=== PATIENT | male | born 1940 | race Caucasian/White ===

== ENCOUNTER 2025-10-01 15:59 | Emergency (ER) | payer MEDICARE, OTHER, SELFPAY ==
--- OUTSIDE RECORDS SUMMARY | 2025-08-31 09:20 | XMS_ITS ---
Author Organization [facility] in [place] Address [address] [place] [address] Care Team Providers Care Tunnel Kiln Firer Name Role Phone Betzy NELSON, Suyapa Primary Care Provider Valerio Ace [phone] Encounters Encounter Location Date Provider Diagnosis [facility] [address] [place] [address] 08/31/2025 Valerio Jauregui Plan Of Treatment Next Appt Details Provider Name:Valerio Jauregui, 11/02/2025 02:40:00 PM, [address], [place], [address], Progress Notes * Cordell VILLARREAL PDOB: (85 yo M)Acc No.[id number]:08/31/2025 UNLOCKED PROGRESS NOTE Progress Note Patient: Andrea WARREN Cordell Pillai :?Valerio Jauregui MDDOB:1940???Age:85 Y ???Sex:MaleDate:08/31/2025Phone:[phone]:[address], [id number]:Suyapa Bo MD Subjective: * Chief Complaints: * * Medical History: Objective: * Vitals: Assessment: Plan: * Treatment: * * Electronic signature of Valerio Jauregui MD, [id number] on 10/01/2025 at 03:48 PM EST Sign off status: PendingVisit Status:?R/S (Rescheduled) * Provider: Patrizia Jauregui MD Date: 10/31/2024 Generated for Printing/Faxing/eTransmitting on:?10/01/2025 03:48 PM EST
--- OUTSIDE RECORDS SUMMARY | 2025-09-26 08:46 | XMS_ITS | Continuity of Care Document ---
Author Organization [facility] Address [address] [place] [address] Phone Care Team Providers Care Test Design Engineer Name Role Phone Suyapa Bo MD Primary Care Provider Prince Black MD Attending Provider Igor Kennedy PA-C Emergency Provider Courtney Cleaning MD Admit Provider Courtney Cleaning MD Other Provider Dieudonne Maldonado MD Other Provider Christa Wooten RN Other Provider Unavailable Radha Toure DO Other Provider Claudio Gar MD Other Provider Hermann Luna MD Other Provider Anastasiya Panda APRN Other Provider Vanessa Hackett MD Other Provider Ghazala Li [facility] Other Provider Tara Boston Other Provider Richard Montemayor MD Attending Provider Prince Black MD Other Provider [phone] Jenny Barboza MD Other Provider Hoang Paredes MD Other Provider Maria Antonia Valencia APRN Other Provider [phone] Terrence Duke MD Other Provider Griffin Stephens DO Other Provider Marva Niru M PLANT FACILITIES TECHNICIAN Other Provider Hoang Llanos DO Other Provider Em Pulido DO Other Provider Hoang Llanos DO Other Provider [phone] Tyson Low DO Other Provider Riccardo Sandoval MD Attending Provider Riccardo Sandoval MD Other Provider Norris Cartagena DO Other Provider Griffin Stephens DO Attending Provider [phone] Tara Boston Attending Provider Brian Johnston DO Other Provider Hoang Paredes MD Admit Provider Yakelin Tenorio RN Other Provider Unavailable Korin Bazan RN Other Provider Unavailable Beryl Wright RN Other Provider Unavailable Aure Rehman RN Other Provider Unavailable Latanya Puentes RN Other Provider Unavailable Angélica Paredes RN Other Provider Unavailable Rosie Storm MD Other Provider Serge Rutherford DO Other Provider [phone] Arnulfo Stone MD Other Provider [phone] Albert Ortiz MD Other Provider [phone] Riccardo Rodrigez DO Other Provider Unavailab Omar Land MD Other Provider Unavailable Dilcia Zarco APRN Other Provider Blayne Hinkle MD Other Provider Vivian Gill MD Other Provider Unavailable Tapan Decker MD Other Provider [phone] Riccardo Rosales DO Other Provider Rajinder Clark MD Other Provider Lg Grace MD Other Provider Milana Marcus OUTSIDE OPERATOR-C Other Provider Lukasz Velez PLANT FACILITIES TECHNICIAN Other Provider Unavailable Shawn Dao MD Other Provider Dane Bray MD Other Provider Austin Angeles MD Other Provider Unavailable Angel Luis Carrion DO Other Provider Jaqueline Britton PLANT FACILITIES TECHNICIAN Other Provider [phone] Madeline Burgess MD Other Provider Leslie Panda PLANT FACILITIES TECHNICIAN Other Provider Anita Cox PLANT FACILITIES TECHNICIAN Other Provider Rickey Aj MD Other Provider Unavailable Shivam Gonzalez MD Other Provider DenysTammiealyssa DO Other Provider [phone] Rod Rosas MD Other Provider Addison Tucker MD Other Provider Yanelis Gonzalez PLANT FACILITIES TECHNICIAN Other Provider Unavailable Niki Mays MD Other Provider Hoang Colon MD Other Provider Omar Tapia MD Other Provider Bashir Ace MD Other Provider Sofiya Fang PLANT FACILITIES TECHNICIAN Other Provider Faraz Delgaod PLANT FACILITIES TECHNICIAN Other Provider Lou Moore MD Other Provider Jenna Monroy RN Other Provider Unavailable LigiaVanic DO Other Provider [phone] Uziel Gee DO Other Provider Paul Dang MD Other Provider Linnea Blair OUTSIDE OPERATOR-C Other Provider Unavailable Jacinto Bah MD Other Provider Maria Antonia Valencia APRN Attending Provider Jacinto Bah MD Attending Provider Care Teams Patient Care Team Team Status: Active Member Role/Relationship Status Dates Suyapa Bo MD Primary Care Provider Active Visit Care Team Team Status: Inactive Member Role/Relationship Status Dates Suyapa Bo MD Primary Care Provider Active Sta rt: June 30, 2025 End: June 30neena Black MDAttending ProviderActive Start: June 30, 2025 End: June 30, 2025 Visit Care Team Team Status: Active Member Role/Relationship Status Dates Suyapa Bo MD Primary Care Provider Active Sta rt: August 18, 2025 VAHE Alberts-Chris ProviderActiveStart: August 18, 2025 Courtney Cleaning MDAdmit ProviderActiveStart: August 18, 2025 Courtney Cleaning MDOther ProviderActiveStart: August 18, 2025 Dieudonne Maldonado MDOther ProviderActiveStart: August 18, 2025 Christa Wooten RNOther ProviderActiveStart: August 18, 2025 Christa Wooten RNOther ProviderActiveStart: August 18, 2025 Radha Toure DOOther ProviderActiveStart: August 18, 2025 Claudio Gar MDOther ProviderActiveStart: August 18, 2025 Hermann Luna MDOther ProviderActiveStart: August 18, 2025 Anastasiya Panda APRNOther ProviderActiveStart: August 18, 2025 Vanessa Hackett MDOther ProviderActiveStart: August 18, 2025 RADHA DolanP-BCOther ProviderActiveStart: August 18, 2025 Pantera [place] MDOther ProviderActiveStart: August 18, 2025 Richard Montemayor , MDAttending ProviderActiveStart: August 18, 2025 Riccardo Sandoval MDOther ProviderActiveStart: August 18, 2025 End: September 09, 2025Brian Johnston , DOAttending ProviderActiveStart: August 18, 2025 End: September 09, 2025 Visit Care Team Team Status: Active Member Role/Relationship Status Dates Suyapa Bo MD Primary Care Provider Active Sta rt: August 25, 2025 Igor Kennedy PA-CEmergency ProviderActiveStart: August 25, 2025 Courtney Cleaning MDAdmit ProviderActiveStart: August 25, 2025 Dieudonne Maldonado MDOther ProviderActiveStart: August 25, 2025 Pantera [place] MDOther ProviderActiveStart: August 25, 2025 Prince Black MDOther ProviderActiveStart: August 25, 2025 Jenny Barboza MDOther ProviderActiveStart: August 25, 2025 Honag Paredes MDOther ProviderActiveStart: August 25, 2025 Maria Antonia Valencia , APRNOther ProviderActiveStart: August 25, 2025 Terrence Duke MDOther ProviderActiveStart: August 25, 2025 Griffin Stephens DOOther ProviderActiveStart: August 25, 2025 Niru Durham , APRNOther ProviderActiveStart: August 25, 2025 Hoang Llanos DOOther ProviderActiveStart: August 25, 2025 Em Pulido , DOOther ProviderActiveStart: August 25, 2025 Hoang Llanos , DO FELLOWOther ProviderActiveStart: August 25, 2025 Tyson Low , DO FELLOWOther ProviderActiveStart: August 25, 2025 Jessica Winn ProviderActiveStart: August 25, 2025 Riccardo Sandoval MDOther ProviderActiveStart: August 25, 2025 Norris Cartagena DOOther ProviderActiveStart: August 25, 2025 Griffin Stephens DOAttending ProviderActiveStart: August 25, 2025 Griffin Stephens DOOther ProviderActiveStart: August 25, 2025 Niru Durham , APRNOther ProviderActiveStart: August 25, 2025 Hoang Llanos , DOOther ProviderActiveStart: August 25, 2025 Em Pulido , DOOther ProviderActiveStart: August 25, 2025 Hoang Santosu , DO FELLOWOther ProviderActiveStart: August 25, 2025 Tyson Low , DO FELLOWOther ProviderActiveStart: August 25, 2025 Visit Care Team Team Status: Active Member Role/Relationship Status Dates Suyapa Bo MD Primary Care Provider Active Sta rt: September 01, 2025 Desire Alberts ProviderActiveStart: September 01, 2025 Courtney Cleaning MDAdmit ProviderActiveStart: September 01, 2025 Dieudonne Maldonado MDOther ProviderActiveStart: September 01, 2025 Pantera [place] MDOther ProviderActiveStart: September 01, 2025 Prince Black MDOther ProviderActiveStart: September 01, 2025 Jenny Barboza MDOther ProviderActiveStart: September 01, 2025 Hoang Paredes MDOther ProviderActiveStart: September 01, 2025 Maria Antonia Valencia , APRNOther ProviderActiveStart: September 01, 2025 Terrence Duke MDOther ProviderActiveStart: September 01, 2025 Griffin Stephens , DOAttending ProviderActiveStart: September 01, 2025 Griffin Stephens , DOOther ProviderActiveStart: September 01, 2025 Niru Durham , APRNOther ProviderActiveStart: September 01, 2025 Hoang Llanos , DOOther ProviderActiveStart: September 01, 2025 Em Pulido , DOOther ProviderActiveStart: September 01, 2025 Hoang Llanos , DO FELLOWOther ProviderActiveStart: September 01, 2025 Tyson Low , FELLOWOther ProviderActiveStart: September 01, 2025 Riccardo Sandoval MDOther ProviderActiveStart: September 01, 2025 Norris Cartagena , DOOther ProviderActiveStart: September 01, 2025 Visit Care Team Team Status: Active Member Role/Relationship Status Dates Suyapa Bo MD Primary Care Provider Active Sta rt: September 08, 2025 Mychal Albertsy ProviderActiveStart: September 08, 2025 Courtney Cleaning MDAdmit ProviderActiveStart: September 08, 2025 Dieudonne Maldonado MDOther ProviderActiveStart: September 08, 2025 Pantera Boston MDAttending ProviderActiveStart: September 08, 2025 Pantera [place] MDOther ProviderActiveStart: September 08, 2025 Jenny Barboza MDOther ProviderActiveStart: September 08, 2025 Hoang Paredes MDOther ProviderActiveStart: September 08, 2025 Maria Antonia Valencia , APRNOther ProviderActiveStart: September 08, 2025 Terrence Duke MDOther ProviderActiveStart: September 08, 2025 Griffin Stephens , DOOther ProviderActiveStart: September 08, 2025 Niru Durham , APRNOther ProviderActiveStart: September 08, 2025 Hoang Llanos , Other ProviderActiveStart: September 08, 2025 Em Pulido , DOOther ProviderActiveStart: September 08, 2025 Hoang Llanos , FELLOWOther ProviderActiveStart: September 08, 2025 Tyson Low , DO FELLOWOther ProviderActiveStart: September 08, 2025 Riccardo Sandoval MDOther ProviderActiveStart: September 08, 2025 Brian Johnston , DOOther ProviderActiveStart: September 08, 2025 Visit Care Team Team Status: Active Member Role/Relationship Status Dates Suyapa Bo MD Primary Care Provider Active Sta rt: September 09, 2025 Nahomy Arrieta ProviderActiveStart: September 09, 2025 Hoang Paredes MDOther ProviderActiveStart: September 09, 2025 Yakelin Tenorio , SANCHEZOther ProviderActiveStart: September 09, 2025 Korin Bazan , SANCHEZOther ProviderActiveStart: September 09, 2025 Beryl Wright , SANCHEZOther ProviderActiveStart: September 09, 2025 Aure Rehman RNOther ProviderActiveStart: September 09, 2025 Latanya Puentes RNOther ProviderActiveStart: September 09, 2025 Angélica Paredes RNOther ProviderActiveStart: September 09, 2025 Rosie Storm MDOther ProviderActiveStart: September 09, 2025 Serge Rutherford , DOOther ProviderActiveStart: September 09, 2025 Arnulfo Stone MDOther ProviderActiveStart: September 09, 2025 Norris Cartagena , DOOther ProviderActiveStart: September 09, 2025 Albert Ortiz MDOther ProviderActiveStart: September 09, 2025 Courtney Cleaning MDOther ProviderActiveStart: September 09, 2025 Riccardo Rodrigez , DOOther ProviderActiveStart: September 09, 2025 Omar Rain MDOther ProviderActiveStart: September 09, 2025 Dilcia Zarco , APRNOther ProviderActiveStart: September 09, 2025 Blayne Hinkle MDOther ProviderActiveStart: September 09, 2025 Vivian Gill MDOther ProviderActiveStart: September 09, 2025 Tapan Decker MDOther ProviderActiveStart: September 09, 2025 Riccardo Rosales , DOOther ProviderActiveStart: September 09, 2025 Rajinder Clark MDOther ProviderActiveStart: September 09, 2025 Lg Grace MDOther ProviderActiveStart: September 09, 2025 Milana Marcus , OUTSIDE OPERATOR-COther ProviderActiveStart: September 09, 2025 Lukasz Velez , APRNOther ProviderActiveStart: September 09, 2025 Shawn Dao MDOther ProviderActiveStart: September 09, 2025 Dane Bray MDOther ProviderActiveStart: September 09, 2025 Austin Angeles MDOther ProviderActiveStart: September 09, 2025 Angel Luis Carrion , DOOther ProviderActiveStart: September 09, 2025 Jaqueline Britton , APRNOther ProviderActiveStart: September 09, 2025 Brian Johnston , DOOther ProviderActiveStart: September 09, 2025 Madeline Burgess MDOther ProviderActiveStart: September 09, 2025 Leslie Panda , APRNOther ProviderActiveStart: September 09, 2025 Anita Cox , APRNOther ProviderActiveStart: September 09, 2025 Rickey Aj MDOther ProviderActiveStart: September 09, 2025 Shivam Gonzalez MDOther ProviderActiveStart: September 09, 2025 Elli Mcfarlane , DOOther ProviderActiveStart: September 09, 2025 Rod Rosas MDOther ProviderActiveStart: September 09, 2025 Addison Tucker MDOther ProviderActiveStart: September 09, 2025 Yanelis Gonzalez , APRNOther ProviderActiveStart: September 09, 2025 Niki Mays MDOther ProviderActiveStart: September 09, 2025 Hoang Colon MDOther ProviderActiveStart: September 09, 2025 Omar Tapia MDOther ProviderActiveStart: September 09, 2025 Bashir Ace MDOther ProviderActiveStart: September 09, 2025 Sofiya Fang , APRNOther ProviderActiveStart: September 09, 2025 Faraz Delgado , APRNOther ProviderActiveStart: September 09, 2025 Lou Moore MDOther ProviderActiveStart: September 09, 2025 Jenna Monroy RNOther ProviderActiveStart: September 09, 2025 Jagdish Strong , DOOther ProviderActiveStart: September 09, 2025 Dieudonne Maldonado MDOther ProviderActiveStart: September 09, 2025 Uziel Gee , DOOther ProviderActiveStart: September 09, 2025 Griffin Stephens DOAttending ProviderActiveStart: September 09, 2025 Griffin Stephens DOOther ProviderActiveStart: September 09, 2025 Niru Durham , APRNOther ProviderActiveStart: September 09, 2025 Hoang Llanos DOOther ProviderActiveStart: September 09, 2025 Em Pulido DOOther ProviderActiveStart: September 09, 2025 Hoang Llanos DO FELLOWOther ProviderActiveStart: September 09, 2025 Tyson Low DO FELLOWOther ProviderActiveStart: September 09, 2025 Paul Dang MDOther ProviderActiveStart: September 09, 2025 Linnea Blair NP-COther ProviderActiveStart: September 09, 2025 Pantera [place] MDOther ProviderActiveStart: September 09, 2025 Jacinto Bah MDOther ProviderActiveStart: September 09, 2025 Visit Care Team Team Status: Active Member Role/Relationship Status Dates Suyapa Bo MD Primary Care Provider Active Sta rt: September 16, 2025 Nahomy Arrieta ProviderActiveStart: September 16, 2025 Hoang Paredes MDOther ProviderActiveStart: September 16, 2025 Yakelin Tenorio , SANCHEZOther ProviderActiveStart: September 16, 2025 Korin Bazan , SANCHEZOther ProviderActiveStart: September 16, 2025 Beryl Wright , SANCHEZOther ProviderActiveStart: September 16, 2025 Aure Rehman , SANCHEZOther ProviderActiveStart: September 16, 2025 Latanya Puentes , SANCHEZOther ProviderActiveStart: September 16, 2025 Angélica Paredes , SANCHEZOther ProviderActiveStart: September 16, 2025 Rosie Storm MDOther ProviderActiveStart: September 16, 2025 Serge Rutherford , DOOther ProviderActiveStart: September 16, 2025 Arnulfo Stone MDOther ProviderActiveStart: September 16, 2025 Norris Cartagena , DOOther ProviderActiveStart: September 16, 2025 Albert Ortiz MDOther ProviderActiveStart: September 16, 2025 Courtney Cleaning MDOther ProviderActiveStart: September 16, 2025 Riccardo Rodrigez DOOther ProviderActiveStart: September 16, 2025 Omar Rain MDOther ProviderActiveStart: September 16, 2025 Dilcia Zarco , APRNOther ProviderActiveStart: September 16, 2025 Blayne Hinkle MDOther ProviderActiveStart: September 16, 2025 Vivian Gill MDOther ProviderActiveStart: September 16, 2025 Tapan Decker MDOther ProviderActiveStart: September 16, 2025 Riccardo Rosales DOOther ProviderActiveStart: September 16, 2025 Rajinder Clark MDOther ProviderActiveStart: September 16, 2025 Lg Grace MDOther ProviderActiveStart: September 16, 2025 Milana Marcus , OUTSIDE OPERATOR-COther ProviderActiveStart: September 16, 2025 Lukasz Velez , APRNOther ProviderActiveStart: September 16, 2025 Shawn Dao MDOther ProviderActiveStart: September 16, 2025 Dane Bray MDOther ProviderActiveStart: September 16, 2025 Austin Angeles MDOther ProviderActiveStart: September 16, 2025 Angel Luis Carrion , DOOther ProviderActiveStart: September 16, 2025 Jaqueline Britton , APRNOther ProviderActiveStart: September 16, 2025 Brian Johnston , DOOther ProviderActiveStart: September 16, 2025 Madeline Burgess MDOther ProviderActiveStart: September 16, 2025 Leslie Panda , APRNOther ProviderActiveStart: September 16, 2025 Anita Cox , APRNOther ProviderActiveStart: September 16, 2025 Rickey Aj MDOther ProviderActiveStart: September 16, 2025 Shivam Gonzalez MDOther ProviderActiveStart: September 16, 2025 Elli Mcfarlane , DOOther ProviderActiveStart: September 16, 2025 Rod Rosas MDOther ProviderActiveStart: September 16, 2025 Addison Tucker MDOther ProviderActiveStart: September 16, 2025 Yanelis Gonzalez APRNOther ProviderActiveStart: September 16, 2025 Niki Mays MDOther ProviderActiveStart: September 16, 2025 Hoang Colon MDOther ProviderActiveStart: September 16, 2025 Omar Tapia MDOther ProviderActiveStart: September 16, 2025 Bashir Ace MDOther ProviderActiveStart: September 16, 2025 Sofiya Fang APRNOther ProviderActiveStart: September 16, 2025 Faraz Delgado , APRNOther ProviderActiveStart: September 16, 2025 Lou Moore MDOther ProviderActiveStart: September 16, 2025 Jenna Monroy , RNOther ProviderActiveStart: September 16, 2025 Jagdish Strong , DOOther ProviderActiveStart: September 16, 2025 Dieudonne Maldonado MDOther ProviderActiveStart: September 16, 2025 Uziel Gee , DOOther ProviderActiveStart: September 16, 2025 Griffin Stephens , DOOther ProviderActiveStart: September 16, 2025 Niru Durham , APRNOther ProviderActiveStart: September 16, 2025 Hoang Llanos , DOOther ProviderActiveStart: September 16, 2025 Em Pulido , DOOther ProviderActiveStart: September 16, 2025 Hoang Llanos , DO FELLOWOther ProviderActiveStart: September 16, 2025 Tyson Low , DO FELLOWOther ProviderActiveStart: September 16, 2025 Paul Dang MDOther ProviderActiveStart: September 16, 2025 Linnea Blair , TEZ-COther ProviderActiveStart: September 16, 2025 Pantera [place] MDOther ProviderActiveStart: September 16, 2025 Jacinto Bah MDOther ProviderActiveStart: September 16, 2025 Maria Antonia Valencia , APRNAttending ProviderActiveStart: September 16, 2025 Visit Care Team Team Status: Active Member Role/Relationship Status Dates Suyapa Bo MD Primary Care Provider Active Sta rt: September 23, 2025 Hoang Paredes MDAdmit ProviderActiveStart: September 23, 2025 Hoang Paredes MDOther ProviderActiveStart: September 23, 2025 Yakelin Tenorio , SANCHEZOther ProviderActiveStart: September 23, 2025 Korin Bazan , SANCHEZOther ProviderActiveStart: September 23, 2025 Beryl Wright , SANCHEZOther ProviderActiveStart: September 23, 2025 Aure Rehman , SANCHEZOther ProviderActiveStart: September 23, 2025 Latanya Puentes , SANCHEZOther ProviderActiveStart: September 23, 2025 Angélica Paredes , SANCHEZOther ProviderActiveStart: September 23, 2025 Rosie Storm MDOther ProviderActiveStart: September 23, 2025 Serge Rutherford DOOther ProviderActiveStart: September 23, 2025 Arnulfo Stone MDOther ProviderActiveStart: September 23, 2025 Norris Cartagena , DOOther ProviderActiveStart: September 23, 2025 Albert Ortiz MDOther ProviderActiveStart: September 23, 2025 Courtney Cleaning MDOther ProviderActiveStart: September 23, 2025 Riccardo Rodrigez , DOOther ProviderActiveStart: September 23, 2025 Omar Rain MDOther ProviderActiveStart: September 23, 2025 Dilcia Zarco , APRNOther ProviderActiveStart: September 23, 2025 Blayne Hinkle MDOther ProviderActiveStart: September 23, 2025 Vivian Gill MDOther ProviderActiveStart: September 23, 2025 Tapan Decker MDOther ProviderActiveStart: September 23, 2025 Riccardo Rosales , Other ProviderActiveStart: September 23, 2025 Rajinder Clark MDOther ProviderActiveStart: September 23, 2025 Lg Grace MDOther ProviderActiveStart: September 23, 2025 Milana Marcus , OUTSIDE OPERATOR-COther ProviderActiveStart: September 23, 2025 Lukasz Velez , APRNOther ProviderActiveStart: September 23, 2025 Shawn Dao MDOther ProviderActiveStart: September 23, 2025 Dane Bray MDOther ProviderActiveStart: September 23, 2025 Austin Angeles MDOther ProviderActiveStart: September 23, 2025 Angel Luis Carrion , DOOther ProviderActiveStart: September 23, 2025 Jaqueline Britton , APRNOther ProviderActiveStart: September 23, 2025 Brian Johnston , DOOther ProviderActiveStart: September 23, 2025 Madeline Burgess MDOther ProviderActiveStart: September 23, 2025 Leslie Panda , APRNOther ProviderActiveStart: September 23, 2025 Anita Cox , APRNOther ProviderActiveStart: September 23, 2025 Rickey Aj MDOther ProviderActiveStart: September 23, 2025 Shivam Gonzalez MDOther ProviderActiveStart: September 23, 2025 Elli Mcfarlane , DOOther ProviderActiveStart: September 23, 2025 Rod Rosas MDOther ProviderActiveStart: September 23, 2025 Addison Tucker MDOther ProviderActiveStart: September 23, 2025 Yanelis Gonzalez , APRNOther ProviderActiveStart: September 23, 2025 Niki Mays MDOther ProviderActiveStart: September 23, 2025 Hoang Colon MDOther ProviderActiveStart: September 23, 2025 Omar Tapia MDOther ProviderActiveStart: September 23, 2025 Bashir Ace MDOther ProviderActiveStart: September 23, 2025 Sofiya Fang , APRNOther ProviderActiveStart: September 23, 2025 Faraz Delgado , APRNOther ProviderActiveStart: September 23, 2025 Lou Moore MDOther ProviderActiveStart: September 23, 2025 Jenna Monroy RNOther ProviderActiveStart: September 23, 2025 Jagdish Strong , DOOther ProviderActiveStart: September 23, 2025 Dieudonne Maldonado MDOther ProviderActiveStart: September 23, 2025 Uziel Gee , DOOther ProviderActiveStart: September 23, 2025 Griffin Stephens , DOOther ProviderActiveStart: September 23, 2025 Niru Durham , APRNOther ProviderActiveStart: September 23, 2025 Hoang Llanos , DOOther ProviderActiveStart: September 23, 2025 Em Pulido , DOOther ProviderActiveStart: September 23, 2025 Hoang Llanos , DO FELLOWOther ProviderActiveStart: September 23, 2025 Tyson Low , FELLOWOther ProviderActiveStart: September 23, 2025 Paul Dang MDOther ProviderActiveStart: September 23, 2025 Linnea Blair NP-COther ProviderActiveStart: September 23, 2025 Pantera Boston MDOther ProviderActiveStart: September 23, 2025 Jona Paytonending ProviderActiveStart: September 23, 2025 Jacinto Bah MDOther ProviderActiveStart: September 23, 2025 Chief Complaint and Reason for Visit Chief Complaint Admit Date CEA: 4 mo f/u COPD, Pulm Nodules Sept er 2024 2:16pm Vomiting, abd pain August 18, 2025 6 :31pm Vomiting, abd pain August 25, 2025 1 2:00am Vomiting, abd pain September 01, 2025 12:00am Vomiting, abd pain September 08, 2025 12:00am gangrenous cholecystits s/p cholecysecto my September 09, 2025 12:12pm gangrenous cholecystits s/p cholecysecto my September 16, 2025 12:00am gangrenous cholecystits s/p cholecysecto my September 23, 2025 12:00am Reason for Visit Admit Date Pneumonia June 30, 2025 2:16pm Pulmonary nodules June 30, 2025 2:16pm COPD (chronic obstructive pulmonary dise ase) June 30, 2025 2:16pm Pressure ulcer of left buttock, stage 3 August 18, 2025 6:31pm Abdominal pain August 18, 2025 6 :31pm Acute cholecystitis August 18, 2025 6 :31pm Acute gangrenous cholecystitis July 232024 6:31pm Acute kidney injury superimposed on CKD August 18, 2025 6:31pm Acute UTI August 18, 2025 6 :31pm Alzheimers disease August 18, 2025 6 :31pm Ambulatory dysfunction August 18 6:31pm Anemia August 18, 2025 6 :31pm Anemia of renal disease August 18 6:31pm Anticoagulant long-term use July 6:31pm Bile leak August 18, 2025 6 :31pm Bile leak, postoperative August 18, 2 025 6:31pm Candidemia August 18, 2025 6 :31pm Cholelithiasis August 18, 2025 6 :31pm CKD (chronic kidney disease), stage III August 18, 2025 6:31pm COPD (chronic obstructive pulmonary dise ase) August 18, 2025 6:31pm Counseling regarding advance directives and goals of care August 18, 2025 6:31pm History of heart artery stent August 182024 6:31pm History of non-ST elevation myocardial infarction (NSTEMI) August 18, 2025 6:31pm Hyperkalemia August 18, 2025 6 :31pm Hypertensive chronic kidney disease with stage 1 through stage 4 chronic ki August 18, 2025 6:31pm Hyponatremia August 18, 2025 6 :31pm Impaired mobility and activities of boy y living August 18, 2025 6:31pm 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 Octobe r 2024 6:31pm Leukocytosis August 18, 2025 6 :31pm Mechanical heart valve present July 232024 6:31pm Metabolic acidosis August 18, 2025 6 :31pm Severe protein-calorie malnutrition Octo claire 2024 6:31pm Arthritis September 09, 2025 12:12pm Debility September 09, 2025 12:12pm Ileostomy in place September 09, 2025 12:12pm Neurogenic bladder September 09, 2025 12:12pm Pressure injury of deep tissue of left h eel September 09, 2025 12:12pm Pressure ulcer of left buttock, stage 3 September 09, 2025 12:12pm Stage I pressure ulcer of right heel Navin embcasi 2024 12:12pm Acute gangrenous cholecystitis September 09, 2025 12:12pm Ambulatory dysfunction September 09 12:12pm Anemia September 09, 2025 12:12pm Bile leak September 09, 2025 12:12pm Candidemia September 09, 2025 12:12pm CKD (chronic kidney disease), stage III September 09, 2025 12:12pm COPD (chronic obstructive pulmonary dise ase) September 09, 2025 12:12pm Counseling regarding advance directives and goals of care September 09, 2025 12:12pm Hyperkalemia September 09, 2025 12:12pm Hypertensive chronic kidney disease with stage 1 through stage 4 chronic ki September 09, 2025 12:12pm Impaired mobility and activities of boy y living September 09, 2025 12:12pm 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 Novemb er 2024 12:12pm Metabolic acidosis September 09, 2025 12:12pm Severe protein-calorie malnutrition Hari mbcasi 2024 12:12pm Reason for Referral Type Reason(s) Provider Provider Contact Information Freya tavera Address Start Date Please schedule when discharged from Rehab.To follow at Rehab.Follow up after discharge from skilled facilityfor left buttock and left heel; call to schedule follow up appointmentFollow up with rehab physician as neededPlease schedule when discharged from Rehab.[facility] Coumadin ClinicWork Phone: [phone] [facility] [address] [place] [address]Af follow at Rehab.Dieudonne Tapia MDWork Phone: [phone] [facility] [address] [place] [address]Kclmohpuoqxjosh Black MDWork Phone: [phone] [facility] [address] [place] [address]DiayqAnastasiya Panda , APRNWork Phone: [phone] [facility] [place] [address]Cicpen up after discharge from skilled facilityK[facility] Coumadin ClinicWork Phone: [phone] [facility] [address] [place] [address]uce left buttock and left heel; call to schedule follow up appointmentNOR[facility]WEST [facility] Wound Care CenterWork Phone: [phone] [place] [address]UlixsoDieudonne Tapia MDWork Phone: [phone] [facility] [address] [place] [address]Vlutipmmmdther Terra Black MDWork Phone: [phone] [facility] [address] [place] [address]DxetyAnastasiya Panda , APRNWork Phone: [phone] [facility] [address] [place] [address]Tzxe to schedule follow up appointment with PCP after discharge from skilled facilitySuyapa Bo MDWork Phone: [phone] [facility] [place] [address]Mhcxce up with rehab physician as neededHoang Paredes MDWork Phone: [phone] [facility], [address] [place] [address] Allergies, Adverse Reactions, Alerts Allergen Type Severity Reaction Last Updated Verified Status Vhzkizs-MDM-VlS Reductase Inhibitor Allergy Unknown Joint Pain July 9:59am Yes Active Social History Smoking Status Status Start Date End Date Date of Observa tion Never smoked tobacco (finding) September 14, 2025 4:28pm Observation Status Observation Response Date of Response Legal Sex Male (finding) Sex Assigned At BirthMaleApril 1939 Social History Assessments Assessment Value Date Recorded SDOH Follow up September 09, 2025 12:16pmQuestionAnswerDate RecordedHas the SDOH screening changed since admission?[facility] 2024 12:16pm Assessment Value Date Recorded SDOH Follow up September 07, 2025 2:59pmQuestionAnswerDate RecordedHas the SDOH screening changed since admission?[facility] 2024 2:59pm Assessment Value Date Recorded SDOH Follow up August 21, 2025 3:55pmQuestionAnswerDate RecordedHas the SDOH screening changed since admission?NOctober 2024 3:55pm Family History Relationship Condition Age at Onset Recorded Date/T torri Not Specified Myocardial infarction Unknown Disorder of thyroidUnknownfatherHeart diseaseUnknownDeceasedUnknownmother DeceasedUnknownMalignant neoplasmUnknownsisterDeceasedUnknown Problems Active Problems Problem Diagnosis/Recorded Date Onset Date Status C alannah Stage I pressure ulcer of ri ght heel September 09, 2025 2:37pm Unknown Active Pressure ulcer of left buttock, stage 3Nov2024 3:01pmUnknownActive Pressure injury of deep tissue of left heelSeptember 09, 2025 2:37pmUnknown ActiveIleostomy in placeOctober 2018 4:08acNeiniefAjqveo4956Ghvl cancer August 06, 2019 11:11amUnknownActiveNeurogenic bladderAugember 2024 2:34pmUnknownActiveArthritisOctober 2018 11:10amUnknownActive HyperlipidemiaOctober 2018 11:08amUnknownActiveNasal polypsJune 2023 1:02pmUnknownActiveCramps of lower extremityJun2024 7:07amUnknownActive Pulmonary nodulesJune 2023 11:47amUnknownActiveDebilityNovember 2024 2:33pmUnknownActivePneumoniaOctober 2018 11:11amUnknownActiveAsthmaOctober 2018 11:07amUnknownActiveInactive/Resolved Problems Problem Diagnosis/Recorded Date Onset Date Status C omments ORLIN (acute kidney injury) August 06, 2019 8:43am Unknown Resolved Proble m List clean-up per request of Phys. EHR Cmte ORLIN (acute kidney injury) January 03, 2025 11:42am Unknown Resolved Bile leak, postoperativeNovember 2024 2:55pmUnknownResolvedCounseling regarding advance directives and goals of careNovember 2024 3:18pmUnknown ResolvedImpaired mobility and activities of daily livingNovst. mary's hospital 2024 2:55pmUnknownResolvedHistory of non-ST elevation myocardial infarction (NSTEMI) August 19, 2025 1:58pmUnknownResolvedHistory of mechanical aortic valve replacementMar 2024 2:32pmUnknownResolvedSevere protein-calorie malnutritionNovember 2024 11:21amUnknownResolvedAmbulatory dysfunction September 07, 2025 11:21amUnknownResolvedHistory of heart artery stentMar 2024 12:30pmUnknownResolvedCKD (chronic kidney disease), stage IIIMar 2024 4:27pmUnknownResolved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Nov2024 9:13amUnknownResolvedAlzheimers diseaseJune 2024 7:07amUnknown ResolvedAnemiaNov2024 11:21amUnknownResolvedAnticoagulant long-term useOctten broeck hospital 2018 7:25amUnknownResolvedProblem List clean-up per request of Phys. EHR CmteHypertensive chronic kidney disease with stage 1 through stage 4 chronic kidney disease, or unspecified chronic kidney diseaseNovember 2024 9:17amUnknownResolvedHyponatremiaNovember 2024 2:03pmUnknownResolved LeukocytosisNov2024 9:13amUnknownResolvedCandidemiaNovst. mary's hospital 2024 2:55pmUnknownResolvedHAP (hospital-acquired pneumonia)January 03, 2025 11:42amUnknownResolvedPleural effusionMarch 2024 1:03pmUnknownResolved Aspiration pneumoniaOctober 2018 7:24amUnknownResolvedProblem List clean- up per request of Phys. EHR CmteSteroid-induced hyperglycemiaMarch 2024 9:57amUnknownResolvedUrinary retentionMarch 2024 12:26pmUnknownResolved Mechanical heart valve presentOctober 2024 1:58pmUnknownResolvedAcute kidney injury superimposed on CKDOctober 2024 3:26pmUnknownResolvedIron deficiency anemiaMarch 2024 12:55pmUnknownResolvedAcute non-ST elevation myocardial infarction (NSTEMI)January 03, 2025 11:42amUnknownResolvedDVT prophylaxisOctober 2018 8:43amUnknownResolvedProblem List clean-up per request of Phys. EHR CmteSupratherapeutic INRMay 2019 5:37pmUnknown ResolvedProblem List clean-up per request of Phys. EHR CmteIleostomy status August 07, 2019 12:16amUnknownResolvedProblem List clean-up per request of Phys. EHR CmteAcute UTIMay 2019 5:37pmUnknownResolvedProblem List clean-up per request of Phys. EHR CmteAcute UTIOctober 2024 10:03pmUnknownResolved SBO (small bowel obstruction)August 06, 2019 8:42amUnknownResolvedProblem List clean-up per request of Phys. EHR CmteCOPD (chronic obstructive pulmonary disease)August 06, 2019 11:07amUnknownResolvedMetabolic acidosisOctober 2024 3:27pmUnknownResolvedH/O aortic valve replacementOctober 2018 8:43am UnknownResolvedProblem List clean-up per request of Phys. EHR CmteBile leak August 31, 2025 3:11pmUnknownResolvedAnemia of renal diseaseMarch 2024 4:33pmUnknownResolvedNausea & vomitingMay 2019 5:37pmUnknownResolved Problem List clean-up per request of Phys. EHR CmteAbdominal painOctober 2024 10:03pmUnknownResolvedHypertensionOctober 2018 11:08amUnknownResolved HypotensionMarch 2024 12:53pmUnknownResolvedPneumoniaOctober 2018 4:48pmUnknownResolvedProblem List clean-up per request of Phys. EHR Cmte PneumoniaOctober 2018 7:24amUnknownResolvedProblem List clean-up per request of Phys. EHR CmteStrokeOctober 2018 11:10amUnknownResolvedAcute cholecystitisOctober 2024 3:28pmUnknownResolvedAcute gangrenous cholecystitisNov2024 2:54pmUnknownResolvedCholelithiasisOctober 2024 10:03pmUnknownResolvedNSVT (nonsustained ventricular tachycardia) January 13, 2025 12:30pmUnknownResolvedHyperkalemiaMercy Health [facility]field Hospital 2024 4:26pm UnknownResolved Medications Medication Status Dose Units Route Directions Qty Days Refills S tart Date Stop Date End Date Reason(s) Instructions Adherence Donepezil 10 mg tablet Active 10 MG PO Every mor tammy March 02, 2020 11:00pmUnknownAlbuterol Sulfate (Ventolin Hfa) 90 mcg/actuation Hfa Aerosol LuadbrnQkkseuhqooge6AQFCVEPSAUPRERMVUQI 4-6 HOURS as needed for Shortness Of BreathMa2019 11:00pmM[facility] 20[facility] 2:22pm Txoknwmgsly-Uybgesfhx-Edleinfd (Trelegy Ellipta) 100-62.5-25 mcg blister with cfpkquVafdkwwirvqp0QSPXSCASOKSPQZIzvho morningMa2019 11:00pmJune 2023 6:47amCephalexin (Keflex) 500 mg sfmdnxtUycpuwborgef352IFBDOnssk bspmj6888 March 02, 2020 11:00pmJune 2023 11:50amOndansetron 4 mg tablet,ptttoolvtvmiztJldmyupcnvon8LWCCL2Z as needed for nausea and aprhgriw280 March 02, 2020 11:00pmJune 2023 8:18amcalcium carbonate-vitamin D3 Tmzenglbywet2MUCGYQvcshBodjr 2024 11:00pmNovst. mary's hospital 2024 12:42pm vxshuoatwgqSpgattxypysr25ULJKIrhta dailyMercy Health Fairfield Hospital 2024 11:00pmSeptember 2024 1:30pmHold if SBP <508hbacovmlscketkiunyuPxkpnbvfbxer36ZVYYZtkieZdikr 2024 11:00pmMercy Health Fairfield Hospital 2024 10:37amisosorbide utpuecvpawjHljhffkwyygk50FUYM .qdinnerMercy Health Fairfield Hospital 2024 11:00pmMercy Health Fairfield Hospital 2024 10:37foekjlrwffXbqlvdvkafee663 MGPODailyMercy Health Fairfield Hospital 2024 11:00pmMercy Health [facility] Hospital 2024 10:37amTamsulosin (Flomax) 0.4 mg capsuleDiscontinued0.4MGPODailyMercy Health Fairfield Hospital 2024 11:00pmDeceencompass health valley [facility] 2024 2:17pmWarfarin 6 mg WsquzjZxxxfuwexinj9RABK.COMPLEXMercy Health Fairfield Hospital 2024 11:00pmJune 2024 11:48am6 mg orally SUMOTUTHFR; 3 mg orally WESAClonidine Hcl 0.2 mg tabletDiscontinued0.2MGPOTwice dailyMercy Health Fairfield Hospital 2024 11:00pmMercy Health Fairfield Hospital 2024 10:36amClopidogrel 75 mg MevwzxFtczylqurcnb30FNMDQyouv164430Nzpwg 2024 11:00pmNovst. mary's hospital 2024 2:58pmAspirin 81 mg Tablet,Delayed Release (Dr/Ec) Oijbhf46VFOXRljbv25601Iuiyy 2024 11:00pmUnknownNitroglycerin 0.4 mg Tablet, SublingualActive0.1VQJYDWPOWKSLM2L as needed for Chest Jacj67608Dwpgm 2024 11:00pmUnknownMetoprolol Tartrate 25 mg WdlmzsSstdgemjhlpx29UMWYYmbjq sdchf594386Hjavv 2024 11:00pmJune 2024 11:47amAmiodarone 200 mg QimpgaMpdntjshtdza393FZSVYudmv64957Gxmow 2024 11:00pmApril 2024 1:48pmFurosemide 20 mg DzqsnfDfdxikxtslsb58TVHGQwist at 1488305013Zpaho 2024 11:00pmApril 2024 1:47pmIsosorbide Mononitrate 30 mg tablet extended release 24 jlLrejvnayrkxz79YQEVUijuu630353Ceovv 2024 11:00pm[facility] 2024 2:58pmAmiodarone 200 mg bfnwspNkvzifqulmsc725KLKSMwuqv219943Nmjnj 2024 11:00pmD[facility] 2024 2:17pmstart after 2 weeks of 400 mg daily Atorvastatin 20 mg JsbhzjFutyam33IHUJSrkao pqmfhyj10430Cvepp 2024 11:00pm UnknownAcetaminophen (Tylenol) 325 mg WtszloCgmyhy856KFBXU3K102656Frsuinnv 2024 12:00amUnknownSodium Bicarbonate 650 mg FeotmwHnwqcsqydlgd6709WWZN1t/Day with omyhe896168Tohrkyzl 2024 12:00am[facility] 20[facility] 2:17pmOxycodone 5 mg QorbnmMosjupeyqzqd6SXCDFpino 6 hours as needed for Iiof8718Dgvziehg 2024[facility] 2024 2:17pmAcute gangrenous cholecystitis Acute cholecystitisSodium Zirconium Cyclosilicate (Lokelma) 10 gram Powder In DelpctWgitxoguwqwz14GNVABtwji149Aluvfrie 2024 12:00am[facility] 2024 2:17pmMicafungin 100 mg recon lxkdKqrofsqilbqs271BIHULoiez9Ffkjkdgw 2024 12:00am[facility] 2024 2:17pmadminister over 60 minsTorsemide 20 mg Tablet Nmvnfd92XRTZXPWHW@653926Ksahaeqq 2024 12:00amUnknownOxycodone 5 mg Tablet Kdqnrf9MHNSWoryl 6 hours as needed for Ufdp2979Dlkdwqdt 5th, 2025Pressure injury of right heel, stage 1 Cramps of lower extremity Pressure ulcer of right heel, stage 1 Cramp and spasmUnknownHeparin, Porcine (Pf) (Heparin Lockflush(Porcine)(Pf)) 100 unit/mL RjtyhdrQrbipl990VCHBAT-HCVXSbmho at yzfqaps11Nwkfvmrf 5th, 2025 12:00am UnknownMelatonin 5 mg SyevxiSswaju6QFYLNumla at dthsjmi46Xnjzncnb 5th, 2025 12:73wsTknvjlcOneycumMftbgp8yrwdnjajldfbjsFnldx pnurqwy30Zprnrksx 5th, 2025 12:00amUnknownWarfarin 2 mg qzbnqeXswrya8JJJDIdpgm10400Wfyzztuu 6th, 2025 12:00amUnknownCholestyramine (With Sugar) 4 gram PowderDiscontinued0.ROUTE .COMPLEXOctten broeck hospital 2018 11:00pm[facility] 2023 6:48amOne scoop in juice or waterMontelukast (Singulair) 10 mg NhgixrHfqslnilirzy04MLHGOemszulGxlzvnq 2018 11:00pm[facility] 2024 2:17pmAlbuterol Sulfate (Ventolin Hfa) 90 mcg/actuation Hfa Aerosol GajqxbtVrkxgnshxgyl64GCUPPIFOUSFPTK0G as needed for Shortness Of BreathOctten broeck hospital 2018 11:00pmMay 2019 2:26pm Limevohvjjf-Dzjyrrvzd-Vayvfxxi (Trelegy Ellipta) 100-62.5-25 mcg Blister With RqpqfgJamsdrtaootc981QTUNARLSDHXLTVxskgStbhxfv 2018 11:00pmMay 2019 2:26pmMultivitamin (Daily Multi-Vitamin) ArtkfwJbegobakyqao8QFJFAFutjwXctokzr 2018 11:00pmMercy Health [facility] Hospital 2024 10:17wqFqgep-2i-Vnk-Epa-Fish Oil (Troup-3 Fish Oil) 300-1,000 mg JjbhylyGqaedpqydckp2678TGCFGVhxke dailyOctten broeck hospital 2018 11:00pmMercy Health [facility] Hospital 2024 10:38amVerapamil 180 mg Tablet Extended Release Rxlmraadylyz003VSCQZzkbnCaiddtm 15th, 2019 11:00pmMarch 2024 10:37am Yfcwiavtplmu-Rbyzpezt-Knjdky (Vision Plus Lutein) VtgjdrQcpvwmqjdfkh4ZLEUYZgtsa August 05, 2019 11:00pmJune 2023 8:19amWarfarin 6 mg TabletDiscontinued 6MGPODailyOct2018 11:00pmOct2018 6:52amAmoxicillin-Pot Clavulanate (Augmentin) 500-125 mg ykrbnaMrvmbbemouzx9DADLGFqduk olwuj588Sonpnun 19th, 2019 11:00pmMay 2019 2:26pmWarfarin 6 mg VyeqgzTgxojzungjwu8RFPN Rfqvq55HcdknniAugust 10, 2019 6:49amMarch 2024 10:39amContinue to titrate dose as he previously done prior to admission.Glipizide 5 mg ljamznZwwjewtpsndo1CHLF DailyJune 2023 11:00pmJun2023 8:18amFreeTextSi tablet 30 minutes before breakfast Orally Once a day; Note: Source Status: Taking; Pr ovider: Wayne Morrison ( )Enoxaparin 100 mg/mL syringe Xthfaxnvhxzs734XIRUDUOUVm DirectedJun2023 11:00pmJun2023 8:19am FreeTextSig: as directed Injection; Note: Source Status: Taking; Provider: Wayne Morrison ( )Cholestyramine (With Sugar) 4 gram powder Rneantebgzpf1WAYXHLGlamlZmms 2nd, 2024 11:00pmMercy Health [facility] Hospital 2024 11:34am FreeTextSi packet mixed with water or non-carbonated drink Orally Once a day; Note: Source Status: Taking; Provider: Wayne Morrison ( )Wfkdubwnbxh-Msicmyltk-Gyjbmpuk (Trelegy Ellipta) 100-62.5-25 mcg blister with rlqsktJxfspvcocstq2YCASCBWNXZCJSKqbfrYmvt 2023 11:00pmSeptember 09, 2025 12:43pmFreeTextSi puff Inhalation Once a day; Note: Source Status: Continue; Provider: Wayne BarakatVit E-Txxcoe-Unclgqrk capsuleDiscontinuedCAPPODailyJune 2023 11:00pmMarch 2024 10:38am Furosemide 20 mg meekxbQwbmcufejguf40WAGPKolqo dailyApr2024 1:45pmJune 2024 11:46amEmpagliflozin (Jardiance) 25 mg zwkhciBncjvbfclhif95IZUSUywal February 16, 2025 11:00pmNovember 2024 2:58pmAmiodarone 200 mg tablet Uypzdjdtsiqj099XCDNJohzcKbksb 2024 1:48pmApr2024 1:54pm Pantoprazole 40 mg tablet,delayed release (DR/EC)Xykrzx69WKVPHlxosDwkue 28th, 2025 11:00pmUnknownFerrous Sulfate 325 mg (65 mg iron) tablet,delayed release (DR/EC)Mzgckuigrqoa773JDQCUfqtNqqxi 2024 11:00pmSeptember 25, 2025 2:17pm On Hold: pending improvement with therapy and bowelsTerazosin 2 mg capsule Xblapzycunyp2WRABRsbnh at bedtimeApr2024 11:00pmDe2024 2:17pmOxygen unitDiscontinued0.RouteApril 2024 11:00pmApr2024 2:00pmAs directedOxygen unitDiscontinued0.RouteApril 2024 1:58pmDe2024 2:17pmAs directed 2-3 L/M [facility].Metoprolol Succinate 50 mg tablet extended release 24 jkEynyij60MIZJHxnefRsbn 2024 11:00pmUnknownWarfarin 2 mg uauuzwQetcrpntcaee3WMQTBhrnyLsec 2024 11:00pm September 25, 2025 2:17pmTorsemide 20 mg krsxagWnuyvlshoaeu40USIECmjphApbh 2024 11:00pmSeptember 25, 2025 2:17pmOn Hold: Until seen by nephrology or increased swelling Immunizations Immunization Event Date Not Given Reason Dose Number Front Maker Lot Number Reason(s) Given Vaccine Information Statement (VIS) Detail Administration Location COVID-19 mRNA-1273 (Moderna) November 24, 2020 COVID-19 mRNA-1273 (Moderna)December 22OVID-19 mRNA-1273 (Moderna)September 26, 2021Fluzone QIV High-Dose 65YR+July 01, [id number] Medical Equipment Device Date Implanted Device Details CL STENT DANICA FRONTIER 3.0 X 12 January 06, 2025 CL STENT DANICA FRONTIER 3.0 X 30March L STENT DANICA FRONTIER 3.5 X 18 January 06, 2025Femoral artery closure plug/patch, synthetic polymerMarch 2024UDI: [id number] Issuing Agency: [facility] Device Id: [id number] Lot Number: [id number] Vital Signs Vital Reading Result Reference Range Collection Date/Time Height 72 [in_i] June 30, 2025 1:49yfBbvdqu45.82 kgSept2024 1:31pmHeart Rate94 /bxx09-810Kneifjuvb 9th, 2025 1:31pmRespiratory rate20 /bzt15-25Sclefibvi 9th, 2025 1:31pmOxygen saturation by Pulse kqawbxnk03 %95-100Sept2024 1:31pmBP Qzsimgwq386 mm[Hg]100-140Sept2024 1:31pmBP Ozgxxkcqx74 mm[Hg]60-100September 2024 1:31pmBMI (Body Mass Index)25.3 kg/b7Ggyyykdyf2024 1:31pmInhaled oxygen flow rate2 L/minSept2024 1:31pmHeight 77 [in_i]September 08, 2025 3:88tvJdcsew82.50 kgNov2024 5:40amBody Vhcbrpypmon92.9 [degF]97.6-99.0September 09, 2025 8:22amHeart Rate90 /xyg04-090 September 09, 2025 8:22amRespiratory rate17 /cgh82-62WluozxxqSeptember 09, 2025 8:22am Oxygen saturation by Pulse ycjnlpel46 %95-100September 09, 2025 8:22amBP Kxtaynmb919 mm[Hg]100-140September 09, 2025 8:22amBP Rmcongtov65 mm[Hg]60-100 September 09, 2025 8:22amInhaled oxygen flow rate2 L/minAt[facility] Health [facility]2024 8:18hhDeyuqz76 [in_i]September 22, 2025 12:24uhOncipe17.90 kgDecember 2024 4:27amBody Rswavxaoied71.9 [degF]97.6-99.0Dece2024 6:45amHeart Vezd047 /bhf39-727UgvhlfgrSeptember 26, 2025 6:45amRespiratory rate20 /fee53-36Szxyabri 6th, 2025 6:45amOxygen saturation by Pulse iwypvobq969 %95-100September 26, 2025 6:45amBP Glthrfob931 mm[Hg]100-140Dece2024 6:45amBP Hxorvtdyf10 mm[Hg] 60-100Dece2024 6:45amInhaled oxygen flow rate2 L/minDs[facility] 2024 8:00am Advance Directives Advance Directive Response Recorded Date/ Time Advance Directives Yes April 03 8:07am Insurance Providers Guarantor Cordell Villarreal , P Address [address] [place] [address]Vherbqb Info.Home Phone: Coverage Status Update:2025 Payer Group Member ID Coverage Type Subscriber Relationship to Subscriber Effective Date Expiration Date Medicare [id number] Kline , P Id: [id number] [address] [place] [address] Home Phone: Email: [email or web address]-IP Part A [id number] Kline , P Id: [id number] [address] [place] [address] Home Phone: Email: [email or web address] [facility] [employer] [place] [id number] Kline , Freya Id: [id number] [address] [place] [address] Home Phone: Email: [email or web address] [email or web address] Encounter Location(s) Arrival/Admit Date Discharge/Departure Date Discharge/Departure Disposition Provider(s) Departed Physician/ Provider [facility] June 30, 2025 2:16pm June 30, 2025 3:12pm Discharged to home care or self care (routine discharge) Prince Black MD Non-patient / Non-visit -[facility] Cardiology O ctober 2024 6:31pm Chas Duran MDNon-patient / Dch-yptgg-Brxhpikxg Health [facility] DisNovst. [facility] 2024 12:00amMRianna Gary-patient / Svz-dblmr-Mndssmwqj [facility] 20[facility] 12:00amGriffin Stephens Jr DONal-patient / Vzj-dwwcx-Wxrmxxyjm [facility] 2024 12:00Woodrow Boston MD Non-patient / Tgf-lbhle-Pappfryxj [facility] 2024 12:12pm Jr Meli Moreland-patient / Hge-lrvuh-Zrngvnhmt [facility] September 16, 2025 12:00Stacia Hanson-patient / [facility]-visit- [facility] Neph [facility] 2024 12:00Bella Bah MD Recent Diagnosis Onset Date Admit Date Pneumonia Unknown June 30, 025 2:16pm Pulmonary nodules Unknown June 30, 2025 2:16pm COPD (chronic obstructive pulmonary disease) Unk nown June 30, 2025 2:16pm Pressure ulcer of left buttock, stage 3 Unknown August 18, 2025 6:31pm Abdominal pain Unknown August 18 6:31pm Acute cholecystitis Unknown July 6:31pm Acute gangrenous cholecystitis Unknown O ctober 2024 6:31pm Acute kidney injury superimposed on CKD Unknown August 18, 2025 6:31pm Acute UTI Unknown August 18 6:31pm Alzheimers disease Unknown August 18, 2025 6:31pm Ambulatory dysfunction Unknown July 232024 6:31pm Anemia Unknown August 18 6:31pm Anemia of renal disease Unknown August 18, 2025 6:31pm Anticoagulant long-term use Unknown Octo 2024 6:31pm Bile leak Unknown August 18 6:31pm Bile leak, postoperative Unknown August 18, 2025 6:31pm Candidemia Unknown August 18 6:31pm Cholelithiasis Unknown August 18 6:31pm CKD (chronic kidney disease), stage III Unknown August 18, 2025 6:31pm COPD (chronic obstructive pulmonary disease) Unk nown August 18, 2025 6:31pm Counseling regarding advance directives and goals of care Unknown August 18, 2025 6:31pm History of heart artery stent Unknown Oc tober 2024 6:31pm History of non-ST elevation myocardial infarction (NSTEMI) Unknown August 18, 2025 6:31pm Hyperkalemia Unknown August 18 6:31pm Hypertensive chronic kidney disease with stage 1 through stage 4 chronic ki Unknown August 18, 2025 6:31pm Hyponatremia Unknown August 18 6:31pm Impaired mobility and activi ties of daily living Unknown August 18, 2025 6:31pm 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 Unknown August 18, 2025 6:31pm Leukocytosis Unknown August 18 6:31pm Mechanical heart valve present Unknown O ctober 2024 6:31pm Metabolic acidosis Unknown August 18, 2025 6:31pm Severe protein-calorie malnutrition Unknown August 18, 2025 6:31pm Arthritis Unknown September 09 12:12pm Debility Unknown September 09 12:12pm Ileostomy in place Unknown August 12:12pm Neurogenic bladder Unknown August 12:12pm Pressure injury of deep tissue of left heel Unkn own September 09, 2025 12:12pm Pressure ulcer of left buttock, stage 3 Unknown September 09, 2025 12:12pm Stage I pressure ulcer of right heel Unknown September 09, 2025 12:12pm Acute gangrenous cholecystitis Unknown N ovember 2024 12:12pm Ambulatory dysfunction Unknown September 09, 2025 12:12pm Anemia Unknown September 09 12:12pm Bile leak Unknown September 09 12:12pm Candidemia Unknown September 09 12:12pm CKD (chronic kidney disease), stage III Unknown September 09, 2025 12:12pm COPD (chronic obstructive pulmonary disease) Unk nown September 09, 2025 12:12pm Counseling regarding advance directives and goals of care Unknown September 09, 2025 12:12pm Hyperkalemia Unknown September 09 12:12pm Hypertensive chronic kidney disease with stage 1 through stage 4 chronic ki Unknown September 09, 2025 12:12 pm Impaired mobility and activi ties of daily living Unknown September 09, 2025 12:12pm 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 Unknown September 09, 2025 12:12pm Metabolic acidosis Unknown August 12:12pm Severe protein-calorie malnutrition Unknown September 09, 2025 12:12pm Assessments Diagnosis Onset Date Resolution Status Admit Date Pneumonia acuteSeptember 2024 2:16pmPulmonary nodulesacuteSeptember 2024 2:16pm COPD (chronic obstructive pulmonary disease)inactiveSeptember 2024 2:16pm Pressure ulcer of left buttock, stage 3acuteOctober 2024 6:31pmAbdominal paininactiveOct2024 6:31pmAcute cholecystitisinactiveOct2024 6:31pmAcute gangrenous cholecystitisinactiveOctober 2024 6:31pmAcute kidney injury superimposed on CKDinactiveOctober 2024 6:31pmAcute UTI inactiveOctober 2024 6:31pmAlzheimers diseaseinactiveOct2024 6:31pmAmbulatory dysfunctioninactiveOctten [facility] 2024 6:31pmAnemiainactive August 18, 2025 6:31pmAnemia of renal diseaseinactiveOct2024 6:31pmAnticoagulant long-term useinactiveAugust 18, 2025 6:31pmBile leak [facility] 20[facility] 6:31pmBile leak, postoperativeinactiveM[facility] 2024 6:31pmCandidemiainactiveM[facility] 2024 6:31pmCholelithiasisinactive August 18, 2025 6:31pmCKD (chronic kidney disease), stage IIIinactiveM[facility] 2024 6:31pmCOPD (chronic obstructive pulmonary disease)[facility] 2024 6:31pmCounseling regarding advance directives and goals of care [facility] 2024 6:31pmHistory of heart artery [facility]inaSelect [facility] 20[facility] 6:31pmHistory of non-ST elevation myocardial infarction (NSTEMI) [facility] 2024 6:31pmHyperkalemiainaSelect Specialty Hospital[facility] 2024 6:31pm Hypertensive chronic kidney disease with stage 1 through stage 4 chronic ki inactiveM[facility] 2024 6:31pmHyponatremiainaSelect Specialty Hospital[facility] 2024 6:31pm Impaired mobility and activities of daily livinginaSelect Specialty Hospital[facility] 2024 6:31pm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inaSelect Specialty Hospital-[facility] 2024 6:31pm LeukocytosisinaSelect [facility]ty [facility] 2024 6:31pmMechanical heart valve present [facility] 2024 6:31pmMetabolic acidosisinaSelect Specialty Hospital[facility] 2024 6:31pmSevere protein-calorie malnutritioninaSelect [facility]ty Hospital[facility] 2024 6:31pm [facility] 12:12pmDebilityacuteB[facility] 2024 12:12pmIleostomy in placeMartha[facility] 2024 12:12pmNeurogenic bladderacute September 09, 2025 12:12pmPressure injury of deep tissue of left heelacute September 09, 2025 12:12pmPressure ulcer of left buttock, stage 3acuteNovember 2024 12:12pmStage I pressure ulcer of right heelMartha's [facility]yard Hospital 2024 12:12pmAcute gangrenous cholecystitisinaEd[facility] 2024 12:12pm Ambulatory dysfunctioninaEd[facility] 2024 12:12pmAnemiainactiveNov2024 12:12pmBile leakinactiveSeptember 09, 2025 12:12pmCandidemiainactive September 09, 2025 12:12pmCKD (chronic kidney disease), stage IIIinactive September 09, 2025 12:12pmCOPD (chronic obstructive pulmonary disease)inactive September 09, 2025 12:12pmCounseling regarding advance directives and goals of careinactiveSeptember 09, 2025 12:12pmHyperkalemiainaJoint [facility]2024 12:12pmHypertensive chronic kidney disease with stage 1 through stage 4 chronic kiinactiveSeptember 09, 2025 12:12pmImpaired mobility and activities of daily livingina[facility]20[facility] 12:12pm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 inactiveSeptember 09, 2025 12:12pmMetabolic acidosisinactiveAt[facility] Health [facility]2024 12:12pmSevere protein-calorie malnutritioninactiveAt[facility] Health [facility]2024 12:12pm Plan of Treatment Author [facility] 2024 2:09pmPatient is clinically stable and potentially was fluid overloaded during recent PFTs. Presently, feels that patient is clinically doing well and patient agrees. I feel that the pulmonary function tests are more indicative of his volume overload and are not clearly in the indication of his present respiratory status. We will plan follow-up in 4 months with pulmonary function test prior to reevaluate and ensure there is not an ongoing trend of decreasing pulmonary function. They are in agreement with this plan. No refills are required at this time and they will call when refills are required. All questions were answered. The patient and his spouse were advised to call us if there are any new respiratory issues or concerns. Future Tests Future scheduled test information is unavailable Pending Tests Pending diagnostic test information is unavailable Future Visits Future appointment information is unavailable Future Procedures Procedure Name Ordered Date Scheduled Date Calorie Count September 03, 2025 4:32pm Novem claire 2024 4:32pm Diet Supplement August 27, 2025 3:50pm Novemb er 2024 3:50pm PICC Line Insertion Consult September 04, 2025 1:33pm September 04, 2025 1:33pm Admit Status Order August 18, 2025 5:30pm Oct jacob 2024 5:31pm Discharge Order September 09, 2025 9:45am Novem claire 2024 9:45am Consult to General Surgery August 18, 2025 6: 30pm August 18, 2025 6:30pm Consult to Infectious Diseases August 30 12:59pm August 30, 2025 12:59pm Consult to Nephrology August 20, 2025 10:14am August 20, 2025 10:14am Consult to Palliative Care Doctor August 27, 2025 1:15pm August 27, 2025 1:15pm Consult to Physiatry August 26, 2025 11:59am August 26, 2025 11:59am Diet Special Request September 09, 2025 12:25pm September 09, 2025 12:25pm Diet Supplement September 09, 2025 12:25pm [facility] 2024 12:25pm Feeding Strategies/Supervision/Equipme nt/Location September 10, 2025 8:03am September 10, 2025 8:03am Admit Status Order September 09, 2025 12:19pm N ovember 2024 12:19pm Consult to Adult Hospitalist September 09, 2025 12:19pm September 09, 2025 12:19pm Discharge Order September 26, 2025 8:05am Decemb er 2024 8:05am Consult to General Surgery September 09, 2025 1 2:35pm September 09, 2025 12:35pm Consult to Nephrology September 14, 2025 9:29am September 14, 2025 9:29am Consult to Palliative Care Doctor September 09, 2025 12:35pm September 09, 2025 12:35p m Complete Pulmonary Function June 30, 2025 1:57pm 4 Months Future Medications Future medication information is unavailable Patient Instructions Instruction Admit Date Hope Pamphlet August 18, 2025 6 :31pm Hope [facility]let September 09, 2025 12:12pm
[2025-10-01 16:06] VITALS: BP 137/90; PULSE 86; TEMP 38.5; O2SAT 95; BMI 29.8
--- NOTE | 2025-10-01 16:19 | ECG_ITS ---
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 Measurements Intervals [place] Rate: 97 P: -[id number] PA: -[id number] QRS: 159 QRSD: 170 T: 26 QT: 364 QTc: 418 Interpretive Statements Atrial fibrillation 2450 Right bundle branch block 3533 Lateral myocardial infarction, probably old 19997 Twave abnormality, possible anterior ischemia or digitalis effect 9150 abnormal ECG No previous ECG available for comparison Electronically Signed On 10-01-2025 18:21:45 EST by SINDY RAMIREZ M.D.
[2025-10-01] MEDS: ACETAMINOPHEN 650 MG RECTAL SUPPOSITORY PR (16:41)
[2025-10-01] MEDS: 0.9 % SODIUM CHLORIDE 1,000 ML 1000 ML IV (16:41)
[2025-10-01 16:49] LABS: Hematocrit 33.1 % (42.0-54.0); Hemoglobin 9.8 g/dL (14.0-18.0); Immature Granulocytes Abs Auto 0.07 10^3/uL (0.00-0.03); Immature Granulocytes Pct Auto 0.5 % (0.0-0.5); Lymphocytes Absolute Auto 0.3 10^3/uL (1.2-3.8); Mean Corpuscular HGB Conc 29.6 g/dL (29.9-35.2); Mean Corpuscular Hemoglobin 26.3 pg (25.9-34.0); Mean Corpuscular Volume 88.7 fL (80.0-94.0); Platelet Count 234 10^3/uL (150-450); Red Blood Count 3.73 10^6/uL (4.70-6.10); White Blood Count 14.0 10^3/uL (4.0-11.0)
[2025-10-01 16:54] LABS: Glucose Urine UA NEGATIVE (NEGATIVE)
[2025-10-01 17:01] LABS: SARS-CoV-2 Ag NEGATIVE (NEGATIVE)
[2025-10-01 17:13] LABS: Cast Seen? NONE SEEN #/LPF (NONE SEEN); Crystals Seen? None Seen #/HPF (None Seen); Urine Culture Indicated YES-FRMC
--- NOTE | 2025-10-01 17:19 | ED.GENADUL1 ---
HPI HPI - General Adult General Chief complaint: Altered Mental Status Stated complaint: Altered mental status Time Seen by Provider: 10/01/25 16:05 Source: medical record Mode of arrival: ambulance Limitations: no limitations and altered mental status History of Present Illness HPI narrative: 85-year-old male presented for altered mental status. [facility] They did not send any paperwork with him initially. He is confused and unable to provide any history and there are no family members with him. Reportedly his symptoms began at noon today, a few hours ago. No history of trauma. He was noted to have a fever at triage. He reportedly had gallbladder surgery but it is not clear when and he has a colostomy. Related Data Home Medications ?Medication ?Instructions ?Recorded ?Confirmed acetaminophen 325 mg tablet 650 mg PO Q4H PRN pain or fever 10/01/25 10/01/25 aspirin 81 mg tablet,delayed 81 mg PO .qd 10/01/25 10/01/25 release atorvastatin 20 mg tablet 20 mg PO .qhs 10/01/25 10/01/25 donepezil 10 mg tablet 10 mg PO .qd 10/01/25 10/01/25 fluticasone fur. 100 mcg-umeclid 1 inh inhalation DAILY 10/01/25 10/01/25 62.5 mcg-vilant 25 mcg inhalat.powder (Trelegy Ellipta) melatonin 5 mg capsule 5 mg PO .qhs 10/01/25 10/01/25 metoprolol succinate 50 mg 50 mg PO .qd 10/01/25 10/01/25 tablet,extended release 24 hr oxycodone 5 mg tablet 5 mg PO Q6H PRN pain 10/01/25 10/01/25 pantoprazole 40 mg tablet,delayed 40 mg PO .acb 10/01/25 10/01/25 release torsemide 20 mg tablet 20 mg PO .QD 10/01/25 10/01/25 torsemide 20 mg tablet 20 mg PO DAILY 10/01/25 10/01/25 warfarin 2 mg tablet 2 mg PO .qhs 10/01/25 10/01/25 Allergies Allergy/AdvReac Type Severity Reaction Status Date / Time No Known Drug Allergies Allergy Verified 10/01/25 16:35 Review of Systems ROS Narrative Unobtainable, altered mental status Exam Narrative Exam Narrative: Nurses note and vital signs reviewed General:The patient appears in no apparent distress. Skin:Warm, dry, no pallor noted. There is no rash noted. Head:Normocephalic, atraumatic; neck supple, no nuchal rigidity Eye: Normal conjunctiva, no drainage Ears, Nose, Mouth, and Throat: oral mucosa is somewhat dry. Nares patent. Cardiovascular:Regular Rate and Rhythm Respiratory:Patient is in no distress, no accessory muscle use, lungs are clear to auscultation, no wheezing, rales or rhonchi Back:non-tender GI: Soft and nontender Musculoskeletal: The patient has no evidence of calf tenderness, no pitting edema, symmetrical pulses noted bilaterally Neurological: Awake and alert. He knows his name but does not know the year or where he is or why he is here. Psychiatric:Cooperative Constitutional Vital Signs, click to edit/add: Last Vital Signs Temp 101.3 F H 10/01/25 16:06 Pulse 86 10/01/25 16:06 Resp 20 10/01/25 16:06 BP 137/90 10/01/25 16:06 Pulse Ox 95 10/01/25 16:06 O2 Del Method Nonrebreather 10/01/25 16:06 O2 Flow Rate 10 10/01/25 16:06 Course Vital Signs Vital signs: Vital Signs Temperature 101.3 F H 10/01/25 16:06 Pulse Rate 86 10/01/25 16:06 Respiratory Rate 20 10/01/25 16:06 Blood Pressure 137/90 10/01/25 16:06 Pulse Oximetry 95 10/01/25 16:06 Oxygen Delivery Method Nonrebreather 10/01/25 16:06 Oxygen Delivery Flow Rate 10 10/01/25 16:06 Temperature 101.3 F H 10/01/25 16:06 Pulse Rate 86 10/01/25 16:06 Respiratory Rate 20 10/01/25 16:06 Blood Pressure 137/90 10/01/25 16:06 Pulse Oximetry 95 10/01/25 16:06 Oxygen Delivery Method Nonrebreather 10/01/25 16:06 Oxygen Delivery Flow Rate 10 10/01/25 16:06 Medical Decision Making MDM Narrative Medical decision making narrative: Workup here indicates pyelonephritis. He has a fever with altered mental status. He was given rectal Tylenol and IV fluids and was given 2 g of IV Rocephin. Chest x-ray shows bilateral effusions which appear to be old but also CHF. CT brain shows no acute findings. CT of the abdomen indicates the pyelonephritis with no complications from his recent gallbladder surgery. I discussed the case with Dr. Mays who recommends the patient be transferred to [facility] and this is in progress. He is hemodynamically stable and family is agreeable for transfer. Differential Diagnosis Differential Diagnosis: UTI, pyelonephritis, pneumonia, dehydration Lab Data Lab results reviewed: Yes I reviewed the patient's lab results Labs: Lab Results 10/01/25 10/01/25 10/01/25 Range/Units 16:25 16:34 16:39 WBC 14.0 H (4.0-11.0) 10^3/uL RBC 3.73 L (4.70-6.10) 10^6/uL Hgb 9.8 L (14.0-18.0) g/dL Hct 33.1 L (42.0-54.0) % MCV 88.7 (80.0-94.0) fL MCH 26.3 (25.9-34.0) pg MCHC 29.6 L (29.9-35.2) g/dL RDW 20.3 H (11.0-15.0) % Plt Count 234 (150-450) 10^3/uL MPV 9.9 (9.5-13.5) fL Neut % (Auto) 96.2 H (43.0-75.0) % Lymph % (Auto) 2.2 L (20.5-60.0) % [place] % (Auto) 0.7 L (1.7-12.0) % Eos % (Auto) 0.1 L (0.9-7.0) % Baso % (Auto) 0.3 (0.2-2.0) % Neut # (Auto) 13.4 H (1.4-6.5) 10^3/uL Lymph # (Auto) 0.3 L (1.2-3.8) 10^3/uL [place] # (Auto) 0.1 L (0.3-0.8) 10^3/uL Eos # (Auto) 0.0 (0.0-0.7) 10^3/uL Baso # (Auto) 0.0 (0.0-0.1) 10^3/uL Abs Immat Gran (auto) 0.07 H (0.00-0.03) 10^3/uL Imm/Tot Granulo (auto) 0.5 (0.0-0.5) % Sodium 136 (136-145) mmol/L Potassium 3.9 (3.5-5.1) mmol/L Chloride 98 (98-107) mmol/L Carbon Dioxide 25.9 (21.0-32.0) mmol/L Anion Gap 16.0 BUN 54.0 H (7.0-18.0) mg/dL Creatinine 2.01 H (0.70-1.30) mg/dL Est GFR ( Amer) 39 L (>=60 mL/min/1.73m^2) Est GFR (Non-Af Amer) 32 L (>=60 mL/min/1.73m^2) BUN/Creatinine Ratio 26.9 Glucose 79 (74-106) mg/dL Lactate 5.5 H* (0.4-2.0) mmol/L Calcium 8.8 (8.5-10.1) mg/dL Total Bilirubin 1.7 H (0.2-1.0) mg/dL Direct Bilirubin 1.1 H* (0.0-0.2) mg/dL AST 30 (15-37) U/L ALT 16 (16-63) U/L Alkaline Phosphatase 437 H (46-116) U/L Troponin I High Sens 73.4 (4.0-76.1) pg/mL Total Protein 7.3 (6.4-8.2) g/dL Albumin 2.3 L (3.4-5.0) g/dL Globulin 5.0 g/dL Albumin/Globulin Ratio 0.5 Amylase 49 (25-115) U/L Lipase 42.0 (16.0-77.0) U/L Urine Color Lt. yellow (YELLOW) Urine Clarity Cloudy A (CLEAR) Urine pH 6.0 (5.0-9.0) Ur Specific [place] 1.010 (1.005-1.025) Urine Protein 100 A (NEG/TRACE) mg/dL Urine Glucose (UA) Negative (NEGATIVE) mg/dL Urine Ketones Negative (NEGATIVE) mg/dL Urine Occult Blood Large A (NEGATIVE) Urine Nitrite Negative (NEGATIVE) Urine Bilirubin Negative (NEGATIVE) Urine Urobilinogen 0.2 (0.2-1.0) EU/dL Ur Leukocyte Esterase Large A (NEGATIVE) Urine RBC 5-10 A (0-2) #/HPF Urine WBC 75-100 A (NONE SEEN) #/HPF Ur Squamous Epith Cells Few A (NONE/RARE) #/LPF Urine Crystals None seen (None Seen) #/HPF Urine Bacteria Large A (NONE SEEN) #/HPF Urine Casts None seen (NONE SEEN) #/LPF Urine Mucus None seen (NONE SEEN) Ur Culture Indicated? Yes-[facility] [place] Influenza Type A Ag Negative Influenza Type B Ag Negative SARS-CoV-2 Ag (CV2AG) Negative (NEGATIVE) Imaging Data Chest x-ray: Radiologist's impression: ITS Impressions Abdomen/Pelvis CT 10/01/25 17:30 IMPRESSION: Evaluation degraded due to motion artifact and arm positioning. Focal areas of diminished enhancement involving the superior pole left kidney noted could be artifactual but could raise possibility for focal pyelonephritis. Correlate with urinalysis findings. Bladder wall thickening noted possibly related to under distention, cystitis may be considered. Common bile duct stent noted with pneumobilia within the common duct and pancreas. No intrahepatic ductal gas noted, correlate with liver function tests. Mild ascites. Moderate-sized effusions and bibasilar consolidation, favor compressive atelectasis. Impression dictated by: Scottie Edouard M.D. 10/01/2025 6:19 PM Dictation Location: [employer] Electronically authenticated by: [id number] Y Date: 10/01/2025 18:[address] 10/01/25 17:30 IMPRESSION: Motion degradation. If there is continued concern, consider repeating examination with sedation if there is continued concern. No definite large hemorrhage midline shift or mass effect. Chronic microvascular changes and central involutional changes noted. Patchy hypoattenuation left parietal region and along the cerebellum the of the right could be artifactual versus sequelae of prior/chronic ischemic infarct. Correlate with clinical exam findings and history. Impression dictated by: Scottie Edouard M.D. 10/01/2025 6:04 PM Dictation Location: [employer] Electronically authenticated by: [id number] Y Date: 10/01/2025 18:04 ECG Data Attestation: I personally reviewed and interpreted this ECG as follows: (My interpretation shows A-fib with a rate of 97) Discharge Plan Discharge Chief Complaint: Altered Mental Status Clinical Impression: Acute pyelonephritis, Altered mental status Patient Disposition: [facility] Time of Disposition Decision: 18:47 Discharge Location: [facility] Condition: Fair Mode of Transportation: EMS
[2025-10-01 17:20] LABS: Anion Gap 16.0; Blood Urea Nitrogen 54.0 mg/dL (7.0-18.0); Calcium 8.8 mg/dL (8.5-10.1); Carbon Dioxide 25.9 mmol/L (21.0-32.0); Chloride 98 mmol/L (98-107); Estimated GFR (African America 39 (>=60 mL/min/1.73m^2); Estimated GFR (Non-African Ame 32 (>=60 mL/min/1.73m^2); Glucose 79 mg/dL (74-106); Potassium 3.9 mmol/L (3.5-5.1); Sodium 136 mmol/L (136-145)
[2025-10-01 17:24] LABS: Alanine Aminotransferase 16 U/L (16-63); Albumin Globulin Ratio 0.5; Albumin Level 2.3 g/dL (3.4-5.0); Alkaline Phosphatase 437 U/L (46-116); Amylase 49 U/L (25-115); Aspartate Amino Transferase 30 U/L (15-37); Globulin 5.0 g/dL; Lipase 42.0 U/L (16.0-77.0); Total Protein 7.3 g/dL (6.4-8.2)
[2025-10-01 17:29] LABS: Lactate/Lactic Acid 5.5 mmol/L (0.4-2.0)
--- NOTE | 2025-10-01 17:30 | CT_ITS ---
The [address] [address] Patient Name: VOLODYMYR DAVIS MRN: [id number] date: 1940 Sex: M Assigned Patient Location: ER Current Patient Location: .MAIN Accession/Order Number: [id number] Exam Date: 10/01/2025 17:10 Report Date: 10/01/2025 18:04 At the request of: NIKKI SOMERS MD Procedure: CT head/brain wo con CT BRAIN WITHOUT CONTRAST: CLINICAL HISTORY: Altered mental status COMPARISON: None TECHNIQUE: Contiguous axial unenhanced images were obtained through the brain. This CT exam was performed using one or more following dose reduction techniques: Automated exposure control, adjustment of the mA and/or kV according to patient size, or use of iterative reconstruction technique. FINDINGS: Motion degradation challenges evaluation. Mild central involutional changes. No definite large hemorrhage, midline shift or mass effect. No definite findings of obstructive hydrocephalus. Right cerebellar hypodensities likely due to remote areas of cerebellar stroke. Possible encephalomalacia left parietal region versus artifact. Polypoid soft tissue density within the left maxillary sinuses. Evidence of prior sinus surgery noted. Atherosclerotic clear. No definite paranasal sinus air-fluid levels. No depressed calvarial fracture within the constraints of the motion CT/CT head/brain wo con IMPRESSION: Motion degradation. If there is continued concern, consider repeating examination with sedation if there is continued concern. No definite large hemorrhage midline shift or mass effect. Chronic microvascular changes and central involutional changes noted. Patchy hypoattenuation left parietal region and along the cerebellum the of the right could be artifactual versus sequelae of prior/chronic ischemic infarct. Correlate with clinical exam findings and history. Impression dictated by: Scottie Edouard M.D. 10/01/2025 6:04 PM Dictation Location: [place] [address] Electronically authenticated by: [id number] Y Date: 10/01/2025 18:04
--- NOTE | 2025-10-01 17:30 | XR_ITS ---
The [place] [id number] Patient Name: VOLODYMYR DAVIS MRN: [id number] date: 1940 Sex: M Assigned Patient Location: ER Current Patient Location: ED.MAIN Accession/Order Number: [id number] Exam Date: 10/01/2025 17:10 Report Date: 10/01/2025 17:57 At the request of: NIKKI SOMERS MD Procedure: XR chest 1V PA CHEST: CLINICAL HISTORY: Altered mental status, Fever COMPARISON: None Sternotomy wires. Enlarged cardiomediastinal silhouette with perihilar pulmonary vascular congestion. Moderate size bilateral effusions. Bibasilar airspace opacities noted. IMPRESSION: FINDINGS OF CHF WITH MODERATE-SIZED EFFUSIONS. BIBASILAR OPACITIES NOTED POSSIBLY RELATED TO COMPRESSIVE ATELECTASIS VERSUS AIRSPACE DISEASE Impression dictated by: Scottie Edouard M.D. 10/01/2025 5:57 PM Dictation Location: [place] [address] Electronically authenticated by: [id number] Y Date: 10/01/2025 17:57
--- NOTE | 2025-10-01 17:30 | CT_ITS ---
The [address] [address] Patient Name: VOLODYMYR DAVIS MRN: [id number] date: 1940 Sex: M Assigned Patient Location: ER Current Patient Location: .MAIN Accession/Order Number: [id number] Exam Date: 10/01/2025 17:10 Report Date: 10/01/2025 18:19 At the request of: NIKKI SOMERS MD Procedure: CT abdomen pelvis w con CT ABDOMEN AND PELVIS WITH INTRAVENOUS CONTRAST: CLINICAL HISTORY: fever, altered mental status COMPARISON: None TECHNIQUE: Spiral images were obtained through the abdomen and pelvis following the administration of intravenous contrast. This CT exam was performed using one or more following dose reduction techniques: Automated exposure control, adjustment of the mA and/or kV according to patient size, or use of iterative reconstruction technique. FINDINGS: Lung Bases: [Moderate to large right and moderate left-sided effusion. Consolidative changes both lung bases favor bibasilar compressive atelectasis. Cardiomegaly. No pericardial effusion.] Organs:Common bile duct stent. Pneumobilia likely due to stent is noted within the pancreas. There is minimal pneumobilia within the region of the common duct. No definite pneumobilia within the hepatic ducts of uncertain clinical significance, correlation with liver function tests. Otherwise pancreas is grossly unremarkable. Spleen unremarkable. Adrenals unremarkable. Artifacts due to extremity positioning challenges evaluation of renal parenchyma. Minimal apical enhancement left superior pole parenchyma every to be artifactual although focal pyelonephritis may be considered. Best visualized on the sagittal images, 40.[ GI: No bowel obstruction. Mild urothelial thickening involving small bowel loops may be related to under distention or may raise possibility for enteritis. Evidence of a right lower quadrant ostomy. Evidence of distal colon resection.[ Pelvis:[Bladder wall thickening could relate to under distention versus cystitis. In situ Rea catheter balloon noted. Prostate grossly unremarkable within the constraints this exam.] Peritoneum/Retroperitoneum:Mild free fluid. No free air.[Zkyf-[id number]-[id number] plaque involving the nonaneurysmal aorta. Aorta is not aneurysmal. Abd wall/Bones:Multilevel degenerative changes involving the lumbar facet joints. Diffuse body wall anasarca.[ CT/CT abdomen pelvis w con IMPRESSION: Evaluation degraded due to motion artifact and arm positioning. Focal areas of diminished enhancement involving the superior pole left kidney noted could be artifactual but could raise possibility for focal pyelonephritis. Correlate with urinalysis findings. Bladder wall thickening noted possibly related to under distention, cystitis may be considered. Common bile duct stent noted with pneumobilia within the common duct and pancreas. No intrahepatic ductal gas noted, correlate with liver function tests. Mild ascites. Moderate-sized effusions and bibasilar consolidation, favor compressive atelectasis. Impression dictated by: Scottie Edouard M.D. 10/01/2025 6:19 PM Dictation Location: [place] [address] Electronically authenticated by: [id number] Y Date: 10/01/2025 18:19
--- OUTSIDE RECORDS SUMMARY | 2025-10-01 17:58 | XMS_ITS | Encounter Summary ---
Author Organization [facility] Address [address] [place] [address] Phone Care Team Providers Care Dye Room Helper Name Role Phone Suyapa Bo MD Primary Care Provider [phone] Reason for Visit * ReasonOnset DateCommentsPOC/med hold09/25/2025 Encounter Details DateTypeDepartmentCare Team (Latest Contact Info)Bperwpplupy89/05/2025Telephone [facility] [address] [phone] Claire Linares LPN POC/med hold Social History Tobacco UseTypesPacks/DayYears UsedDateSmoking Tobacco: NeverSmokeless Tobacco: NeverAlcohol UseStandard Drinks/WeekCommentsNot Currently0 (1 standard drink = 0.6 oz pure alcohol)Sex and Gender InformationValueDate RecordedSex Assigned at BirthNot on fileLegal YcaVkfv05/25/2022 9:42 AM ESTGender IdentityNot on file Sexual OrientationNot on filedocumented as of this encounter Miscellaneous Notes * Telephone Encounter - Rupinder Augustin LPN - 09/29/2025 9:22 AM EST Call from Dr. Shah's office requesting permission to proceed with ERCP and stent removal while patient remains on blood thinners. They would like to keep the original 10.30.25 date. (P) [phone] (F) [phone] * Telephone Encounter - Claire Linares LPN - 09/25/2025 10:46 AM EST Phone call to [facility] that patient is not cleared for surgery 10/30/2025 d/t recent NH/PCI 12/2024. Will need to wait until after 12/2025. Verbalized understanding. Phoned patient to update, number listed was not working as well as his 's. Phoned daughter with update. Verbalized understanding. Faxed form to [facility]. Conformation received. documented in this encounter Plan of Treatment DateTypeDepartmentCare Team (Latest Contact Info)Guggsfgnbev04/09/2026 11:00 AM ESTOffice Visit [facility] [address] [facility] [address] [place] [phone] Anastasiya Panda, TRUCK CAR AND BUS CLEANER-LOAN ADVISER [address] [facility] [address] [place] [address] documented as of this encounter Visit Diagnoses Not on filedocumented in this encounter Additional Health Concerns AssessmentNoted TimeA fall risk assessment has been completed for the patient 07/23/2025 9:57 AM EDTdocumented as of this encounter Care Teams Team MemberRelationshipSpecialtyStart DateEnd Date Suyapa Bo MD [address] [place] [address] PCP - GeneralFamily Medicine01/20/25documented as of this encounter
--- OUTSIDE RECORDS SUMMARY | 2025-10-01 17:58 | XMS_ITS | Clinical Summary ---
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 by nebulizer over 5 to 15 minutes.0 04/19/2017Active montelukast (SINGULAIR) 10 mg tablet Take 1 tablet by mouth daily at bedtime.Active warfarin (COUMADIN) 6 mg tablet Take 6 mg by mouth daily as directed.Active cholestyramine-sucrose (QUESTRAN) 4 gram powder Take 4 g by mouth once daily.12/10/2017Active albuterol HFA (PROVENTIL HFA, VENTOLIN HFA) 90 mcg/actuation inhaler Inhale 1-2 Puffs as instructed four times daily as needed (for wheezing and shortness of breath).12/10/2017Active donepezil (ARICEPT) 10 mg tablet Take 10 mg by mouth daily at bedtime.Active OMEGA-3 FATTY XOYFW-PUI-SUS ORAL Take 1,200 mg by mouth twice daily.Active verapamil ER 180 mg 24 hr capsule Take 180 mg by mouth once daily.Active multivit with minerals/lutein (VISION PLUS LUTEIN ORAL) Take by mouth once daily.Active nkpqeztsrdc-hmptjkizr-zthxevdz (TRELEGY ELLIPTA) 100-62.5-25 mcg inhalation powder 1 Puff.Active Active Problems ProblemNoted DateDiagnosed DateAbdominal pgoyeqvvr67/04/2022Ileostomy in place 08/25/2022mall bowel lzwmauplbni77/28/2022 Family History Medical HistoryRelationCommentsCancerMotherpancreaticColon CancerSisterRelation StatusCommentsMotherSister Social History Tobacco UseTypesPacks/DayYears UsedDateSmoking Tobacco: NeverSmokeless Tobacco: FormerChew Tobacco Cessation:Counseling Given: Not Answered Alcohol UseStandard Drinks/WeekCommentsNot Currently0 (1 standard drink = 0.6 oz pure alcohol)Area Deprivation IndexAnswerDate RecordedNational Score (1-100), lower number is lower jlqi350411/16/2022State Score (1-10), lower number is lower riskNot on file11/16/2022ata from: https://www.neighborhoodatlas.medicine.[facility].edu/. Last address used for [address] 11/16/2022Sex and Gender InformationValueDate Recorded Sex Assigned at BirthNot on fileLegal ArcXomi65/02/2012 9:40 AM ESTGender IdentityNot on fileSexual OrientationNot on fileOccupationIndustryJob Start Date Job End DategraphiteNot on fileNot on fileNot on file Last Filed Vital Signs Vital SignReadingTime TakenCommentsBlood Sowijbff002/6511 10:36 AM EDT Onhzf5797 10:36 AM IJRMqccpdbzuqm03.5 ??C (99.5 ??F)01/18/2022 2:43 PM EDTRespiratory Wzas897610/25/2021 10:36 AM EDTOxygen Uuhewhkaia71%08/25/2022 10:36 AM EDTInhaled Oxygen Concentration--Jedfbz73.6 kg (202 lb)08/25/2022 10:36 AM NQPNfkdov906.6 cm (6' 5 )08/25/2022 10:36 AM EDTBody Mass Index23.9508/25/2022 10:36 AM EDT Plan of Treatment Health MaintenanceDue DateLast DoneCommentsAnxiety Sddffxedx35/19/1959Depression Xouynrabv39/19/1959DTaP,Tdap,Td Vaccine (1 - Tdap)02/08/1960hingrix Vaccine (1 of 2)1991RSV Vaccine (1 - 1-dose 75+ series)02/08/2016Pneumococcal Vaccine: 50+ (2 of 2 - PCV)Advance Directive Discussion 5Covid-19 Vaccine ( - season)/03/2021, 12/22/2020, 11/24/2020Influenza Vaccine (#1)/03/2022, 08/23/2021, 08/16/2020, Additional history existsDiabetes Dfargwbjt43/05/2022, 07/28/2022, 07/27/2022, Additional history tlirfaIpdleqresyyMpkbltrtbdpu33/10/2004, 10/02/2003Colorectal Cancer ScreeningDiscontinuedCT ColonographyDiscontinued Cologuard (FIT-DNA)DiscontinuedFecal Occult BloodDiscontinuedSigmoidoscopy Discontinued Procedures Procedure NamePriorityDate/TimeAssociated DiagnosisCommentsBASIC METABOLIC PANEL Esvqnvd5901/18/2022 4:25 AM EDT COLONOSCOPY, GI12/01/2003 from Last 3 Months or Most Recently Relevant to Health Maintenance Results * (ABNORMAL) BASIC METABOLIC PNL (01/18/2022 4:25 AM EDT)ComponentValueRef Range Test MethodAnalysis TimePerformed AtPathologist VyhyuvvqoRgiypgc620(H)74 - 99 mg/dL01/18/2022 6:19 AM EDTCASHTABULA GENERAL HOSPITAL LABComment: The [place] Diabetes Association (ADA) provides guidance for cutoff values for fasting glucose andrandom glucose. The ADA defines fasting as no caloric intake for at least 8 hours. Fasting plasma glucose results between 100 to 125 mg/dL indicate increased risk for diabetes (prediabetes). Fasting plasma glucose results greater than or equal to 126 mg/dL meet the criteria for diagnosis of diabetes. In the absence of unequivocal hyperglycemia, results should be confirmed by repeat testing. In a patient with classic symptoms of hyperglycemia or hyperglycemic crisis, random plasma glucose results greater than or equal to 200 mg/dL meet the criteria for diagnosis of diabetes. Reference: Standards of Medical Care in Diabetes 2016, [place] Diabetes Association. Diabetes Care. 2016.39(Suppl 1). QUW613 - 24 mg/dL01/18/2022 6:19 AM [facility] Creatinine1.45(H)0.73 - 1.22 mg/dL01/18/2022 6:19 AM [facility] MPWEgysos343424 - 144 mmol/L01/18/2022 6:19 AM [facility] LABPotassium4.13.7 - 5.1 mmol/L01/18/2022 6:19 AM [facility] VFJAwvfwohq54969 - 105 mmol/L01/18/2022 6:19 AM [facility] IVYOV87605 - 30 mmol/L01/18/2022 6:19 AM [facility] LABAnion Gap99 - 18 mmol/L01/18/2022 6:19 AM [facility] LABCalcium, Total8.78.5 - 10.2 mg/dL01/18/2022 6:19 AM [facility] LABEstimated Glomerular Filtration Rate49(L)>=60 mL/min/1.73m 01/18/2022 6:19 AM [facility] LABComment:Estimated Glomerular Filtration Rate (eGFR) is calculated using the 2020 CKD-EPI creatinine equation. This equation utilizes serum creatinine, sex, and age as parameters. The creatinine assay has traceable calibration to isotope dilution- mass spectrometry. Refer to KDIGO guidelines for clinical interpretation. In patients with unstable renal function, e.g. those with acute kidney injury, the eGFRmay not accurately reflect actual GFR.Specimen (Source)Anatomical Location / LateralityCollection Method / VolumeCollection TimeReceived TimeBloodBLOOD SPECIMEN / UnknownVenipuncture / Bwvlfha1101/18/2022 4:25 AM EDT01/18/2022 5:25 AM EDT Narrative Authorizing ProviderResult TypeResult StatusCltia Armando MDLABORATORYFinal ResultPerforming OrganizationAddressCity/State/ZIP CodePhone Number [facility] [address] [facility] [address] [place] [address], * COLONOSCOPY, GI (12/01/2003)ComponentValueRef RangeTest MethodAnalysis Time Performed AtPathologist SignatureTranscriptionDATE: 12/01/2003 ENDOSCOPIST: ??Dung Miles M.D. REFERRING PHYSICIAN: ? PATIENT NAME: CORDELL VILLARREAL DATE: 1940 [facility] NO: [id number] IMPRESSION: 1. ??Renee-ulcerative colitis. ??(Uncoded). RECOMMENDATION: - Follow-up on the results of biopsy specimens. - Prednisone therapy. PERFORMED BY: Performed by Dung Miles MD._ INTRODUCTION 63 year old male patient presents for an elective outpatient colonoscopy. ??The indication for the procedure was inflammatory bowel disease. CONSENT: The benefits, risks, and alternatives to the procedure were discussed and informed consent was obtained from the patient. PREPARATION: Pulse, pulse oximetry and blood pressure monitored. MEDICATIONS: - Versed 2 mg IV - Demerol 50 mg IV - ampicillin 2 gm IV - gentamicin 80 mg IV PROCEDURE: Rectal exam: Normal. The endoscope was passed with ease under direct visualization to the terminal ileum confirmed by appendiceal orifice, cecal strap ([place]'s foot) and ileocecal valve. ??The quality of the preparation was good. FINDINGS: ??There was moderately to severly active colitis throughout the entire colon with changes of erythema, loss of normal vascular pattern, granularity, and scattered small superifical ulcers (Pictures 2-4). ??The terminal ileum was intubated for a short distance and appeared normal. ??Random biopsies were obtained in the right colon, left colon and rectum and sent for routine histopathology and CMV culture. COMPLICATIONS: There were no complications associated with the procedure. [facility] LABSpecimen (Source)Anatomical Location / LateralityCollection Method / VolumeCollection TimeReceived Time12/01/2003 Narrative [facility] - 12/01/2003 8:25 PM EST Ordered by an unspecified provider. Authorizing ProviderResult TypeResult StatusCcf ProviderSCHEDULED PROCEDURES Final ResultPerforming OrganizationAddressCity/State/ZIP CodePhone Number [facility] [address] [place] [address] from Last 3 Months or Most Recently Relevant to Health Maintenance Insurance MemberSubscriberPlan / Payer (Effective 2005-Present)Name:Cordell Villarreal Member ID:[id number] Relation to Subscriber:SelfName:Cordell Villarreal Subscriber ID:[id number] Payer ID:Not on file Group ID:Not on file Type:Medicare Address: [facility] [place] [id number] Care Teams Team MemberRelationshipSpecialtyStart DateEnd Suypaa Bo MD [address] [place] [address] PCP - GeneralFamily Medicine01/16/22
--- OUTSIDE RECORDS SUMMARY | 2025-10-01 17:58 | XMS_ITS | Clinical Summary ---
Author Organization [facility] Address [address] [place] [address] Phone Care Team Providers Care Lumber Loader Name Role Phone Suyapa Bo MD Primary Care Provider [phone] Allergies Active AllergyReactionsCriticalityNoted AexdZxcsxxpuTwryjhrtrqIzcgbrr60/01/2025 Medications MedicationSigDispense QuantityRefillsLast FilledStart DateEnd DateStatus aspirin 81 mg EC tablet Take 1 tablet (81 mg) by mouth once daily.Active warfarin (Coumadin) 6 mg tablet Take 1 tablet (6 mg) by mouth once daily. [place] Coumadin Zlkzan2004/03/2023 Active atorvastatin (Lipitor) 20 mg tablet Take 1 tablet (20 mg) by mouth once daily.Active isosorbide mononitrate ER (Imdur) 30 mg 24 hr tablet Take 1 tablet (30 mg) by mouth once daily.Active montelukast (Singulair) 10 mg tablet Take 1 tablet (10 mg) by mouth once daily.06/02/2024ctive nitroglycerin (Nitrostat) 0.[address] 1 tablet (0.4 mg) under the tongue every 5 minutes if needed for chest pain.5Active donepezil (Aricept) 10 mg tablet Take 1 tablet (10 mg) by mouth once daily at bedtime.06/02/2024ctive Trelegy Ellipta 100-62.5-25 mcg blister with device Inhale 1 puff once daily.08/28/2024ctive tamsulosin (Flomax) 0.4 mg 24 hr capsule Take 1 capsule (0.4 mg) by mouth once daily.5Active amiodarone (Pacerone) 200 mg tablet Indications:ASHD (arteriosclerotic heart disease),Postsurgical percutaneous transluminal coronary angioplasty (PTCA) statusTake 1 tablet (200 mg) by mouth once daily. 400mg daily for x2 weeks then reduce to 200mg daily after 180 tablet /ctive clopidogrel (Plavix) 75 mg tablet Take 1 tablet (75 mg) by mouth. 1 tablet Sunday and SundayActive empagliflozin (Jardiance) 25 mg tablet 1 tablet (25 mg) once daily.5Active ferrous sulfate 325 (65 Fe) mg EC tablet 1 tablet early in the morning..01/28/2025tive pantoprazole (ProtoNix) 40 mg EC tablet 1 tablet (40 mg) early in the morning..5Active terazosin (Hytrin) 2 mg capsule Take 1 capsule (2 mg) by mouth once daily at bedtime.5Active LUTEIN ORAL Take 1 capsule by mouth early in the morning..Active omega 2-nfp-xdq-fish oil (Fish OiL) 1,000 (120-180) mg capsule Take 1 capsule (1,000 mg) by mouth early in the morning..5Active oxygen (O2) gas therapy Inhale 2.5 each continuously.Active calcium carbonate (CALTRATE 600 ORAL) Take 1 tablet by mouth early in the morning..Active metoprolol succinate XL (Toprol-XL) 50 mg 24 hr tablet Indications:Shortness of breathTake 1 tablet (50 mg) by mouth once daily. Do not crush or chew. 90 tablet /ctive cephalexin (Keflex) 500 mg capsule 1 capsule (500 mg) 2 times a day.03/12/2025tive torsemide (Demadex) 20 mg tablet Indications:Localized edemaTake 1 tablet (20 mg) by mouth once daily.04/03/2025 04/03/2026ctive Active Problems ProblemNoted DateDiagnosed DateCongestive heart failure (CHF)07/23/2025RBBB 07/23/2025Localized edema04/03/2025MI 22.0-22.9, adult04/03/2025Pneumonia 02/19/2025Shortness of aqsixw8102/19/2025NSVT (nonsustained ventricular tachycardia)02/19/2025Essential mucerhbaewid28/01/1436Qtrqvxpgmruztl14/01/2025 Never smoked qcgkdxo4901/20/2025SHD (arteriosclerotic heart disease)01/20/2025 Postsurgical percutaneous transluminal coronary angioplasty (PTCA) status 01/20/2025High risk medication use01/20/2025NSTEMI (non-ST elevated myocardial infarction)01/20/2025Hx of aortic valve replacement, /01/2025 Aspiration bnzsyukhz61/01/2025 Resolved Problems ProblemNoted DateDiagnosed DateResolved DateBMI 26.0-26.9,adult02/19/2025 07/23/2025 Encounters DateTypeDepartmentCare VpifBxglbclkxmk45/05/2025Telephone [address] [place] [address] Claire Linares LPN POC/med hold09/08/2025Orders Only [facility] [address] [place] [address] Pablo Mtz MD 08/31/2025Scanned Document [facility] [address] [place] [address] Scanning, Generic Provider 08/31/2025Orders Only [facility] [address] [place] [address] Pablo Mtz MD 08/29/2025Orders Only [facility] [address] [place] [address] Pablo Mtz MD 07/24/2025Telephone [place] [address] [place] [address] Jolanta Sevilla LPN 07/23/2025 10:00 AM EDTOffice Visit [address] [place] [phone] Henry Toure DO ASHD (arteriosclerotic heart disease); NSTEMI (non-ST elevated myocardial infarction) (Multi); Postsurgical percutaneous transluminal coronary angioplasty (PTCA) status; Congestive heart failure, unspecified HF chronicity, unspecified heart failure type (Multi); NSVT (nonsustained ventricular tachycardia) (Multi); High risk medication use; Hx of aortic valve replacement, mechanical; Essential hypertension; RBBB; BMI 22.0-22.9, adult; Never smoked lwszssq2807/23/20253475Fqicog26/30/2025 11:16 AM EDT - 07/21/2025 11:59 PM EDTHospital Encounter [place] [address] [place] [phone] Localized edema; Hx of aortic valve replacement, mechanical Discharge Disposition: Home07/21/2025Travelfrom Last 3 Months Immunizations ImmunizationAdministration DatesNext DueFlu vaccine (IIV4), preservative free *Check age/dose*07/27/2022,07/27/2016Flu vaccine, trivalent, preservative free, HIGH-DOSE, age 65y+ (Fluzone)07/08/2024,07/05/2019,06/09/2018Flu vaccine, trivalent, preservative free, age 6 months and greater (Fluarix/Fluzone/Flulaval)07/04/2015,07/22/2014Influenza, Seasonal, Quadrivalent, Fuvnovgclv80/10/2023,08/23/2021,08/16/2020Influenza, Unspecified 07/05/2017Pneumococcal conjugate vaccine, 13-valent (PREVNAR 13)07/04/2015 Pneumococcal conjugate vaccine, 20-valent (PREVNAR 20)2Pneumococcal polysaccharide vaccine, 23-valent, age 2 years and older (PNEUMOVAX 23) 07/13/2017 Social History Tobacco UseTypesPacks/DayYears UsedDateSmoking Tobacco: NeverSmokeless Tobacco: Never Tobacco Cessation:Counseling Given: Not Answered Alcohol UseStandard Drinks/WeekCommentsNot Currently0 (1 standard drink = 0.6 oz pure alcohol)Sex and Gender InformationValueDate RecordedSex Assigned at Not on fileLegal QxbGoom05/25/2022 9:42 AM ESTGender IdentityNot on fileSexual OrientationNot on file Last Filed Vital Signs Vital SignReadingTime TakenCommentsBlood Nrzkknaw725/6010/11/2024 9:59 AM EDT Dsjcx449307/23/2025 9:59 AM EDTTemperature--Respiratory Rate--Oxygen Saturation-- Inhaled Oxygen Concentration--Xarokv11.5 kg (186 lb 3.2 oz)07/23/2025 9:59 AM OWSNjcwhh972.6 cm (6' 5 )07/23/2025 9:59 AM EDTBody Mass Index22.0807/23/2025 9:59 AM EDT Plan of Treatment DateTypeDepartmentCare Team (Latest Contact Info)Oiwbrxazuvb45/09/2026 11:00 AM ESTOffice Visit [facility] [address] [facility] [address] [place] [address] Garett Panda, CAMP NURSE-AV SPECIALIST [address] [facility] [place] [address] Health MaintenanceDue DateLast DoneCommentsBone Density Scan1Creatinine Level1Lipid Panel1941Medicare Annual Wellness Visit (AWV) 1Potassium Level1941TB Test1941TSH Level1941Vitamin B-120 1941Vitamin W45-XT81 1941Hepatitis B Surface Nzpymnry95/19/1942 Diabetes Lvfsaeegn50/19/1959Zoster Vaccines (1 of 2)1991COVID-19 Vaccine ( season)/07/2025, 08/31/2023, 09/26/2021, Additional history existsCKD: Urine Protein Uxbtwfyrr61/01/100244/10/2024, 07/08/2024 Pkllrelvzylfny39/10/202611/07/2025, 07/21/2025, 01/13/2025, Additional history existsDTaP/Tdap/Td Vaccines (2 - Td or Tdap)5007/01/2025Pneumococcal BtqdexvKpbtdpmkw07/09/2022, 07/13/2017, 07/04/2015Influenza VaccineCompleted 07/01/2025, 07/08/2024, 08/31/2023, Additional history existsRSV High Risk: (Elderly (60+) or Population)Hugeexhif14/10/2025HIB VaccinesAged OutNo longer eligible based on patient's age to complete this topicHPV VaccinesAged OutNo longer eligible based on patient's age to complete this topicHepatitis A VaccinesAged OutNo longer eligible based on patient's age to complete this topic Hepatitis B VaccinesAged OutNo longer eligible based on patient's age to complete this topicIPV VaccinesAged OutNo longer eligible based on patient's age to complete this topicMeningococcal VaccineAged OutNo longer eligible based on patient's age to complete this topicRotavirus VaccinesAged OutNo longer eligible based on patient's age to complete this topic Procedures Procedure NamePriorityDate/TimeAssociated DiagnosisCommentsNON-[facility] HIE POC OVYYCJVKyvtzht02/18/2025 11:31 AM EST NON-[facility] HIE POC JSIWNLDDmqtjgw06/18/2025 10:07 AM EST [place] GI ERCP08/31/2025 7:32 AM EST FEGQONFPTOHQPK46/10/2025 NON-[facility] HIE PT ZLIKqzqggf54/08/2025 1:01 PM EST ECG 12-NSAQNvesazp13/02/2025 10:00 AM EDT NSVT (nonsustained ventricular tachycardia) (Multi) TRANSTHORACIC ECHO (TTE) LOJCLRLGElmwyqm40/30/2025 12:57 PM EDT Localized edema Hx of aortic valve replacement, mechanical from Last 3 Months Results * (ABNORMAL) NON-[facility] HIE POC Glucose (09/08/2025 11:31 AM EST) Only the most recent of2 resultswithin the time period is included. ComponentValueRef RangeTest MethodAnalysis TimePerformed AtPathologist Signature NON-[facility] HIE POC Zhfospr127(H)72 - 100 mg/dLSMARY IMOGENE BASSETT HOSPITALpecimen (Source)Anatomical Location / LateralityCollection Method / VolumeCollection TimeReceived TimeSW Lab- CD:72447/Blood09/08/2025 11:31 AM EST Narrative Authorizing ProviderResult TypeResult Rishi NOGUERA BLOOD ORDERABLESFinal ResultPerforming OrganizationAddressCity/State/ZIP CodePhone Number [facility] [address] [place] [id number], [place] * [place] GI ERCP (08/31/2025 7:32 AM EST)Anatomical RegionLateralityModality Abdominal, BodyRadiographic ImagingSpecimen (Source)Anatomical Location / LateralityCollection Method / VolumeCollection TimeReceived Time08/31/2025 7:32 AM EST Narrative 08/29/2025 3:09 PM EST EXAM DESCRIPTION: XR ERCP 1 HOUR FLUORO CLINICAL HISTORY: ??OTHER REASON COMPARISON: None Technical Details: WHAT SYMPTOMS ARE YOU EXPERIENCING?; BILE LEAK, STENT PLACED; FLUOROSCOPY TIME (MINUTES); 6:36.0; NUMBER OF FLUORO SPOT IMAGES; 10.00; mGy; 121.79 Reference air kerma is 121.79 mGy. FINDINGS: Fluoroscopic spot images were provided for the purposes of documentation of fluoroscopy. They demonstrate retrograde opacification and instrumentation of the biliary system with stent placement and extravasation in the right upper quadrant. Detail is limited. ??Please see the operative note for details. Impression: Documentation of fluoroscopy. Electronically signed by: ??Bonny Dela Cruz MD ??08/31/2025 07:30 AM EST Technologist: ??LEBRON Dictated By: ?? BONNY DELA CRUZ MD Signed By: ? BONNY DELA CRUZ MD Signed Out: ?08/31/25 07:30:09 Authorizing ProviderResult TypeResult StatusNewton P Muthunayagam MDIMG FLUOROSCOPY PROCEDURESFinal Result * Echocardiogram (08/31/2025) Narrative 08/31/2025 Ordered by an unspecified provider. Authorizing ProviderResult TypeResult StatusGeneric Provider ScanningCV ECHO PROCEDURESFinal Result * (ABNORMAL) NON-[facility] HIE PT INR (08/29/2025 1:01 PM EST)ComponentValueRef Range Test MethodAnalysis TimePerformed AtPathologist SignatureNON-[facility] HIE INR1.4 [facility]Comment: INR Reference Range: Normal reference range for INR on patients not on anticoagulant therapy: 0.9-1.1 General therapeutic range for patients on anticoagulant therapy: 2.0-3.5 NON-[facility] HIE Protime Ajcihyy79.4(H)9.8 - 12.4 secondsFOOTHILLS HOSPITAL Specimen (Source)Anatomical Location / LateralityCollection Method / Volume Collection TimeReceived TimeSW Lab- CD:44134/Blood08/29/2025 1:01 PM EST Narrative Authorizing ProviderResult TypeResult StatusPablo NOGUERA BLOOD ORDERABLESFinal ResultPerforming OrganizationAddressCity/State/ZIP CodePhone Number [facility] [address] [place] [address], * ECG 12 Lead (07/23/2025 10:00 AM EDT)Specimen (Source)Anatomical Location / LateralityCollection Method / VolumeCollection TimeReceived Time Narrative CPACS - 07/23/2025 11:06 AM EDT Normal sinus rhythm, right bundle branch block, abnormal ECG Authorizing ProviderResult TypeResult StatusHenry DUMONT ORDERABLES Final ResultPerforming OrganizationAddressCity/State/ZIP CodePhone Number [facility] * TRANSTHORACIC ECHO (TTE) COMPLETE (07/21/2025 12:57 PM EDT)ComponentValueRef RangeTest MethodAnalysis TimePerformed AtPathologist SignatureAV mn wmgl3uvFt SYNGOAV pk vel1.23m/sSYNGOLV Biplane EF48%SYNGOLVOT diam2.22cmSYNGOTricuspid annular plane systolic excursion1.8cmSYNGOLA vol index A/L57.8ml/q6NLTYSVP EF 45%SYNGORV free wall pk S'7.45cm/pDBLXJWRIH41ghCoNXQGIRRMSc5.07cmSYNGOAortic Valve Area by Continuity of Peak Velocity2.91jl8NKEGJDC pk ggoe1nrTdBMVMP Aortic Valve Area by Continuity of VTI2.53bl7XGECATS A4C EF45.5SYNGOSpecimen (Source)Anatomical Location / LateralityCollection Method / VolumeCollection TimeReceived Time07/21/2025 11:52 AM EDT Impressions SYNGO - 07/23/2025 6:45 PM EDT CONCLUSIONS: 1. Left ventricular ejection fraction is mildly decreased by visual estimate at 45%. 2. Spectral Doppler shows a a Grade III (restrictive pattern) of left ventricular diastolic fillingwith an elevated left atrial pressure. 3. Moderate concentric left ventricle hypertrophy with severe inferior wall hypokinesis and septal motion suggestive of conduction abnormality. 4. There is moderately reduced right ventricular systolic function. 5. Moderate mitral valve regurgitation. 6. Moderate tricuspid regurgitation. 7. The Doppler estimated RVSP is mildly elevated at 46 mmHg. 8. Jean-Paul Shiley mechanical valve in the aortic position with normal function. 9. The inferior vena cava appears moderately dilated, IVC inspiratory collapse is not well visualized. Narrative [facility] - 07/23/2025 6:45 PM EDT ?[address], [address] [facility], [place] [address] ? TRANSTHORACIC ECHOCARDIOGRAM REPORT Patient Name: ? CORDELL DAVIS ?Reading Physician: ?[id number] Claudio ?Aguilar, [facility] Study Date: ? 07/21/2025 ? Ordering Provider: ?[id number] GARETT K ?PANDA MRN/PID: ?[id number] ?Fellow: Accession#: ? [id number] ?Nurse: Date of /Age: ??1940 / 85 ?Ballistic Technician: ?Brenna Golden [facility] ?years Gender Assigned at ??M ? Additional Staff: : Height: ? 195.58 cm ? Admit Date: Weight: ? 90.72 kg ?Admission Status: ? Outpatient BSA / BMI: ?2.24 m2 / 23.72 ? Department Location: ??[facility] ?kg/m2 ? [place] Blood Pressure: 110 /58 mmHg Study Type: ?TRANSTHORACIC ECHO (TTE) COMPLETE Diagnosis/ICD: Localized edema-R60.0; Presence of prosthetic heart valve-Z95.2 Indication: ?Non-sustained V-tach, CKD, CAD, HTN, Edema, Murmur, PTCA, [place], ? Aortic aneurysm repair CPT Codes: ? Echo Complete w Full Doppler-[id number] Study Detail: The following Echo studies were performed: 2D, M-Mode, color flow ?and Doppler. PHYSICIAN INTERPRETATION: Left Ventricle: Left ventricular ejection fraction is mildly decreased by visual estimate at 45%. The left ventricular cavity size is normal. There is left ventricular concentric remodeling. SpectralDoppler shows a Grade III (restrictive pattern) of left ventricular diastolic filling with an elevated left atrial pressure. Moderate concentric left ventricle hypertrophy with severe inferior wall hypokinesis and septal motion suggestive of conduction abnormality. Left Atrium: The left atrium is upper limits of normal in size. Right Ventricle: The right ventricle is normal in size. There is moderately reduced right ventricular systolic function. Right Atrium: The right atrial size is upper limits of normal. Aortic Valve: The aortic valve appears abnormal. The aortic valve area by VTI is 2.54 cm? with apeak velocity of 1.23 m/s. The peak and mean gradients are 4 mmHg and 3 mmHg, respectively, with a dimensionless index of 0.66. There is no evidence of aortic valve regurgitation. Jean-Paul Shiley mechanical valve in the aortic position with normal function. Mitral Valve: The mitral valve is mildly thickened. The doppler estimated peak and mean diastolic gradients are 10 mmHg and 4 mmHg, respectively. There is moderate mitral valve regurgitation. The E Vmax is 1.43 m/s. Tricuspid Valve: The tricuspid valve is structurally normal. There is moderate tricuspid regurgitation. The Doppler estimated right ventricular systolic pressure (RVSP) is mildly elevated at 46 mmHg. Pulmonic Valve: The pulmonic valve is not well visualized. There is no indication of pulmonic valveregurgitation. Pericardium: No pericardial effusion noted. Aorta: The aortic root is abnormal. There is mild dilatation of the ascending aorta. Systemic Veins: The inferior vena cava appears moderately dilated, IVC inspiratory collapse is not well visualized. CONCLUSIONS: 1. Left ventricular ejection fraction is mildly decreased by visual estimate at 45%. 2. Spectral Doppler shows a a Grade III (restrictive pattern) of left ventricular diastolic fillingwith an elevated left atrial pressure. 3. Moderate concentric left ventricle hypertrophy with severe inferior wall hypokinesis and septal motion suggestive of conduction abnormality. 4. There is moderately reduced right ventricular systolic function. 5. Moderate mitral valve regurgitation. 6. Moderate tricuspid regurgitation. 7. The Doppler estimated RVSP is mildly elevated at 46 mmHg. 8. Jean-Paul Shiley mechanical valve in the aortic position with normal function. 9. The inferior vena cava appears moderately dilated, IVC inspiratory collapse is not well visualized. QUANTITATIVE DATA SUMMARY: 2D MEASUREMENTS: ? Normal Ranges: Ao Root d: ? 4.00 cm ? (2.0-3.7cm) LAs: ? 4.03 cm ? (2.7-4.0cm) RVIDd: ? 4.81 cm ? (0.9-3.6cm) IVSd: ?1.36 cm ? (0.6-1.1cm) LVPWd: ? 1.10 cm ? (0.6-1.1cm) LVIDd: ? 5.07 cm ? (3.9-5.9cm) LVIDs: ? 4.07 cm LV Mass Index: ?? 110.8 g/m2 LVEDV Index: ? 66.22 ml/m2 LV % FS ?19.8 % LEFT ATRIUM: ? Normal Ranges: LA Vol A4C: ? 128.6 ml ?? (22+/-6mL/m2) LA Vol A2C: ? 115.9 ml LA Vol BP: ?129.2 ml LA Vol Index A4C: 57.5ml/m2 LA Vol Index A2C: 51.8 ml/m2 LA Vol Index BP: ??57.8 ml/m2 LA Vol A4C: ? 115.3 ml LA Vol A2C: ? 109.3 ml LA Vol Index BSA: 50.2 ml/m2 AORTA MEASUREMENTS: ? Normal Ranges: Asc Ao, d: ?3.80 cm (2.1-3.4cm) LV SYSTOLIC FUNCTION: ? Normal Ranges: EF-A4C View: 45 % (>=55%) EF-A2C View: ?46 % EF-Biplane: ? 48 % EF-Visual: ?45 % LV EF Reported: 45 % LV DIASTOLIC FUNCTION: ? Normal Ranges: MV Peak E: ? 1.43 m/s ??(0.7-1.2 m/s) MV e' 0.081 m/s (>8.0) MV lateral e' ?0.10 m/s MV medial e' ? 0.06 m/s E/e' Ratio: 17.65 (<8.0) MITRAL VALVE: ? Normal Ranges: MV Vmax: 1.58 m/s (<=1.3m/s) MV peak P.0 mmHg (<5mmHg) MV mean P.5 mmHg (<48mmHg) MV VTI: ? 25.14 cm ??(10-13cm) MV DT: ?207 msec ??(150-240msec) MITRAL INSUFFICIENCY: ? Normal Ranges: MR VTI: ? 152.77 cm MR Vmax: ?502.45 cm/s dP/dt: 555 mmHg/s (>1200mmHg/sec) AORTIC VALVE: ? Normal Ranges: AoV Vmax: 1.23 m/s (<=1.7m/s) AoV Peak P.1 mmHg (<20mmHg) AoV Mean PG: ? 3.2 mmHg (1.7-11.5mmHg) LVOT Max Ch[place]: 0.80 m/s (<=1.1m/s) AoV VTI: ? 21.28 cm (18-25cm) LVOT VTI: ?13.98 cm LVOT Diameter: ? 2.22 cm ??(1.8-2.4cm) AoV Area, VTI: ? 2.54 cm2 (2.5-5.5cm2) AoV Area,Vmax: ? 2.50 cm2 (2.5-4.5cm2) AoV Dimensionless Index: 0.66 RIGHT VENTRICLE: RV Basal 4.01 cm RV Mid ?? 3.00 cm RV Major 9.0 cm TAPSE: ?? 17.7 mm RV s' ?0.07 m/s TRICUSPID VALVE/RVSP: ?Normal Ranges: Peak TR Velocity: ? 3.27 m/s Est. RA Pressure: ? 3 mmHg RV Syst Pressure: 46 mmHg (< 30mmHg) IVC Diam: ? 3.03 cm PULMONIC VALVE: ?Normal Ranges: RVOT Vmax: ?0.51 m/s (0.6-0.9m/s) AR Vmax: ?2.24 m/s AORTA: Asc Ao Diam 3.85 cm [id number] Claudio Gar MD, [facility] Electronically signed on 07/23/2025 at 6:45:48 PM Final Procedure Note Claudio Gar MD - 07/23/[address], [address], [place] [address] TRANSTHORACIC ECHOCARDIOGRAM REPORT Patient Name: CORDELL Zhao Physician: [id number] Gar MD,FACC Study Date: 07/21/2025 Ordering Provider: [id number] TAYLOR PANDA MRN/PID: [id number] Fellow: Nurse: Date of /Age: 5 1940 Ballistic Technician: Brenna olmstead Gender Assigned at M Additional Staff: : Height: 195.58 cm Admit Date: Weight: 90.72 kg Admission Status: Outpatient BSA / BMI: 2.24 m2 / 23.72 [facility] [place] Blood Pressure: 110 /58 mmHg Study Type: TRANSTHORACIC ECHO (TTE) COMPLETE Diagnosis/ICD: Localized edema-R60.0; Presence of prosthetic heartvalve-Z95.2 Indication: Non-sustained V-tach, CKD, CAD, HTN, Edema, Murmur, PTCA,[place], Aortic aneurysm repair CPT Codes: Echo Complete w Full Doppler-[id number] Study Detail: The following Echo studies were performed: 2D, M-Mode,color flow and Doppler. PHYSICIAN INTERPRETATION: Left Ventricle: Left ventricular ejection fraction is mildly decreased byvisual estimate at 45%. The left ventricular cavity size is normal. Thereis left ventricular concentric remodeling. Spectral Doppler shows a GradeIII (restrictive pattern) of left ventricular diastolic filling with anelevated left atrial pressure. Moderate concentric left ventriclehypertrophy with severe inferior wall hypokinesis and septal motionsuggestive of conduction abnormality. Left Atrium: The left atrium is upper limits of normal in size. Right Ventricle: The right ventricle is normal in size. There ismoderately reduced right ventricular systolic function. Right Atrium: The right atrial size is upper limits of normal. Aortic Valve: The aortic valve appears abnormal. The aortic valve area byVTI is 2.54 cm? with a peak velocity of 1.23 m/s. The peak and meangradients are 4 mmHg and 3 mmHg, respectively, with a dimensionless indexof 0.66. There is no evidence of aortic valve regurgitation. Jean-Paul Shileymechanical valve in the aortic position with normal function. Mitral Valve: The mitral valve is mildly thickened. The doppler estimatedpeak and mean diastolic gradients are 10 mmHg and 4 mmHg, respectively.There is moderate mitral valve regurgitation. The E Vmax is 1.43 m/s. Tricuspid Valve: The tricuspid valve is structurally normal. There ismoderate tricuspid regurgitation. The Doppler estimated right ventricularsystolic pressure (RVSP) is mildly elevated at 46 mmHg. Pulmonic Valve: The pulmonic valve is not well visualized. There is noindication of pulmonic valve regurgitation. Pericardium: No pericardial effusion noted. Aorta: The aortic root is abnormal. There is mild dilatation of theascending aorta. Systemic Veins: The inferior vena cava appears moderately dilated, IVC inspiratory collapse is not well visualized. CONCLUSIONS: 1. Left ventricular ejection fraction is mildly decreased by visualestimate at 45%. 2. Spectral Doppler shows a a Grade III (restrictive pattern) of leftventricular diastolic filling with an elevated left atrial pressure. 3. Moderate concentric left ventricle hypertrophy with severe inferiorwall hypokinesis and septal motion suggestive of conduction abnormality. 4. There is moderately reduced right ventricular systolic function. 5. Moderate mitral valve regurgitation. 6. Moderate tricuspid regurgitation. 7. The Doppler estimated RVSP is mildly elevated at 46 mmHg. 8. Ejan-Paul Shiley mechanical valve in the aortic position with normalfunction. 9. The inferior vena cava appears moderately dilated, IVC inspiratorycollapse is not well visualized. QUANTITATIVE DATA SUMMARY: 2D MEASUREMENTS: Normal Ranges: Ao Root d: 4.00 cm (2.0-3.7cm) LAs: 4.03 cm (2.7-4.0cm) RVIDd: 4.81 cm (0.9-3.6cm) IVSd: 1.36 cm (0.6-1.1cm) LVPWd: 1.10 cm (0.6-1.1cm) LVIDd: 5.07 cm (3.9-5.9cm) LVIDs: 4.07 cm LV Mass Index: 110.8 g/m2 LVEDV Index: 66.22 ml/m2 LV % FS 19.8 % LEFT ATRIUM: Normal Ranges: LA Vol A4C: 128.6 ml (22+/-6mL/m2) LA Vol A2C: 115.9 ml LA Vol BP: 129.2 ml LA Vol Index A4C: 57.5ml/m2 LA Vol Index A2C: 51.8 ml/m2 LA Vol Index BP: 57.8 ml/m2 LA Vol A4C: 115.3 ml LA Vol A2C: 109.3 ml LA Vol Index BSA: 50.2 ml/m2 AORTA MEASUREMENTS: Normal Ranges: Asc Ao, d: 3.80 cm (2.1-3.4cm) LV SYSTOLIC FUNCTION: Normal Ranges: EF-A4C View: 45 % (>=55%) EF-A2C View: 46 % EF-Biplane: 48 % EF-Visual: 45 % LV EF Reported: 45 % LV DIASTOLIC FUNCTION: Normal Ranges: MV Peak E: 1.43 m/s (0.7-1.2 m/s) MV e' 0.081 m/s (>8.0) MV lateral e' 0.10 m/s MV medial e' 0.06 m/s E/e' Ratio: 17.65 (<8.0) MITRAL VALVE: Normal Ranges: MV Vmax: 1.58 m/s (<=1.3m/s) MV peak P.0 mmHg (<5mmHg) MV mean P.5 mmHg (<48mmHg) MV VTI: 25.14 cm (10-13cm) MV DT: 207 msec (150-240msec) MITRAL INSUFFICIENCY: Normal Ranges: MR VTI: 152.77 cm MR Vmax: 502.45 cm/s dP/dt: 555 mmHg/s (>1200mmHg/sec) AORTIC VALVE: Normal Ranges: AoV Vmax: 1.23 m/s (<=1.7m/s) AoV Peak P.1 mmHg (<20mmHg) AoV Mean P.2 mmHg (1.7-11.5mmHg) LVOT Max Cholo: 0.80 m/s (<=1.1m/s) AoV VTI: 21.28 cm (18-25cm) LVOT VTI: 13.98 cm LVOT Diameter: 2.22 cm (1.8-2.4cm) AoV Area, VTI: 2.54 cm2 (2.5-5.5cm2) AoV Area,Vmax: 2.50 cm2 (2.5-4.5cm2) AoV Dimensionless Index: 0.66 RIGHT VENTRICLE: RV Basal 4.01 cm RV Mid 3.00 cm RV Major 9.0 cm TAPSE: 17.7 mm RV s' 0.07 m/s TRICUSPID VALVE/RVSP: Normal Ranges: Peak TR Velocity: 3.27 m/s Est. RA Pressure: 3 mmHg RV Syst Pressure: 46 mmHg (< 30mmHg) IVC Diam: 3.03 cm PULMONIC VALVE: Normal Ranges: RVOT Vmax: 0.51 m/s (0.6-0.9m/s) AR Vmax: 2.24 m/s AORTA: Asc Ao Diam 3.85 cm [id number] Claudio Gar MD, [facility] Electronically signed on 07/23/2025 at 6:45:48 PM Final IMPRESSION: CONCLUSIONS: 1. Left ventricular ejection fraction is mildly decreased by visualestimate at 45%. 2. Spectral Doppler shows a a Grade III (restrictive pattern) of leftventricular diastolic filling with an elevated left atrial pressure. 3. Moderate concentric left ventricle hypertrophy with severe inferiorwall hypokinesis and septal motion suggestive of conduction abnormality. 4. There is moderately reduced right ventricular systolic function. 5. Moderate mitral valve regurgitation. 6. Moderate tricuspid regurgitation. 7. The Doppler estimated RVSP is mildly elevated at 46 mmHg. 8. Jean-Paul Shiley mechanical valve in the aortic position with normalfunction. 9. The inferior vena cava appears moderately dilated, IVC inspiratorycollapse is not well visualized. Authorizing ProviderResult TypeResult StatusGarett Panda CAMP NURSE-CNPCV ECHO PROCEDURESFinal ResultPerforming OrganizationAddressCity/State/ZIP CodePhone Number SYNGO from Last 3 Months Insurance Care Teams Team MemberRelationshipSpecialtyStart DateEnd Date Suyapa Bo MD [address] [place] [address] [facility]
--- OUTSIDE RECORDS SUMMARY | 2025-10-01 17:58 | XMS_ITS | Continuity of Care Document ---
Author Organization [facility] Address [address] [place] [address] Phone Care Team Providers Care E/M Engineer Name Role Phone Suyapa Bo MD [...] Vanessa Hackett MD Other Provider Ghazala Li [facility]- Other Provider Tara Boston Other Provider Richard Montemayor MD Attending Provider Prince Black MD Other Provider Jenny Barboza MD Other Provider Hoang Paredes MD Other Provider Maria Antonia Valencia APRN Other Provider Terrence Duke MD Other Provider Griffin Stephens DO Other Provider [phone] Marva Niru M MANAGER SHAREPOINT Other Provider Hoang Llanos DO Other Provider Em Pulido DO Other Provider Hoang Llanos DO Other Provider Tyson Low DO Other Provider Riccardo Sandoval MD Attending Provider Riccardo Sandoval MD Other Provider Norris Cartagena DO Other Provider Griffin Stephens DO Attending Provider Tara Boston Attending Provider [phone] Brian Johnston DO Other Provider Hoang Paredes MD Admit Provider Yakelin Tenorio RN Other Provider Unavailable Korin Bazan RN Other Provider Unavailable Beryl Wright RN Other Provider Unavailable Aure Rehman RN Other Provider Unavailable Latanya Puentes RN Other Provider Unavailable Angélica Paredes RN Other Provider Unavailable Rosie Storm MD Other Provider [phone] Serge Rutherford DO Other Provider Arnulfo Stone MD Other Provider Albert Ortiz MD Other Provider [phone] Riccardo Rodrigez DO Other Provider Unavailab Omar Land MD Other Provider Unavailable Dilcia Zarco MANAGER [employer]AREPOINT Other Provider [phone] Blayne Hinkle MD Other Provider Vivian Gill MD Other Provider Unavailable Tapan Decker MD Other Provider Riccardo Rosales DO Other Provider Rajinder Clark MD Other Provider Lg Grace MD Other Provider Milana Marcus MACHINE SET UP-C Other Provider Lukasz Velez MANAGER [employer]AREPOINT Other Provider Unavailable Shawn Dao MD Other Provider Dane Bray MD Other Provider Austin Angeles MD Other Provider Unavailable Angel Luis Carrion DO Other Provider Jaqueline Britton MANAGER [employer]AREPOINT Other Provider [phone] Madeline Burgess MD Other Provider Leslie Panda MANAGER [employer]AREPOINT Other Provider [phone] Anita Cox MANAGER [employer]AREPOINT Other Provider [phone] Rickey Aj MD Other Provider Unavailable Shivam Gonzalez MD Other Provider Tammie Mcfarlanealyssa DO Other Provider Rod Rosas MD Other Provider Addison Tucker MD Other Provider Yanelis Gonzalez MANAGER [employer]AREPOINT Other Provider Unavailable Niki Mays MD Other Provider Hoang Colon MD Other Provider [phone] Omar Tapia MD Other Provider Bashir Ace MD Other Provider Sofiya Fang MANAGER [employer]POINT Other Provider Faraz Delgado MANAGER [employer]AREPOINT Other Provider Lou Moore MD Other Provider Jenna Monroy RN Other Provider Unavailable LigiaVanic DO Other Provider Uziel Gee DO Other Provider Paul Dang MD Other Provider Linnea Blair MACHINE SET UP-C Other Provider Unavailable Jacinto Bah MD Other Provider Maria Antonia Valencia APRN Attending Provider Care Teams Patient Care Team [...] Active Sta rt: August 18, 2025 [facility]-Chalino[facility]carolyn ProviderActiveStart: August 18, 2025 Manuel Renit ProviderActiveStart: August 18, 2025 Courtney Cleaning MDOther ProviderActiveStart: August 18, 2025 Dieudonne Maldonado MDOther ProviderActiveStart: August 18, 2025 Christa Wooten RNOther ProviderActiveStart: August 18, 2025 Christa Wooten RNOther ProviderActiveStart: August 18, 2025 Radha Toure DOOther ProviderActiveStart: August 18, 2025 Claudio Gar MDOther ProviderActiveStart: August 18, 2025 Hermann Luna MDOther ProviderActiveStart: August 18, 2025 Eddi Wardher ProviderActiveStart: August 18, 2025 Vanessa Hackett MDOther ProviderActiveStart: August 18, 2025 Ghazala Li , TENNIS PLAYER-BCOther ProviderActiveStart: August 18, 2025 Pantera Boston MDOther ProviderActiveStart: August 18, 2025 Richard Montemayor , MDAttending ProviderActiveStart: August 18, 2025 Riccardo Sandoval MDOther ProviderActiveStart: August 18, 2025 End: September 09, 2025Brian Johnston , DOAttending ProviderActiveStart: August 18, 2025 End: September 09, 2025 Visit Care Team Team Status: Active Member Role/Relationship Status Dates Suyapa Bo MD Primary Care Provider Active Sta rt: August 25, 2025 [facility]-CEmergency ProviderActiveStart: August 25, 2025 Courtney Cleaning , MDAdmit ProviderActiveStart: August 25, 2025 Dieudonne Maldonado MDOther ProviderActiveStart: August 25, 2025 Pantera Boston MDOther ProviderActiveStart: August 25, 2025 Prince Black MDOther ProviderActiveStart: August 25, 2025 Jenny Barboza MDOther ProviderActiveStart: August 25, 2025 Hoang Paredes MDOther ProviderActiveStart: August 25, 2025 Maria Antonia Valencia , APRNOther ProviderActiveStart: August 25, 2025 Terrence Duke MDOther ProviderActiveStart: August 25, 2025 Griffin Stephens DOOther ProviderActiveStart: August 25, 2025 Niru Durham APRNOther ProviderActiveStart: August 25, 2025 Hoang Llanos , DOOther ProviderActiveStart: August 25, 2025 Em Pulido , DOOther ProviderActiveStart: August 25, 2025 Hoang Llanos , FELLOWOther ProviderActiveStart: August 25, 2025 Tyson Low DO FELLOWOther ProviderActiveStart: August 25, 2025 Jona Winnending ProviderActiveStart: August 25, 2025 Riccardo Sandoval MDOther ProviderActiveStart: August 25, 2025 Norris Cartagena DOOther ProviderActiveStart: August 25, 2025 Griffin Stephens DOAttending ProviderActiveStart: August 25, 2025 Griffin Stephens DOOther ProviderActiveStart: August 25, 2025 Niru Durham , APRNOther ProviderActiveStart: August 25, 2025 Hoang Llanos , DOOther ProviderActiveStart: August 25, 2025 Em Puildo , DOOther ProviderActiveStart: August 25, 2025 Hoang [...] MDOther ProviderActiveStart: September 01, 2025 Griffin Stephens DOAttending ProviderActiveStart: September 01, 2025 Griffin Stephens DOOther ProviderActiveStart: September 01, 2025 Niru Durham , APRNOther ProviderActiveStart: September 01, 2025 Hoang Llanos , DOOther ProviderActiveStart: September 01, 2025 Em Pulido , DOOther ProviderActiveStart: September 01, 2025 Hoang Llanos , DO FELLOWOther ProviderActiveStart: September 01, 2025 Tyson Low , DO FELLOWOther ProviderActiveStart: September 01, 2025 Riccardo Sandoval MDOther ProviderActiveStart: September 01, 2025 Norris Cartagena , Other ProviderActiveStart: September 01, 2025 Visit Care Team Team Status: Active Member Role/Relationship Status Dates Suyapa Bo MD Primary Care Provider Active Sta rt: September 08, 2025 Desire Alberts ProviderActiveStart: September 08, 2025 Courtney Semaskiene , MDAdmit ProviderActiveStart: September 08, 2025 Dieudonne Maldonado [...] ProviderActiveStart: September 08, 2025 Hoang Llanos , DOOther ProviderActiveStart: September 08, 2025 Em Pulido DOOther ProviderActiveStart: September 08, 2025 Hoang Llanos , DO FELLOWOther ProviderActiveStart: September 08, 2025 Tyson Low [...] MDOther ProviderActiveStart: September 09, 2025 Yakelin Tenorio RNOther ProviderActiveStart: September 09, 2025 Korin Bazan , SANCHEZOther ProviderActiveStart: September 09, 2025 Beryl Wright , SANCHEZOther ProviderActiveStart: September 09, 2025 Aure Rehman , SANCHEZOther ProviderActiveStart: September 09, 2025 Latanya Puentes RNOther ProviderActiveStart: September 09, 2025 Angélica Paredes RNOther ProviderActiveStart: September 09, 2025 Rosie Storm MDOther ProviderActiveStart: September 09, 2025 Ronobir Krish , DOOther ProviderActiveStart: September 09, 2025 Arnulfo [...] ProviderActiveStart: September 09, 2025 Milana Marcus , MACHINE SET UP-COther ProviderActiveStart: September 09, 2025 Lukasz Velez , [...] Provider Active Sta rt: September 16, 2025 Manuel Arrietait ProviderActiveStart: September 16, 2025 Hoang Paredes MDOther ProviderActiveStart: September 16, 2025 Yakelin Tenorio RNOther ProviderActiveStart: September 16, 2025 Korin Bazan , SANCHEZOther ProviderActiveStart: September 16, 2025 Beryl Wright , SANCHEZOther ProviderActiveStart: September 16, 2025 Aure Rehman , SANCHEZOther ProviderActiveStart: September 16, 2025 Latanya Puentes , SANCHEZOther ProviderActiveStart: September 16, 2025 Angélica Paredes , SANCHEZOther ProviderActiveStart: September 16, 2025 Rosie Storm MDOther ProviderActiveStart: September 16, 2025 Segre Rutherford , DOOther ProviderActiveStart: September 16, 2025 Arnulfo Stone MDOther ProviderActiveStart: September 16, 2025 Norris Cartagena DOOther ProviderActiveStart: September 16, 2025 Albert Ortiz [...] ProviderActiveStart: September 16, 2025 Milana Marcus , MACHINE SET UP-COther ProviderActiveStart: September 16, 2025 Lukasz Velez , [...] MDOther ProviderActiveStart: September 16, 2025 Yanelis Gonzalez , APRNOther ProviderActiveStart: September 16, 2025 Niki Mays MDOther ProviderActiveStart: September 16, 2025 Hoang Colon MDOther ProviderActiveStart: September 16, 2025 Omar Tapia MDOther ProviderActiveStart: September 16, 2025 Bashir Ace MDOther ProviderActiveStart: September 16, 2025 Sofiya Fang APRNOther ProviderActiveStart: September 16, 2025 Faraz Delgado APRNOther ProviderActiveStart: September 16, 2025 Lou Moore MDOther ProviderActiveStart: September 16, 2025 Jenna Monroy RNOther ProviderActiveStart: September 16, 2025 Jagdish Strong [...] ProviderActiveStart: September 16, 2025 Linnea Blair , MACHINE SET UP-COther ProviderActiveStart: September 16, 2025 Pantera Boston MDOther ProviderActiveStart: September 16, 2025 Jacinto Bah MDOther ProviderActiveStart: September 16, 2025 Maria Antonia Valencia , APRNAttending ProviderActiveStart: September 16, 2025 Chief Complaint and Reason for Visit Chief Complaint Admit Date CEA: 4 mo f/u COPD, Pulm Nodules Septemb er 2024 2:16pm Vomiting, abd pain August 18, 2025 6 :31pm Vomiting, abd pain August 25, 2025 1 2:00am Vomiting, abd pain September 01, 2025 12:00am Vomiting, abd pain September 08, 2025 12:00am gangrenous cholecystits s/p cholecysecto my September 09, 2025 12:12pm gangrenous cholecystits s/p cholecysecto my September 16, 2025 12:00am Reason for Visit Admit Date [...] 6 :31pm Bile leak, postoperative August 18, 025 6:31pm Candidemia August 18, 2025 6 [...] Severe protein-calorie malnutrition Octo claire 2024 6:31pm Debility September 09, 2025 12:12pm Ileostomy in place September 09, 2025 12:12pm Neurogenic bladder September 09, 2025 12:12pm Pressure injury of deep tissue of left h eel September 09, 2025 12:12pm Pressure ulcer of left buttock, stage 3 September 09, 2025 12:12pm Stage I pressure ulcer of right heel Nov ember 2024 12:12pm Acute gangrenous cholecystitis September 09, [...] 09, 2025 12:12pm Severe protein-calorie malnutrition Hari cobian 2024 12:12pm Reason for Referral Type Reason(s) Provider Provider Contact Information Freya tavera Address Start Date Please schedule when discharged from Rehab.To follow at Rehab.Call to schedule follow up appointment with PCP after dischargeFollow up with rehab physician as neededPlease schedule when discharged from Rehab.[facility] Coumadin ClinicWork Phone: [phone] [facility] [address]Zp follow at Rehab.Dieudonne Tapia MDWork Phone: [phone] [address] [address]AchmvcutbjaPrince Black MDWork Phone: [phone] [address] [address]DfeslAnastasiya Panda APRNWork Phone: [phone] [address] [address]LXMF Coumadin ClinicWork Phone: [phone] [facility] [address]RaqojdDieudonne Tapia MDWork Phone: [phone] [address] [address]HmntbcatxufPrince Black MDWork Phone: [phone] [address] [place] [address]HodrrAnastasiya Panda APRNWork Phone: [phone] [facility] [address] [place] [address]Tdor to schedule follow up appointment with PCP after discharge Suyapa Bo MDWork Phone: [phone] [address] [place] [address]Jouikt up with rehab physician as neededHoang Paredes MDWork Phone: [phone] [facility], [address] [place] [address] Allergies, Adverse Reactions, Alerts Allergen Type Severity Reaction Last Updated Verified Status Muczgnj-XRA-KnK Reductase Inhibitor Allergy Unknown Joint Pain July 9:59am Yes Active Social History Smoking Status Status Start Date End Date Date of Observa tion Never smoked tobacco (finding) September 14, 2025 4:28pm Observation Status Observation Response Date of Response Legal Sex Male (finding) [facility] 1939 Social History Assessments Assessment Value Date Recorded SDOH Follow up September 09, 2025 12:16pmQuestionAnswerDate RecordedHas the SDOH screening changed since [facility] 12:16pm Assessment Value Date Recorded SDOH Follow up September 07, 2025 2:59pmQuestionAnswerDate RecordedHas the SDOH screening changed since admission?NNoveer 2024 2:59pm Assessment Value Date Recorded SDOH Follow up August 21, 2025 3:55pmQuestionAnswerDate RecordedHas the SDOH screening changed since admission?NOctober 2024 3:55pm Family History Relationship Condition Age at Onset Recorded Date/T torri Not Specified Myocardial infarction Unknown Disorder of thyroidUnknownfatherHeart diseaseUnknownDeceasedUnknownmother DeceasedUnknownMalignant neoplasmUnknownsisterDeceasedUnknown Problems Active Problems Problem Diagnosis/Recorded Date Onset Date Status C omments Stage I pressure ulcer of ri ght heel September 09, 2025 2:37pm Unknown Active Pressure ulcer of left buttock, stage 3September 08, 2025 3:01pmUnknownActive Pressure injury of deep tissue of left heelSeptember 09, 2025 2:37pmUnknown ActiveIleostomy in placeOctober 2018 4:81fgJzmpfswHxrivg8579Jlbi cancer August 06, 2019 11:11amUnknownActiveNeurogenic bladderNovember 2024 2:34pmUnknownActiveArthritisOctober 2018 11:10amUnknownActive HyperlipidemiaOctober 2018 11:08amUnknownActiveNasal polypsJune 2023 1:02pmUnknownActiveCramps of lower extremityJune 2024 7:07amUnknownActive Pulmonary nodulesJune 2023 11:47amUnknownActiveDebilityNovember 2024 2:33pmUnknownActivePneumoniaOctober [...] 3:18pmUnknown ResolvedImpaired mobility and activities of daily livingNovbanner desert medical center 2024 2:55pmUnknownResolvedHistory of non-ST elevation myocardial infarction (NSTEMI) August 19, 2025 1:58pmUnknownResolvedHistory of mechanical aortic valve replacementMar 2024 2:32pmUnknownResolvedSevere protein-calorie malnutritionNovember 2024 11:21amUnknownResolvedAmbulatory dysfunction September 07, 2025 11:21amUnknownResolvedHistory of heart artery stentMarch 2024 12:30pmUnknownResolvedCKD (chronic kidney disease), stage IIIMarch 2024 4:27pmUnknownResolved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November 2024 9:13amUnknownResolvedAlzheimers diseaseJune 2024 7:07amUnknown ResolvedAnemiaNovember 2024 11:21amUnknownResolvedAnticoagulant long-term useOctober 2018 7:25amUnknownResolvedProblem List clean-up per request of Phys. EHR CmteHypertensive chronic kidney disease with stage 1 through stage 4 chronic kidney disease, or unspecified chronic kidney diseaseNovember 2024 9:17amUnknownResolvedHyponatremiaNovember 2024 2:03pmUnknownResolved LeukocytosisNovember 2024 9:13amUnknownResolvedCandidemiaNovember 2024 2:55pmUnknownResolvedHAP (hospital-acquired pneumonia)January 03, 2025 11:42amUnknownResolvedPleural [...] leak August 31, 2025 3:11pmUnknownResolvedAnemia of renal diseaseMar 2024 4:33pmUnknownResolvedNausea & vomitingMay 2019 5:37pmUnknownResolved Problem List clean-up per request of Phys. EHR CmteAbdominal painOctober 2024 10:03pmUnknownResolvedHypertensionOctober 2018 11:08amUnknownResolved HypotensionMarch 2024 12:53pmUnknownResolvedPneumoniaOctober 2018 4:48pmUnknownResolvedProblem List clean-up per request of Phys. EHR Cmte PneumoniaOctober 2018 7:24amUnknownResolvedProblem List clean-up per request of Phys. EHR CmteStrokeOctober 2018 11:10amUnknownResolvedAcute cholecystitisOctober 2024 3:28pmUnknownResolvedAcute gangrenous cholecystitisNov2024 2:54pmUnknownResolvedCholelithiasisOctober 2024 10:03pmUnknownResolvedNSVT (nonsustained ventricular tachycardia) January 13, 2025 12:30pmUnknownResolvedHyperkalemiaMar 2024 4:26pm UnknownResolved Medications Medication Status Dose Units Route Directions Qty Days Refills S tart Date Stop Date End Date Reason(s) Instructions Adherence Donepezil 10 mg tablet Active 10 MG PO Every mor tammy March 02, 2020 11:00pmComplies with drug therapyAlbuterol Sulfate (Ventolin Hfa) 90 mcg/actuation Hfa Aerosol GdfgssfDkzhunmywyio6PFKXJUNAOSRSTNRCAKD 4-6 HOURS as needed for Shortness Of BreathMay 2019 11:00pmMar 2024 2:22pm Loznxrcphuq-Allkrbyjf-Encbxarf (Trelegy Ellipta) 100-62.5-25 mcg blister with zxkebuMooblciwkzdu5QJYAOORYDTFWAXVjvep morningMay 2019 11:00pmJune 2023 6:47amCephalexin (Keflex) 500 mg bwznxgyMuwfzhzywasl770CTIYUrulz vneaf1544 March 02, 2020 11:00pmJune 2023 11:50amOndansetron 4 mg tablet,wbiggvdhdaxetxTmwgyeqjkdky1TBLBO8H as needed for nausea and ahkfsfvq501 March 02, 2020 11:00pmJune 2023 8:18amcalcium carbonate-vitamin D3 Xlcdsyqevvjx6QDQQQDxivbPcdmw 2024 11:00pmNovember 2024 12:42pm kusdzbapsjiIoernxapdnwt76TOCZDderv dailyC[facility] 2024 11:00pmSeptember 2024 1:30pmHold if SBP <031kfqezdkxryevmnnlxylOxmxwyujevco12XQUIPzjtaQzbxd 2024 11:00pmC[facility] 2024 10:37amisosorbide hmufauprzrwAqwmuazkmrlt65CEEO .qdinnerC[facility] Clinic [facility] 2024 11:00pmC[facility] 2024 10:39zxuskjlthyRajwwughhdcd022 MGPODailyC[facility] Clinic [facility] 2024 11:00pmC[facility] 2024 10:37amTamsulosin (Flomax) 0.4 mg capsuleActive0.4MGPODailyC[facility] Clinic [facility] 2024 11:00pmUnknownWarfarin 6 mg Tablet Tebzykreozku4QEJN.COMPLEXCleveland Clinic South [facility]inte Hospital 2024 11:00pmJune 2024 11:48am6 mg orally SUMOTUTHFR; 3 mg orally WESAClonidine Hcl 0.2 mg tabletDiscontinued0.2MG POTwice dailyC[facility] Clinic [facility] 2024 11:00pmC[facility] 2024 10:36amClopidogrel 75 mg ZmcjpyVuzaiesvbshs64BERNZlsaw787487Hfemd 2024 11:00pm[facility] 20[facility] 2:58pmAspirin 81 mg Tablet,Delayed Release (Dr/Ec)Rgeidl54SNMRGtkqj94412Nchzg 2024 11:00pmComplies with drug therapyNitroglycerin 0.4 mg Tablet, SublingualActive0.3XISIQAOMZIFIS3R as needed for Chest Vqfu53360Qdedw 2024 11:00pmComplies with drug therapyMetoprolol Tartrate 25 mg DeyrvtUacygwkiebxz76 MGPOTwice rxwlv913484Txinz 2024 11:00pmFormerly [facility], [facility] 2024 11:47amAmiodarone 200 mg YxvakhYgrnuwjxgsdz098DRQOSwbhy94569Upzbn 2024 11:00pmApril 2024 1:48pmFurosemide 20 mg QvxvqaVgkwxiycvnpg69GVWHEqkfb at 0125372735Lahjc 2024 11:00pmAprwa 2024 1:47pmIsosorbide Mononitrate 30 mg tablet extended release 24 tyYlxloynzlgfw40SNBKViafa695892Ofseq 2024 11:00pm September 07, 2025 2:58pmAmiodarone 200 mg ifqyizVzahkx639AHAMOowdf564631Oqyoo 2024 11:00pmstart after 2 weeks of 400 mg dailyUnknownAtorvastatin 20 mg QhnuykCsbszq42NZIEXieyp snechai97755Vzftu 2024 11:00pmComplies with drug therapyAcetaminophen (Tylenol) 325 mg AkesuzTsjeaz018XBCJK1L550555Wodufrzv 2024 12:00amComplies with drug therapySodium Bicarbonate 650 mg CnliomEzrcev2928 MGPO3x/Day with lqtey147591Ujeugzcy 2024 12:00amComplies with drug therapy Oxycodone 5 mg CosqvcYoxdvu4UKKNEdlwj 6 hours as needed for Vcvu8386Zjnacppeute gangrenous cholecystitis Acute cholecystitisComplies with drug therapySodium Zirconium Cyclosilicate (Lokelma) 10 gram Powder In LpfzhaDcuhvh82MBGLKqdhi545Njwafdoy 19th, 2025 12:00amComplies with drug therapyMicafungin 100 mg recon wgfjBgidii576ABHXWwpwv5 September 09, 2025 12:00amadminister over 60 minsComplies with drug therapy Cholestyramine (With Sugar) 4 gram PowderDiscontinued0.ROUTE.COMPLEXOct2018 11:00pmFormerly [facility] 2023 6:48amOne scoop in juice or waterMontelukast (Singulair) 10 mg ZecdhjDwmtru39MVCIVaavrktUripzuy 15th, 2019 11:00pmUnknown Albuterol Sulfate (Ventolin Hfa) 90 mcg/actuation Hfa Aerosol Inhaler Nobzifilytng72FBZRUBWOUBFSCV5H as needed for Shortness Of BreathOct2018 11:00pmIay 2019 2:29taUxwvbcgtgsv-Yhzjsczfr-Bpapcers (Trelegy Ellipta) 100-62.5-25 mcg Blister With CndunkEwaiklonzpyo071WOCMQESHQSZMHDbmcc August 05, 2019 11:00pmIa2019 2:26pmMultivitamin (Daily Multi- Vitamin) DxeatbYdeynnzqwedm4LDVBWMapvkIcswqrf 2018 11:00pmC[facility] 2024 10:05djSmnew-9m-Lmv-Epa-Fish Oil ([place]-3 Fish Oil) 300-1,000 mg Capsule Cirpcbapkdcp6036XDVCWOzwrq dailyOct2018 11:00pm[facility] 2024 10:38amVerapamil 180 mg Tablet Extended SmzllotZahknsbbkqgl809EKYUXuzeaPvmjuaa 15th, 2019 11:00pm[facility] 2024 10:53ccQnmrxyniqqkg-Vvgpaiic-Ynkffw (Vision Plus Lutein) ItvwylKdjhrdnuiuzk1XKSJQVfrdmJpwptnl 2018 11:00pmFormerly [facility] 2023 8:19amWarfarin 6 mg OechrpQjbgpucjeeqt2EMPXLovzvItufclx 2018 11:00pm August 10, 2019 6:52amAmoxicillin-Pot Clavulanate (Augmentin) 500-125 mg xzvjngQlbbtjsiuous7OTFFZBftpi ryruo357Kjqsrry 2018 11:00pmMay 2019 2:26pmWarfarin 6 mg DsbwavVesqrujyceus5FSLRIfeim01Llppokn 2018 6:49amMarch 2024 10:39amContinue to titrate dose as he previously done prior to admission.Glipizide 5 mg enwmktCarcmmrvqduw3LKTLUnxpiQoga 2023 11:00pmJun2023 8:18amFreeTextSi tablet 30 minutes before breakfast Orally Once a day; Note: Source Status: Taking; Provider: Wayne Morrison ( )Enoxaparin 100 mg/mL ivqijkuLgsnuapdbfaz849HUPCLHARSq DirectedFormerly [facility] 2023 11:00pmJun2023 8:19amFreeTextSig: as directed Injection; Note: Source Status: Taking; Provider: Wayne Morrison ( ) Cholestyramine (With Sugar) 4 gram oewwooMxkhbogyheek9VEBRUNVdpzgWblg 2023 11:00pmMar 2024 11:34amFreeTextSi packet mixed with water or non- carbonated drink Orally Once a day; Note: Source Status: Taking; Provider: Wayne Morrison ( )Oifvskdfinc-Qcrsmzleo-Avuzkzsp (Trelegy Ellipta) 100-62.5-25 mcg blister with dvtjpiFqugkapgwybt2YMPJFBNNGCYETNpbzzFcda 2023 11:00pmNovember 2024 12:43pmFreeTextSi puff Inhalation Once a day; Note: Source Status: Continue; Provider: Wayne Fairbanks C-Vit W-Eqjhei-Kwtocmhi capsuleDiscontinuedCAPPODailyJune 2023 11:00pmMarch 2024 10:38amFurosemide 20 mg upknpvXetgbnwutfbi34AVMIRxeoc dailyApril 2024 1:45pmJune 2024 11:46amEmpagliflozin (Jardiance) 25 mg tablet Kohzpgxtfqom11NVMDEnjudVpffc 2024 11:00pmNovember 2024 2:58pm Amiodarone 200 mg eninauVukbbymfdiln495IGRGHttoaIacol 2024 1:48pmApril 2024 1:54pmPantoprazole 40 mg tablet,delayed release (DR/EC)Lbmmlg14WXJE DailyApril 2024 11:00pmComplies with drug therapyFerrous Sulfate 325 mg (65 mg iron) tablet,delayed release (DR/EC)Hyfhjz284QEELHlopRqlqq 2024 11:00pmOn Hold: pending improvement with therapy and bowelsUnknownTerazosin 2 mg qujbvdtXngvgb5TLMYTdbou at bedtimeApril 2024 11:00pmUnknownOxygen unit Discontinued0.RouteApril 2024 11:00pmApril 2024 2:00pmAs directed Oxygen unitActive0.RouteApril 2024 1:58pmAs directed 2-3 L/M iRezQ.Metoprolol Succinate 50 mg tablet extended release 24 dvPklwtq06 MGPODailyJune 2024 11:00pmComplies with drug therapyWarfarin 2 mg tablet Rirpfw2DXYPXsiicVors 2024 11:00pmUnknownTorsemide 20 mg jovxilGbzbte94ERIY DailyJune 2024 11:00pmOn Hold: Until seen by nephrology or increased swellingUnknown Immunizations Immunization Event Date Not Given Reason Dose Number Tile Sprayer Lot Number Reason(s) Given Vaccine Information Statement (VIS) Detail Administration Location COVID-19 mRNA-1273 (Moderna) November 24, 2020 COVID-19 mRNA-1273 (Moderna)December 22OVID-19 mRNA-1273 (Moderna)September 26, 2021Fluzone QIV High-Dose 65YR+July 01, [id number] Medical Equipment Device Date Implanted Device Details CL STENT DANICA FRONTIER 3.0 X 12 January 06, 2025 CL STENT DANICA FRONTIER 3.0 X 30MarL STENT DANICA FRONTIER 3.5 X 18 January 06, 2025Femoral artery closure plug/patch, synthetic [facility] 2024UDI: [id number] Issuing Agency: [employer] Device Id: [id number] Lot Number: [id number] Vital Signs Vital Reading Result Reference Range Collection Date/Time Height 72 [in_i] June 30, 2025 1:84teVvglfa26.82 kgSept2024 1:31pmHeart Rate94 /oth90-069RiccigkezJune 30, 2025 1:31pmRespiratory rate20 /gjt76-81Kpuumlgqs 9th, 2025 1:31pmOxygen saturation by Pulse dmtuewgs81 %95-100Se2024 1:31pmBP Iqhtqzon008 mm[Hg]100-140Se2024 1:31pmBP Qsjulotyj50 mm[Hg]60-100Se2024 1:31pmBMI (Body Mass Index)25.3 kg/j6GlnqhpffvJune 30, 2025 1:31pmInhaled oxygen flow rate2 L/minS2024 1:31pmHeight 77 [in_i]September 08, 2025 3:02ghFgzksx67.50 kgSeptember 09, 2025 5:40amBody Msignwlipmo13.9 [degF]97.6-99.0September 09, 2025 8:22amHeart Rate90 /kuk50-521 September 09, 2025 8:22amRespiratory rate17 /jno77-66UnxwzsbaSeptember 09, 2025 8:22am Oxygen saturation by Pulse %95-100September 09, 2025 8:22amBP Qskvdrsn430 mm[Hg]100-140September 09, 2025 8:22amBP Hbwumvffy41 mm[Hg]60-100 September 09, 2025 8:22amInhaled oxygen flow rate2 L/minSeptember 09, 2025 8:69ytWzcbie49 [in_i]September 18, 2025 7:15ggEcgfhi05.80 kgNovember 2024 6:05amBody Avetiqaoato70.2 [degF]97.6-99.0December 2024 5:00amHeart Rate 101 /fsz18-207Ukrjvewl 2024 5:00amRespiratory rate18 /ece90-96Uyilzcxv 2024 5:00amOxygen saturation by Pulse jgsusbws03 %95-100Decemb2024 5:00amBP Vmscuhaj961 mm[Hg]100-140December 2024 5:00amBP Dnescyyac71 mm[Hg] 60-100December 2024 5:00amInhaled oxygen flow rate2 L/minDecember 2024 8:00am Advance Directives Advance Directive Response Recorded Date/ Time Advance Directives Yes April 03 8:07am Insurance Providers Guarantor Cordell Villarreal P Address [address] [place] [address]Elcesbw Info.Home Phone: Coverage Status Update:2025 Payer Group Member ID Coverage Type Subscriber Relationship to Subscriber Effective Date Expiration Date Medicare [id number] Kline , P Id: [id number] [address] [place] [address] Home Phone: Email: [email or web address] Hospitaledictr[facility] Rehab-IP Part A [id number] Kline , P Id: [id number] [address] [place] [address] Home Phone: Email: [email or web address] [address] [id number] Kline , P Id: [id number] [address] [place] [address] Home Phone: Email: [email or web address] Encounters Encounter Location(s) Arrival/Admit Date Discharge/Departure Date Discharge/Departure Disposition Provider(s) Departed Physician/ Provider Office Visit -[facility] Pulmonary June 30, 2025 2:16pm June 30, 2025 3:12pm Discharged to home care or self care (routine discharge) Prince Black MD Non-patient / Non-visit -[facility] Cardiology O ctober 2024 6:31pm Chas Duran MDNon-patient / Jby-dlkry-Choxkqydi Health Infect DisNovember 2024 12:00amMmarisol Sandoval [facility]DP[facility] / Pxs-pdfbj-Gwvprkilb Health PalliativeNovember 2024 12:00amGriffin Stephens Jr [facility]-patient / Zyn-sqrhv-Lnjkddhxd Health Neph SandNovember 2024 12:00Woodrow Boston MD Non-patient / Mcd-sgahq-Tezgxhgby Health PalliativeNovember 2024 12:12pm Griffin Stephens Jr [facility]-patient / Doa-pabbn-Zaqqtgbhv Health Rehab & Spine September 16, 2025 12:00Phil Valencia APRN Recent Diagnosis Onset Date Admit Date Pneumonia Unknown June 30, 2 025 2:16pm Pulmonary nodules Unknown June 30, [...] 18, 2025 6:31pm Anticoagulant long-term use Unknown 2024 6:31pm Bile leak Unknown August 18 [...] protein-calorie malnutrition Unknown August 18, 2025 6:31pm Debility Unknown September 09 12:12pm Ileostomy in [...] Unknown September 09, 2025 12:12pm Hyperkalemia Unknown November 19th, 2 025 12:12pm Hypertensive chronic kidney disease with stage [...] 2:16pm Pressure ulcer of left buttock, stage [facility] 2024 6:31pmAbdominal paininactiveCore[facility] 20[facility] 6:31pmAcute cholecystitisinactiveCore[facility] 2024 6:31pmAcute gangrenous cholecystitisinactiveCore[facility] 2024 6:31pmAcute kidney injury superimposed on CKDinactiveOctharrison memorial hospital 2024 6:31pmAcute UTI inactiveCore[facility] 2024 6:31pmAlzheimers diseaseinactiveCore[facility] 2024 6:31pmAmbulatory dysfunctioninactiveCore[facility] 2024 6:31pmAnemiainactive August 18, 2025 6:31pmAnemia of renal diseaseinactiveCore[facility] 2024 6:31pmAnticoagulant long-term useinactiveCore[facility] 2024 6:31pmBile leak inactiveCore[facility] 2024 6:31pmBile leak, postoperativeinactiveCore[facility] 2024 6:31pmCandidemiainactiveCore[facility] 2024 6:31pmCholelithiasisinactive August 18, 2025 6:31pmCKD (chronic kidney disease), stage IIIinactiveCore[facility] 2024 6:31pmCOPD (chronic obstructive pulmonary disease)inactiveCore[facility] 2024 6:31pmCounseling regarding advance directives and goals of care inactiveCore[facility] 2024 6:31pmHistory of heart artery stentinactiveCore[facility] 2024 6:31pmHistory of non-ST elevation myocardial infarction (NSTEMI) [facility] 2024 6:31pmHyperkalemiainaHutzel Women[facility] Hospital 2024 6:31pm Hypertensive chronic kidney disease with stage 1 through stage 4 chronic ki inactiveCore[facility] 2024 6:31pmHyponatremiainactiveCorewell Health [facility] 2024 6:31pm Impaired mobility and activities of daily livinginaHutzel Women's Hospital 2024 6:31pm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inaHutzel Women's Hospital 2024 6:31pm LeukocytosisinaHutzel Women's Hospital 2024 6:31pmMechanical heart valve present [facility] 2024 6:31pmMetabolic acidosisinaHutzel Women's Hospital 2024 6:31pmSevere protein-calorie malnutritioninaHutzel Women's Hospital 2024 6:31pm DebilityacuteWest[facility] 2024 12:12pmIleostomy in placeAusten Riggs Center 2024 12:12pmNeurogenic bladderAusten Riggs Center 2024 12:12pmPressure injury of deep tissue of left heelAusten Riggs Center 2024 12:12pmPressure ulcer of left buttock, stage 3acuteNoveer 2024 12:12pmStage I pressure ulcer of right heelAusten Riggs Center 2024 12:12pmAcute gangrenous cholecystitisinaR[facility] 2024 12:12pmAmbulatory dysfunctioninaWinchendon Hospital 2024 12:12pmAnemiainaWinchendon Hospital 2024 12:12pmBile leakinaWinchendon Hospital 2024 12:12pmCandidemiainaWinchendon Hospital 2024 12:12pmCKD (chronic kidney disease), stage IIIinaWinchendon Hospital 2024 12:12pmCOPD (chronic obstructive pulmonary disease)[facility] 2024 12:12pmCounseling regarding advance directives and goals of careCedars Medical Center 2024 12:12pm HyperkalemiainaWinchendon Hospital 2024 12:12pmHypertensive chronic kidney disease with stage 1 through stage 4 chronic kiinaWinchendon Hospital 2024 12:12pmImpaired mobility and activities of daily livinginaWinchendon Hospital 2024 12:12pm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inactiveNov2024 12:12pm Metabolic acidosisinactiveNov2024 12:12pmSevere protein-calorie malnutritioninactiveSeptember 09, 2025 12:12pm Plan of Treatment Author Prince Black [facility]ho[facility]2024 2:09pmPatient is clinically stable and potentially was [...] Calorie Count September 03, 2025 4:32pm Novem 2024 4:32pm Diet Supplement August 27, 2025 3:50pm Novemb er 2024 3:50pm PICC Line Insertion Consult September 04, 2025 1:33pm September 04, 2025 1:33pm Admit Status Order August 18, 2025 5:30pm Oct jacob 2024 5:31pm Discharge Order September 09, 2025 9:45am Novem 2024 9:45am Consult to General Surgery August [...] 12:25pm Diet Supplement September 09, 2025 12:25pm Hari cobian 2024 12:25pm Feeding Strategies/Supervision/Equipme nt/Location September 10, 2025 8:03am September 10, 2025 8:03am Admit Status Order September 09, 2025 12:19pm N ovember 2024 12:19pm Consult to Adult Hospitalist September 09, 2025 12:19pm September 09, 2025 12:19pm Basic Metabolic Panel September 09, 2025 11:51p m September 23, 2025 5:00am Code Status September 09, 2025 12:19pm Hari cobian 2024 12:19pm Consult to General Surgery September 09, 2025 1 2:35pm September 09, 2025 12:35pm Consult to Nephrology September 14, 2025 9:29am September 14, 2025 9:29am Consult to Palliative Care Doctor September 09, 2025 12:35pm September 09, 2025 12:35p m Prothrombin Time INR September 18, 2025 9:38am September 27, 2025 5:00am Prothrombin Time INR September 18, 2025 9:38am September 28, 2025 5:00am Prothrombin Time INR September 18, 2025 9:38am September 29, 2025 5:00am Prothrombin Time INR September 18, 2025 9:38am October 02, 2025 5:00am Prothrombin Time INR September 18, 2025 9:38am October 03, 2025 5:00am Prothrombin Time INR September 18, 2025 9:38am September 22, 2025 5:00am Prothrombin Time INR September 18, 2025 9:38am September 23, 2025 5:00am Prothrombin Time INR September 18, 2025 9:38am September 24, 2025 5:00am Prothrombin Time INR September 18, 2025 9:38am September 25, 2025 5:00am Prothrombin Time INR September 18, 2025 9:38am September 26, 2025 5:00am Prothrombin Time INR September 18, 2025 9:38am September 30, 2025 5:00am Prothrombin Time INR September 18, 2025 9:38am October 01, 2025 5:00am Complete Pulmonary Function June 30, 2025 1:57pm 4 Months Future Medications Future medication information is unavailable Patient Instructions Instruction Admit Date Hope Pamphlet August 18, 2025 6 :31pm Hope Pamphlet September 09, 2025 12:12pm
--- OUTSIDE RECORDS SUMMARY | 2025-10-01 17:59 | XMS_ITS | Encounter Summary ---
Author Organization [facility] tem Address [facility] [id number] [address] [place] [address] Care Team Providers Care Lightning Rod Erector Name Role Phone Suyapa Bo MD Primary Care Provider [phone] Encounter Details DateTypeDepartmentCare Team (Latest Contact Info)Qarjjojuxvh94/24/2025Telephone [facility] - Pharmacy Medication Management [address] [address] Em Cummins, [facility] [address] [place] [address] Social History Tobacco UseTypesPacks/DayYears UsedDateSmoking Tobacco: NeverSmokeless Tobacco: FormerChewAlcohol UseStandard Drinks/WeekCommentsNo0 (1 standard drink = 0.6 oz pure alcohol)[facility] UtilitiesAnswerDate RecordedIn the past 12 months has the [employer], gas, oil, or water [employer] threatened to shut off services in your home?No12/25/2024PRAPARE - TransportationAnswerDate RecordedIn the past 12 months, has lack of transportation kept you from medical appointments or from getting medications?No12/25/2024In the past 12 months, has lack of transportation kept you from meetings, work, or from getting things needed for daily living?No12/25/2024Housing InstabilityAnswerDate RecordedAre you worried or concerned that in the next two months you may not have stable housing that you own, rent or stay in as a part of a household?No03/06/2025ChildcareAnswer Date CserqoabFpncduylpOcarcqt23/07/2019EmploymentAnswerDate RecordedEmployment Nwctfzl8403/28/2019Hunger ScreeningAnswerDate RecordedWithin the past 12 months we worried whether our food would run out before we got money to buy more.Never True05/28/2025Within the past 12 months the food we bought just didn't last and we didn't have money to get more.Never True05/28/2025Purpose - LifeAnswerDate RecordedPurpose and direction in ajjjXfvlvee80/11/2021ex and Gender Information ValueDate RecordedSex Assigned at WzqcfEunc52/26/2022 6:04 AM EDTLegal SexMale 05/27/2015 11:21 AM EDTGender BdriebtqGivt12/26/2022 6:04 AM EDTSexual IaaqoxrhbzsKgefcnaz94/26/2022 6:04 AM EDTdocumented as of this encounter Miscellaneous Notes * Telephone Encounter - Em Cummins RPH - 09/14/2025 9:11 AM EST Political Science Instructor spoke to band reamer machine operator at [facility] who reports patient is no longer admitted inpatient. Fax sent to medical records requesting information from hospitalization. * Telephone Encounter - Dorothy Sanchez - 09/14/2025 9:11 AM EST Patient appeared on the 30 day OD INR report. LVM for patient to call back and schedule an INR appointment. Ltr sent. * Telephone Encounter - mE Cummins RPH - 09/14/2025 9:11 AM EST Resent fax to [facility] today as medical records from admission not yet received. documented in this encounter Plan of Treatment DateTypeDepartmentCare Team (Latest Contact Info)Etusattcyho58/29/2025 9:00 AM ESTAppointment [facility] [address] [place] [id number] Riccardo Kelley DO [facility] [place], [place] [id number] documented as of this encounter Goals GoalPatient Goal TypeAssociated ProblemsRecent ProgressPatient-Stated?Author Home with self care Gracia Riley, SANCHEZ Note: Evaluation of progress towards goal: Patient plans to return home with self care and follow up withprovider. documented as of this encounter Visit Diagnoses Not on filedocumented in this encounter Care Teams Team MemberRelationshipSpecialtyStart DateEnd Date Suyapa Bo MD [address] [place] [address] PCP - GeneralFamily Medicine06/11/24documented as of this encounter
--- OUTSIDE RECORDS SUMMARY | 2025-10-01 17:59 | XMS_ITS | Clinical Summary ---
Author Organization [facility] tem Address [facility] [id number] [address] [place] [address] Care Team Providers Care Project Economist Name Role Phone Suyapa Bo MD Primary Care Provider [phone] Allergies Active AllergyReactionsCriticalityNoted DateCommentsClonazepamOther (See Comments),Gbhotga2302/19/20253894Siuupuwejwnk17/30/6039Utxnalxzzoux91/30/2017 Medications MedicationSigDispense QuantityRefillsLast FilledStart DateEnd DateStatus montelukast (SINGULAIR) 10 mg tablet Take 1 tablet (10 mg total) by mouth in the morning.Active donepeziL (ARICEPT) 10 mg tablet Take 1 tablet (10 mg total) by mouth in the morning.Active OMEGA-3 FATTY IUXEZ-XWP-MMW ORAL Take 1,200 mg by mouth in the morning and 1,200 mg before bedtime.Active Oo-S5-ubc-znni-edn-nedr-boron (CALTRATE 600+D PLUS MIN) 600 mg calcium- 800 unit-40 mg tablet,chewable Active kgokmujntlp-aawjjlehs-poknznnz (TRELEGY ELLIPTA) 100-62.5-25 mcg blister with device Active albuterol (PROVENTIL HFA;VENTOLIN HFA) 90 mcg/actuation inhaler Active mv-mn/om3/dha/epa/fish/lut/tanisha (OCUVITE ADULT 50 PLUS ORAL) Take by mouth.Active multivitamin (ONE-A-DAY ESSENTIAL) tablet Take 1 tablet by mouth in the morning.Active LUTEIN ORAL Take by mouth in the morning.Active tamsulosin (FLOMAX) 0.4 mg capsule Take 1 capsule (0.4 mg total) by mouth in the morning. 30 capsule 5Active aspirin 81 mg Take 1 tablet (81 mg total) by mouth in the morning.Active clopidogreL (PLAVIX) 75 mg tablet Take 1 tablet (75 mg total) by mouth in the morning.Active metoprolol tartrate (LOPRESSOR) 50 mg tablet Take 1 tablet (50 mg total) by mouth in the morning.Active atorvastatin (LIPITOR) 20 mg tablet Take 1 tablet (20 mg total) by mouth in the morning.Active isosorbide mononitrate (IMDUR) 30 mg 24 hr tablet Take 1 tablet (30 mg total) by mouth daily.Active amiodarone (PACERONE) 200 mg tablet Take 1 tablet (200 mg total) by mouth in the morning.Active pantoprazole (PROTONIX) 40 mg EC tablet Take 1 tablet (40 mg total) by mouth in the morning.Active terazosin (HYTRIN) 2 mg capsule Take 1 capsule (2 mg total) by mouth nightly.Active ferrous sulfate 325 (65 FE) mg EC tablet Take 1 tablet (325 mg total) by mouth daily with dinner.Active nitroglycerin (NITROSTAT) 0.[address] 1 tablet (0.4 mg total) under the tongue every 5 (five) minutes as needed for chest pain.Active empagliflozin (JARDIANCE) 25 mg tablet tablet Take 1 tablet (25 mg total) by mouth in the morning.Active torsemide (DEMADEX) 20 mg tablet Take 1 tablet (20 mg total) by mouth daily./6Active warfarin (COUMADIN) 2 mg tablet Indications:History of aortic valve replacement,Transient ischemic attack,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Take 1.5 tablets (3 mg total) by mouth in the evening. As directed by [facility] MedicationManagement (PPMM). 135 tablet 5Active Active Problems ProblemNoted DateDiagnosed DateSBO (small bowel obstruction)5COPD (chronic obstructive pulmonary disease)07/27/2022Essential hypertension 07/27/2022mall bowel obstruction due to gmceaqmhz65/26/2022mall bowel bktcykiloud58/05/2018Ventricular premature aiwckszushehfh58/27/2018Pneumonia 03/28/2017Encounter for preprocedural cardiovascular yxawevqsxrk16/23/2017 History of aortic valve ehzdizrhhbk28/16/2016Transient ischemic lqudfq2009/06/2016 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 [Z79.01]09/06/2016Aneurysm of thoracic aorta07/08/2008ortic valve wkxiwugx54/19/2006sthma without status asthmaticus 06/09/2006 Encounters DateTypeDepartmentCare VygoYngrqzfwckt49/24/2025Telephone [facility] - Pharmacy Medication Management [address] [place] [address] Em Cummins, [facility] 08/19/2025Telephone [facility] - Pharmacy Medication Management [address] [place] [address] Cristin Singh MA 07/29/2025 8:30 AM EDTFollow Up Anticoagulation [facility] - Pharmacy Medication Management [address] [place] [address] History of aortic valve replacement (Primary Dx); Transient ischemic attack; 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 [Z79.01]07/29/20259003Iqqqmz73/24/2025 1:00 PM EDTClinical Support [facility] - Cardiac Rehab [address] [place] [address] 07/15/2025 12:45 PM EDTFollow Up Anticoagulation [facility] - Pharmacy Medication Management [address] [place] [address] History of aortic valve replacement (Primary Dx); Transient ischemic attack; alf (current) use of anticoagulants [Z79.01]07/15/20250939Ukngdx56/18/2025 1:00 PM EDTClinical Support [facility] - Cardiac Rehab [address] [place] [address] 07/09/2025Telephone [facility] Cardiology [address] [address] RufinoRupinder lance KYARA 07/08/2025 1:00 PM EDTClinical Support [facility] - Cardiac Rehab [address] [place] [address] 07/08/2025 12:45 PM EDTFollow Up Anticoagulation [facility] - Pharmacy Medication Management [address] [place] [address] History of aortic valve replacement (Primary Dx); Transient ischemic attack; alf (current) use of anticoagulants [Z79.01]07/08/20256317Jdryjj96/11/2025 1:00 PM EDTClinical Support [facility] - Card[facility] Rehab [address] [place] [address] from Last 3 Months Immunizations ImmunizationAdministration DatesNext DueInfluenza, Injectable, quadrivalent (PF) 07/27/2022 Family History Medical HistoryRelationNameCommentsHeart diseaseFatherCancerMotherRelationName StatusCommentsFatherDeceasedMotherDeceased Social History Tobacco UseTypesPacks/DayYears UsedDateSmoking Tobacco: NeverSmokeless Tobacco: FormerChewAlcohol UseStandard Drinks/WeekCommentsNo0 (1 standard drink = 0.6 oz pure alcohol)[facility] UtilitiesAnswerDate RecordedIn the past 12 months has the [employer], gas, oil, or water [employer] threatened to shut off services in your home?No12/25/2024PRAPARE - TransportationAnswerDate RecordedIn the past 12 months, has lack of transportation kept you from medical appointments or from getting medications?No12/25/2024In the past 12 months, has lack of transportation kept you from meetings, work, or from getting things needed for daily living?12/25/2024Housing InstabilityAnswerDate RecordedAre you worried or concerned that in the next two months you may not have stable housing that you own, rent or stay in as a part of a household?No12/25/2024hildcareAnswer Date DjgimgtdNdvnfmyiiIelgooi93/07/2019EmploymentAnswerDate RecordedEmployment Afywvyy8803/28/2019Hunger ScreeningAnswerDate RecordedWithin the past 12 months we worried whether our food would run out before we got money to buy more.Never True05/28/2025Within the past 12 months the food we bought just didn't last and we didn't have money to get more.Never True05/28/2025Purpose - LifeAnswerDate RecordedPurpose and direction in ojnwCbqqzzw25/11/2021ex and Gender Information ValueDate RecordedSex Assigned at TzsuwZzqa15/26/2022 6:04 AM EDTLegal SexMale 05/27/2015 11:21 AM EDTGender VlpvtvgeEpol92/26/2022 6:04 AM EDTSexual JoefmfjidyoVilmlfzt42/26/2022 6:04 AM EDT Last Filed Vital Signs Vital SignReadingTime TakenCommentsBlood Aawbxfkd928/7008 11:09 AM EDT Pfuji624405/28/2025 11:09 AM ZGTVrgisuxhpek95.7 ??C (98 ??F)12/31/2024 11:30 AM EDTRespiratory Wjnl561012/31/2024 11:30 AM EDTOxygen Ozqijdfbrt72%05/28/2025 11:09 AM EDTInhaled Oxygen Concentration--Cxbjek87.6 kg (213 lb)05/28/2025 11:09 AM NJWQzwvas432.6 cm (6' 5 )05/28/2025 11:09 AM EDTBody Mass Index25.26005/28/2025 11:09 AM EDT Plan of Treatment DateTypeDepartmentCare Team (Latest Contact Info)Dncmydqkrfx73/29/2025 9:00 AM ESTAppointment [facility] - Ultrasound [address] [place] [address] Riccardo Kelley, [address] [place] [address] Health MaintenanceDue DateLast DoneCommentsDepression Jdhywipqo16/19/1953Zoster (Shingles) Vaccine (1 of 2)1991Fall Risk Dnutobhuf62/19/2006COVID-19 Vaccine ( season)/07/2025, 08/31/2023, 09/26/2021, Additional history existsTobacco Pocivwkpl17DTaP,Tdap and Td Vaccines (2 - Td or Tdap)5007/01/2025Influenza VaccineCompleted 07/01/2025, 07/08/2024, 08/31/2023, Additional history existsRSV ( or age 60+ yrs)Puofuabpb00/10/2025 Goals GoalPatient Goal TypeAssociated ProblemsRecent ProgressPatient-Stated?Author Home with self care Gracia Riley, SANCHEZ Note: Evaluation of progress towards goal: Patient plans to return home with self care and follow up withprovider. 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 ComponentValueRef RangeTest MethodAnalysis TimePerformed AtPathologist Signature INR2.1(A)0.8 - 1.2MANUALLY TRANSCRIBED RESULTSSpecimen (Source)Anatomical Location / LateralityCollection Method / VolumeCollection TimeReceived Time 07/29/2025 8:11 AM EDT Narrative Authorizing ProviderResult TypeResult StatusPromedica Pharmacy Medication ManagementPOINT OF CARE TEST ORDERABLESFinal ResultPerforming Organization AddressCity/State/ZIP CodePhone Number MANUALLY TRANSCRIBED RESULTS from Last 3 Months Insurance Advance Directives * Full Code (Latest Code Status on File) Date ActivatedDate InactivatedComments12/25/2024 4:14 AM12/31/2024 7:52 PM * Full Code Date ActivatedDate BqhdefmuygdBikhwury78/6/2022 11:08 AM07/29/2022 11:37 AM * Full Code Date ActivatedDate InactivatedComments02/23/2018 9:35 AM02/24/2018 5:53 PM Care Teams Team MemberRelationshipSpecialtyStart DateEnd Date Suyapa Bo MD [address] [place] [address] PCP - GeneralFamily Medicine06/11/24
--- OUTSIDE RECORDS SUMMARY | 2025-10-01 17:59 | XMS_ITS | Patient Health Record ---
Author Organization [facility] in [place] Address [address] [place] [address] Care Team Providers Care Invas Tech Name Role Phone Suyapa Bo MD Primary Care Provider Valerio Ace Unavailable [phone] Allergies Allergen (clinical drug ingredient) Drug/Non Drug Allergy documented on EMR Reaction Allergy Type Onset Date Status clonazepam clonazePAM Unknown Drug Allergy ActiveSubstance with 2-egdjpfw-9-methylglutaryl-coenzyme A reductase inhibitor mechanism of action (substance)StatinsUnknownDrug AllergyActive Results Component Value Reference Range Notes ALBUMIN Reviewed date:04/21/2025 04:13:56 PM Interpretation: Performing Lab: Notes/Report: ALBUMIN 3.7 3.2-5.3 g/dL PERFORMED AT [address] [place] [address] MAGNESIUM Reviewed date:04/21/2025 04:14:25 PM Interpretation: Performing Lab: Notes/Report: MAGNESIUM 2.0 1.8-2.6 mg/dL PERFORMED AT [address] [place] [address] PHOSPHORUS Reviewed date:04/21/2025 04:13:46 PM Interpretation: Performing Lab: Notes/Report: PHOSPHORUS 3.7 2.4-4.9 mg/dL PERFORMED AT [address] [address] MICROALBUMIN WITH RATIO Reviewed date:04/21/2025 04:12:45 PM Interpretation: Performing Lab: Notes/Report: URINE CREATININE,RDM 35.73 MALB/CREAT RATIO33.60.0-30.0 mg/gMICROALBUMIN, URINE1.20.0-1.9 mg/dL PERFORMED AT [address] [address] PTHI ([facility]) Reviewed date:04/21/2025 04:13:28 PM Interpretation: Performing Lab: Notes/Report:PTH BVRPYA5605-01 pg/mL PERFORMED AT [address] [address] VITAMIN D 25 HYD TOT Reviewed date:04/21/2025 04:13:18 PM Interpretation: Performing Lab: Notes/Report:VITAMIN D 25 HYD TOT31.930.0-100.0 ng/mL Deficiency <20 ng/mL Insufficiency 20-29 ng/mL Toxicity >100 ng/mL PERFORMED AT [address] [place] [address] Vitamin D status 25 [place] Vitamin D NOTE: A pediatric reference range has not been established by the motion picture critic of this kit. The [place] [employer] recommends a Vitamin D level of = or >20ng/mL in infants and children. Sufficiency 30-100 ng/mL URIC ACID Reviewed date:04/21/2025 04:14:06 PM Interpretation: Performing Lab: Notes/Report:URIC ACID7.52.6-7.2 mg/dL PERFORMED AT [address] [address] RENAL PANEL Reviewed date:04/22/2025 11:18:03 AM Interpretation: Performing Lab: Notes/Report:ALBUMIN3.73.2-5.3 g/dLCALCIUM9.08.5-10.5 mg/dLPHOSPHORUS3.72.4-4.9 mg/dFZPRLTSZ03254-54 mg/dLBLOOD UREA CGAVRVFK623-23 mg/dLCREATININE2.240.60-1.30 mg/dLMETHOD TRACEABLE TO IDMS MGAZNODNQMPRBB619603-706 mmol/LPOTASSIUM4.13.5-5.0 mmol/OGRHJWGPR99750-156 mmol/LCARBON EGHAFYP8976-85 mmol/LANION DNP78-24 mmol/L EGFR (CKD-EPI) NON-RACE AKMIDCGNY61>=60 ml/min/1.73sq.m PERFORMED AT [address] [address] CKD-EPI 2020 equation that does not use a race coefficient. Reported eGFR is based on the URINALYSIS Reviewed date:04/21/2025 04:14:43 PM Interpretation: Performing Lab: Notes/Report:COLORColorlessYellow, ColorlessTURBIDITYClearClearSPECIFIC GRAVITY 1.0101.003-1.035 NANITRITENegativeNegativePH,URINE6.05.0-8.5 NALEUKOCYTE ESTERASELargeNegativePROTEINNegativeNegativeKETONES (URINE)NegativeNegative UROBILINOGEN<1.1 eu/dL<1.1 eu/dLBILIRUBIN (URINE)NegativeNegativeBLOOD/HGB NegativeNegativeHYALINE RYKXW451-3 NAMUCOUSPresentNoneR.B.JMVMI02-9 NASQUAMOUS OKKZOEPXUZ70-6 NAW.B.ATOFS387-9 NAGLUCOSE (URINE)500 mg/dLNegative PERFORMED AT [address] [address] CBC (COMPLETE BLOOD COUNT) * Reviewed date:04/21/2025 04:14:52 PM Interpretation: Performing Lab: Notes/Report:WBC3.94-11 x10E9/LRBC COUNT4.044.1-5.7 X10E12/VPUHXAGPHIM46.413-17 g/aMDIYPADXOVJ29.939-50 %FKA3854-686 fLMCH25.827-34 nbGUDK75.632-36 g/dLRDW20.4 11.5-15 %PLATELET GOYGL634390-913 X10E9/LMPV8.07-[address] [address] Reason For Referral Reason evaluate and treat Diagnosis 1 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) Referral Organization [facility] Referring Provider First Name Valerio Referring Provider Last Name Ranker Referring Provider Speciality Nephrology Referred Provider Riccardo Kelley Referred Provider Specialty General Surg rhonda Referral Priority Routine Medications Medication SIG (Take, Route, Frequency, Duration) Notes Start Date End Date Status Terazosin HCl 2 MG 1 capsule at bedtime Orally O nce a day ActivePantoprazole Sodium 40 MG1 tablet 1/2 to 1 hour before morning meal Orally Once a dayActiveTamsulosin HCl 0.4 MG1 capsule Orally Once a dayActive Multivitamin & MineralActiveNitroglycerin 0.4 MG 1 tablet under the tongue and allow to dissolve as needed. Take every 5 minutes up to 3 times if chest pain persists Sublingual Three times a day As needed ActiveMetoprolol Succinate ER 50 MG1 tablet Orally Once a dayActiveMontelukast Sodium 10 MG1 tablet Orally Once a dayActiveIsosorbide Mononitrate ER 30 MG1 tablet in the morning Orally Once a dayActiveLuteinActivehydrALAZINE HCl 25 MG 1 tablet with food Orally As needed ActiveFerrous Sulfate 325 (65 Fe) MG1 tablet OrallyActiveFish OilActiveDonepezil HCl 10 MG1 tablet at bedtime Orally Once a dayActiveMoxifloxacin HCl 400 MG1 tablet Orally Once a dayNot-TakingEmpagliflozin 25 MG1 tablet Orally Once a day ActiveCaltrate 600ActiveLosartan Potassium 100 MG1 tablet Orally Once a day Not-TakingClopidogrel Bisulfate 75 MG1 tablet Orally Once a dayActiveMetoprolol Tartrate 25 MG1 tablet with food Orally Twice a dayNot-TakingAspirin 81Active Furosemide 20 MG1 tablet Orally Once a dayNot-TakingAtorvastatin Calcium 20 MG1 tablet Orally Once a dayActivehydroCHLOROthiazide 25 MG1 tablet in the morning Orally Once a dayNot-TakingWarfarin Sodium 2 MG1-2 tablet Orally HSActive Amiodarone HCl 200 MG1 tablet Orally Once a dayActiveAlbuterol SulfateNot-Taking Torsemide 20 MG1 tablet Orally Once a dayActiveTrelegy Ellipta 100-62.5-25 MCG/ACT1 puff Inhalation Once a dayActive Social History Tobacco Use: Social History Observation Description Date Details (start date - stop date) Former Smoker NA - NA Tobacco Control (Standard) Question Answer Notes Tobacco use: Former smoker Problems Problem Type SNOMED Code ICD Code Onset Dates Problem Status W/U Status Risk Notes Problem Cholesterolosis of g allbladder (45628516) 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) ActiveconfirmedProblemHypertension (04297312)Hypertension (I10)Activeconfirmed ProblemDiabetes mellitus type 2 (disorder) (49167155)DM2 (diabetes mellitus, type 2) (E11.9)ActiveconfirmedProblemCardiorenal syndrome (297309481)Cardiorenal syndrome (I13.10)ActiveconfirmedProblemAccelerated essential hypertension (26543314)Accelerated essential hypertension (I10)ActiveconfirmedProblem Essential hypertension (77152713)Asymptomatic hypertension (I10)Activeconfirmed ProblemAbnormal metabolic state due to diabetes mellitus (405922432)Abnormal metabolic state due to diabetes mellitus (E11.9)ActiveconfirmedProblemChronic kidney disease stage 3B (disorder) (250742530)Chronic kidney disease, stage 3b (N18.32)ActiveconfirmedProblemChronic kidney disease stage 3B (disorder) (184589730)Chronic kidney disease (CKD) stage G3b/A1, moderately decreased glomerular filtration rate (GFR) between 30-44 mL/min/1.73 square meter and albuminuria creatinine ratio less than 30 mg/g (N18.32)ActiveconfirmedProblem 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) (155023228275836)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)Active confirmed Vital Signs Blood pressure diastolic 68 mm Hg 05/04/2025 Height6 ft 5 in in05/04/2025lood pressure sxunhbfs010 mm Hg05/04/2025Weight 203.0 lbs05/04/2025BMI24.07 kg/m205/04/2025 Encounters Encounter Location Date Provider Diagnosis [facility] [place] [address] [place] [address] 03/24/2025 [facility] [address] [place] [address] 04/08/2025[facility] [address] [place] [address]Valerio RankerChronic kidney disease, stage 3b N18.32 ; Cardiorenal syndrome I13.10 ; Asymptomatic hypertension I10 and DM2 (diabetes mellitus, type 2) E11.9[facility] [address] [address]/14/2025John RankerChronic kidney disease, stage 3b N18.32 ; DM2 (diabetes mellitus, type 2) E11.9 ; Cardiorenal syndrome I13.10 and Asymptomatic hypertension I10 Assessments Encounter Date Diagnosis (ICD Code) Assessment Notes Treatment Notes Treatment Clinical Notes Section Notes 03/26/2025 Chronic kidney disease, stage 3b (ICD-10 - N18.32) 85 yo M with recent ORLIN at the time of a UTI, and most recent Cr values in the CKD 3b range, related to cardiorenal and chronic obstructive issues Continue torsemide and SGLT2i for managment of his CHF OK to continue hydralazine and nitrates instead of ARB due to low GFR Encourage low Na diet Avoid all NSAID use Order initial blood and urine studies, as well as a kidney and bladder US, for evaluation of his CKD Continue supplemental O2 use Continue current antihypertensive regimen Encourage good DM control Continue BID intermittent straight caths 03/26/2025ardiorenal syndrome (ICD-10 - I13.10)05/04/2025hronic kidney disease, stage 3b (ICD-10 - N18.32) Fluctuating Cr is related to obstructive issues and cardiorenal factors Continue torsemide and SGLT2 for management of his CHF BP is controlled Continue supplemental O2 therapy Electrolytes and PTH are OK Hgb is stable over 10 Avoid all NSAID use Continue BID straight caths and f/u with urology as scheduled Avoid IV contrast use F/U with cardiology for management of abnormal gallbladder US, repeat imaging planned for 6 months Albuminuria is minimal 05/04/2025DM2 (diabetes mellitus, type 2) (ICD-10 - E11.9)05/04/2025ardiorenal syndrome (ICD-10 - I13.10)03/26/2025symptomatic hypertension (ICD-10 - I10) 03/26/2025DM2 (diabetes mellitus, type 2) (ICD-10 - E11.9)05/04/2025symptomatic hypertension (ICD-10 - I10) Plan Of Treatment Pending Test Test Name Order Date UA (URINALYSIS, COMPLETE) 03/26/2025 UA (URINALYSIS, COMPLETE) 05/04/2025 ALBUMIN, BLOOD 05/04/2025 ALBUMIN, BLOOD 03/26/2025 MAGNESIUM 03/26/2025 MAGNESIUM 05/04/2025 CBC NO DIFF 05/04/2025 CBC NO DIFF 03/26/2025 PHOSPHORUS 03/26/2025 PHOSPHORUS 05/04/2025 PTH INTACT (PARATHYROID HORMONE) 025 URIC ACID 03/26/2025 URIC ACID 05/04/2025 VITAMIN D, 25 LEVEL (TOTAL) 03/26/2025 US Renals and Bladder 03/26/2025 RENAL PANEL 03/26/2025 MICROALBUMIN w SUPER[employer]OR P[employer]ING RATIO 03/26/2025 BMP (BASIC MET PANEL) w/eGFR CKD-EPI Next Appt Details Provider Name:Valerio Jauregui, 11/02/2025 02:40:00 PM, [address] [facility], [place], [address], Insurance Providers Payer Name Payer Address Payer Phone Subscriber Number Group Number Insured Name Patient Relationship to Insured Coverage Start Date Coverage End Date [place]IC[place] [address] [place] [address] [id number] Luna Villarreal - patient is the [id number] 2005[employer] [address] [address] [place], [place] [phone], VictorSelf - patient is the [id number] 2011 Medical (General) History Surgical History Surgery Date(Month/Year) nasal polyp excision ileostomyCT angiogram heart coronarycolostomycardiac valve replacement bronchoscopyappendectomy
--- OUTSIDE RECORDS SUMMARY | 2025-10-01 17:59 | XMS_ITS ---
Author Organization [facility] Address [address] [facility] [place] [address] Care Team Providers Care Gear Nicker Name Role Phone Suyapa Bo MD Unavailable Suyapa Bo MD Primary Care Provider [phone] Erika Chris DO Unavailable [phone] Yanelis Garcia NP Unavailable [phone] Alf Facility Transitional Care Management Status:Enrolled (Active) Start date:09/26/2025 Enrollment date:09/29/2025 Enrollment reason:Identified using hospital discharge data Overview Patient discharged from [facility] on 09/26. Patient admitted to [facility]. Please contact SNF facility for [facility] (inpt to SNF) within 48 hours. NameHermila Perera LPN(Responsible Staff)Licensed Practical [phone] Continued Care and Services Coordination
--- OUTSIDE RECORDS SUMMARY | 2025-10-01 18:00 | XMS_ITS | Clinical Summary ---
Author Organization [facility] Healthcare Address [address] [place] [address] Care Team Providers Care Promotions Manager Name Role Phone Suyapa Bo MD Unavailable Suyapa Bo MD Primary Care Provider [phone] Erika Chris DO Unavailable [phone] Yanelis Garcia INKER MACHINE Unavailable [phone] Allergies Active AllergyReactionsCriticalityNoted DietCvupobisFgythihrszzm49/13/2023 Other Reaction(s): muscle aches ApcfbxgkyoWunmd63/01/9669Ifevqfjxyudd01/13/2023 Other Reaction(s): muscle aches Medications MedicationSigDispense QuantityRefillsLast FilledStart DateEnd DateStatus omega-3 (fish oil) 1200 MG capsule Take 2 capsules by mouth every 12 (twelve) hoursActive Multiple Vitamins-Minerals (Vision Plus) capsule Take 1 capsule by mouth 1 (one) time each dayActive LUTEIN PO Take 1 tablet by mouth in the morning.Active albuterol HFA 90 mcg/act inhaler Inhale 1 puff every 4 (four) hours if needed for shortness of breath or wheezing Active aspirin 81 MG EC tablet Take 81 mg by mouth in the morning.5Active nitroglycerin (Nitrostat) 0.[address] 0.4 mg under the tongue every 5 (five) minutes if needed for chest pain 5Active tamsulosin (Flomax) 0.4 MG 24 hr capsule Take 0.4 mg by mouth in the morning.5Active atorvastatin (Lipitor) 20 MG tablet Indications:Type 2 diabetes mellitus without complication, without long-term current use of insulin (HCC)Take 1 tablet (20 mg) by mouth in the morning. 100 tablet ctive isosorbide mononitrate ER (Imdur) 30 MG 24 hr tablet Indications: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Take 1 tablet (30 mg) by mouth in the morning.01/26/2025 01/26/2026ctive ferrous sulfate (Fe Tabs) 325 (65 Fe) MG EC tablet Indications:Other iron deficiency anemia1 po qam on empty stomach with glass of orange juice. Do not crush, chew, or split. 90 tablet 5Active pantoprazole (Protonix) 40 MG EC tablet Indications:Other iron deficiency anemiaTake 1 tablet (40 mg) by mouth in the morning. Take before meals. Do not crush, chew, or split.. 90 tablet ctive empagliflozin (Jardiance) 25 MG Indications:Type 2 diabetes mellitus with hyperosmolarity without coma, without long-term current use of insulin ([facility])Take 1 tablet (25 mg) by mouth Daily 30 tablet ctive clopidogrel (Plavix) 75 MG tablet Indications: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Take 1 tablet (75 mg) by mouth in the morning. 100 tablet ctive Glucose Blood (Blood Glucose Test Strips 333) strip Indications:Type 2 diabetes mellitus without complication, without long-term current use of insulin ([facility])Apply 1 strip topically in the morning and 1 strip before bedtime. 100 strip 5Active metoprolol succinate XL (Toprol-XL) 50 MG 24 hr tablet Take 50 mg by mouth Daily5Active terazosin (Hytrin) 2 MG capsule Indications:Essential hypertensionTAKE 1 CAPSULE BY MOUTH AT BEDTIME 90 capsule 5Active montelukast (Singulair) 10 MG tablet Indications:Unspecified dementia, unspecified severity, without behavioral disturbance, psychotic disturbance, mood disturbance, and anxiety (HCC)TAKE 1 TABLET BY MOUTH EVERY DAY 90 tablet 5Active warfarin (Coumadin) 2 MG tablet 5Active torsemide (Demadex) 20 MG tablet Indications: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1 po every day , may take an extra tablet prn leg swelling shortness of breath 90 tablet 5Active donepezil (Aricept) 10 MG tablet Indications:Unspecified dementia, unspecified severity, without behavioral disturbance, psychotic disturbance, mood disturbance, and anxiety (HCC)TAKE 1 TABLET BY MOUTH EVERYDAY AT BEDTIME 90 tablet 5Active Trelegy Ellipta 100-62.5-25 MCG/ACT aerosol powder Indications:Chronic obstructive pulmonary disease, unspecified COPD type (HCC) INHALE 1 PUFF IN THE MORNING 180 each 516Active Active Problems ProblemNoted DateDiagnosed Date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 3b chronic kidney gtqkqec5908/07/2025 Assessment & Plan (08/07/2025 2:42 PM EDT): Stable monitor labs Orders: Comprehensive metabolic panel; Future CBC and differential; Future Uric acid; Future Magnesium; Future Phosphorus; Future Urinalysis with reflex microscopic (catheter); Future Protime-INR; Future B-type natriuretic peptide; Future Cardiorenal iqktweli88/07/2025holesterolosis of iakifmfuijq71/07/2025MI 23.0- 23.9, adult04/03/2025Localized edema04/03/2025MI 26.0-26.9,adult02/19/2025 Shortness of ykuefi7502/19/2025 Assessment & Plan (06/15/2025 5:15 PM EDT): Orders: XR chest 2 views; Future B-type natriuretic peptide; Future Basic metabolic panel; Future Bcdcvojbngnp47/07/2025NSVT (nonsustained ventricular tachycardia)01/26/2025 Pleural xkafoyak73/07/2025Steroid-induced sklfvgftuekba08/07/2025Urinary bibbkvzge87/07/2025ute non-ST elevation myocardial infarction (NSTEMI) 01/20/20256779Zzqgnmgopdqmzo99/01/2025High risk medication use01/20/2025Never smoked zoyzwnk9001/20/2025Postsurgical percutaneous transluminal coronary angioplasty (PTCA) egmadq4201/20/2025ute UTI06/03/2024KI (acute kidney injury)06/03/2024 Qvmatqhvz90/13/5468Aeohhf35/13/2024Encounter for prophylactic measures, /13/4188Yqwmpnffuevsvy16/13/2024Ileostomy tovmga4906/03/2024 Assessment & Plan (08/07/2025 2:42 PM EDT): Nausea & gcslulxj11/13/2024Skin fqykuc7406/03/2024Supratherapeutic INR06/03/2024 Memory loss04/08/2024erebral infarction, left xeowolotnz68/18/2024 Cerebrovascular gwvqzqu3304/08/2024ramps of lower fnzhbteuh74/18/2024TMJ pain dysfunction outcjyxe96/10/5132Yjoanggikdp84/10/2024Ulcerative wseyrsc4905/22/2023 Assessment & Plan (08/07/2025 2:42 PM EDT): stable Assessment & Plan (04/28/2025 10:47 PM EDT): stable uses colostomy Stage 3a chronic kidney uidrnmp2105/22/2023 Assessment & Plan (08/07/2025 2:42 PM EDT): Assessment & Plan (04/28/2025 10:47 PM EDT): stable Type 2 diabetes mellitus without complication, without long-term current use of wyrnsqu6605/22/2023 Assessment & Plan (08/07/2025 2:42 PM EDT): Good bs control on jardiance Assessment & Plan (04/27/2025 2:22 PM EDT): Lab Results Component Value Date HGBA1C 7.0 (H) 01/26/2025 Short-term memory loss05/22/2023ure scfnmedbhakkorhrqzgj06/01/2023Mitral valve aldtdmzovlcdt29/01/4057Swvyvzjwkcqr96/01/2023 Assessment & Plan (05/24/2023 4:18 PM EDT): Check labs today 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 /01/2023 Assessment & Plan (08/07/2025 2:42 PM EDT): Stable monitor Ileostomy nequeixlyct07/01/2023iabetic renal kzymbal5805/22/2023 Assessment & Plan (07/02/2025 3:25 PM EDT): Lab Results Component Value Date HGBA1C 7.0 (H) 01/26/2025 stable Alzheimer's qujpvkj5705/22/2023 Overview (05/24/2023): Managed by neurology Assessment & Plan (08/07/2025 2:42 PM EDT): Stable managed by neurology Assessment & Plan (07/02/2025 3:25 PM EDT): stable Chronic wpvszsv2005/22/2023therosclerotic heart disease of sokaogon coronary artery without angina /01/2023 Overview (05/24/2023): Managed by cardiology Assessment & Plan (08/07/2025 2:42 PM EDT): Stable recent visit with cardiology Orders: Protime-INR; Future B-type natriuretic peptide; Future Assessment & Plan (07/02/2025 3:25 PM EDT): Mild intermittent increase in swelling advised to take exta torsamide as needed for swelling Orders: torsemide (Demadex) 20 MG tablet; 1 po every day , may take an extra tablet prn leg swelling shortness of breath Aortic ejofvynw25/01/2023 Overview (05/24/2023): Yearly ct chest, Assessment & Plan (08/07/2025 2:42 PM EDT): stable 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 Skin around stoma is without irritation Abdominal uojpjgyzd80/04/2022Essential qacivkcjkzag85/06/2022 Assessment & Plan (08/07/2025 2:42 PM EDT): Good control Assessment & Plan (07/02/2025 3:25 PM EDT): Good control Chronic obstructive pulmonary pucmdge6407/27/2022 Assessment & Plan (08/07/2025 2:42 PM EDT): Stable not currently o2 dependant . Managed by pulmonology Assessment & Plan (07/02/2025 3:25 PM EDT): stable Impaired glucose egagzmzip99/25/2019 Assessment & Plan (08/07/2025 2:42 PM EDT): retirement current use of anticoagulant ajrkcfs0508/10/2019Ventricular premature wqgjzxrbybkupl30/27/2018Transient ischemic fmvrje3809/06/2016History of aortic valve clshkxdwihv88/16/2016 Overview (05/24/2023): Managed by cardiology Assessment & Plan (08/07/2025 2:42 PM EDT): History of cerebrovascular tboiualz33/06/2016 Assessment & Plan (08/07/2025 2:42 PM EDT): Statin not mlbiibfbi94/06/2016 Resolved Problems ProblemNoted DateDiagnosed DateResolved DateParietoalveolar pneumopathy /12/2022Moderate persistent allergic mtmosj34/12/2022Lung dkugdw86/12/2022H/O pqyfgwzmw11lucose intolerance ementiaSmall bowel obstruction due to alfqmlgdm42neumoniaortic valve disorder Encounters DateTypeDepartmentCare UolsMwzuogivxbs23/09/2025Patient Outreach [facility] [address] [place] [address] Macy Perera LPN 09/28/20259171Cqwkwo89/03/2025Patient Outreach [facility] [address] [place] [address] Rupinder Grace RN 09/06/2025External Result Encounter [facility] External Department Unsolicited Jagdish Strong, DO 09/06/2025External Result Encounter [facility] External Department Unsolicited Jagdish Strong, DO 08/28/2025External Result Encounter [facility] External Department Unsolicited Dieudonne Maldonado MD 08/27/2025Refill [facility] [address] [place] [address] Suyapa Bo MD Chronic obstructive pulmonary disease, unspecified COPD type (HCC)08/26/2025 External Result Encounter [facility] External Department Unsolicited Dieudonne Maldonado MD 08/25/2025Orders Only [facility] [address] [facility] [address] [place] [phone] Dieudonne Maldonado MD 08/24/2025External Result Encounter [facility] External Department Unsolicited Dieudonne Maldonado MD 08/24/2025External Result Encounter [facility] External Department Unsolicited Dieudonne Maldonado MD 08/22/2025External Result Encounter [facility] External Department Unsolicited Dieudonne Maldonado MD 08/21/2025External Result Encounter [facility] External Department Unsolicited Dieudonne Maldonado MD 08/21/2025External Result Encounter [facility] External Department Unsolicited Dieudonne Maldonado MD 08/03/2025Results Follow-Up [place] [address] [facility] [address] Nessa Palomo MA Comprehensive metabolic panel07/31/2025Orders Only [place] [address] [place] [address] Celine Anaya NP Elevated liver enzymes (Primary Dx)07/30/2025Results Follow-Up [place] [address] [facility] [place] [address] Suyapa Bo MD Comprehensive metabolic panel, CBC and differential, Uric acid, Additional followed-up results: 11:20 AM EDTOffice Visit [place] [address] [facility] [place] [address] Suyapa Bo MD Chronic obstructive pulmonary disease, unspecified COPD type (HCC) (Primary Dx); Essential hypertension; 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; 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 (HCC); Routine general medical examination at a health care facility; Other ulcerative colitis with complication (HCC); Stage 3a chronic kidney disease (CMS-HCC); Type 2 diabetes mellitus without complication, without long-term current use of insulin (HCC); 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 dysphagia; History of cerebrovascular accident; Alzheimer's disease (HCC); Aneurysm of ascending aorta without rupture; History of aortic valve replacement; Ileostomy status (HCC); Impaired glucose gchwehrbt41/08/2025amboo flowsheet [facility] [address] [place] [address] Suyapa Bo MD 07/29/20254431Ejafad00/06/2025Patient Outreach [address] [place] [phone] Rupinder Grace RN 10/02/2025Refill [facility] [address] [place] [phone] Sharon Cortez NP Unspecified dementia, unspecified severity, without behavioral disturbance, psychotic disturbance, mood disturbance, and anxiety (HCC)5Clinisync Result Encounter [facility] External Department Unsolicited Provider, Generic External Data 07/15/2025Telephone [facility] [address] [place] [facility] [place] [address] Suyapa Bo MD from Last 3 Months Immunizations ImmunizationAdministration DatesNext DueInfluenza, High Dose Seasonal, Preservative Free07/08/2024,08/23/2021Influenza, High-dose Seasonal, Quadrivalent, Preservative Free07/01/2025,07/05/2019,06/09/2018Influenza, injectable, quadrivalent, preservative free07/27/2022,07/27/2016Influenza, seasonal, injectable, preservative free07/05/2017,07/04/2015,07/22/2014 Pneumococcal Conjugate PCV 13007/04/2015Pneumococcal Polysaccharide PPSV23 07/13/2017 Family History Medical HistoryRelationNameCommentsHeart attackFatherHeart diseaseFatherCancer MotherRelationNameStatusCommentsFatherDeceasedMotherDeceased Social History Tobacco UseTypesPacks/DayYears UsedDateSmoking Tobacco: FormerCigarettes Tobacco Cessation:Counseling Given: Not Answered Alcohol UseStandard Drinks/WeekCommentsNot Currently0 (1 standard drink = 0.6 oz pure alcohol)caffeine: 0PHQ-2AnswerDate RecordedPatient Health Questionnaire-2 Vgkzq895Sex and Gender InformationValueDate RecordedSex Assigned at BirthNot on fileLegal LxwXlfy2601/03/2023 6:40 PM EDTGender IdentityNot on file Sexual OrientationNot on file Last Filed Vital Signs Vital SignReadingTime TakenCommentsBlood Awqxxufq037/6810 11:04 AM EDT Lrwyr9994 11:04 AM DKKPmxqiznqdzz64 ??C (96.8 ??F)06/15/2025 2:50 PM EDT Respiratory Jdqr5621 11:04 AM EDTOxygen Cxpletxcod181%07/29/2025 11:04 AM EDTInhaled Oxygen Concentration--Wsdrtd47.2 kg (187 lb 12.8 oz)07/29/2025 11:04 AM WQVEncwfy486.6 cm (6' 5 )07/29/2025 11:04 AM EDTBody Mass Index22.27 07/29/2025 11:04 AM EDT Plan of Treatment DateTypeDepartmentCare Team (Latest Contact Info)Rbnursjxhjl82/12/2025 9:30 AM ESTOffice Visit [facility] [address] [place] [phone] Dieudonne Maldonado MD [address] [address] 10/29/2025 8:00 AM ESTOffice Visit [facility] [place] [phone] Suyapa Bo MD [address] [place] [address] Health MaintenanceDue DateLast DoneCommentsDiabetes: Hemoglobin A1C07/28/2025 01/26/2025, 12/25/2024, 07/08/2024, Additional history existsCOVID-19 Vaccine ( season), 08/31/2023, 09/26/2021, Additional history existsDiabetes: Urine Protein Wxjqnfxov48/10/2024, 04/21/2025, 07/08/2024, Additional history existsDiabetes: Retinopathy Ldbphjhdn75/26/2027 04/16/2025, 03/21/2024, 2Pneumococcal Vaccine: 65+ YearsCompleted 07/13/2017, 07/04/2015Influenza TpxcqbhIivyrpyxg91/10/2025, 07/08/2024, 07/27/2022, Additional history exists Procedures Procedure NamePriorityDate/TimeAssociated DiagnosisCommentsHEPATIC FUNCTION VUBWWLogjype11/16/2025 5:30 AM EST COMPREHENSIVE METABOLIC RWOEQWlichop81/16/2025 5:30 AM EST DIFF AND SHAEcnqkfn61/16/2025 5:00 AM EST NM BMMDCGGLEDIYP73/07/2025 7:10 PM EST C-REACTIVE ZOEYSUUInyroia70/05/2025 3:42 AM EST HEPATIC FUNCTION CSAIHBqfgzjj84/05/2025 3:42 AM EST BASIC METABOLIC BWIWVBdxdqtm86/03/2025 5:12 AM EST HEMOGRAM CBC WITHOUT DIFF ([facility])Aalbihj6508/24/2025 5:12 AM EST HEMOGLOBIN AND HEMATOCRIT, URFSBQfrrq00/01/2025 3:55 PM EDT HEMOGLOBIN AND HEMATOCRIT, SVNDLUlpug94/31/2025 5:21 PM EDT ANAEROBIC JGNOOHJOrynjhx34/31/2025 2:25 PM EDT AEROBIC UGNOHZVMnsazzq57/31/2025 2:25 PM EDT GRAM QALFQIueenxs11/31/2025 2:25 PM EDT GENERAL COKBOIRZGJsizkla68/31/2025 1:57 PM EDTCOMPREHENSIVE METABOLIC PANEL Czorktw5807/31/2025 1:49 PM EDT Elevated liver enzymes MLXLQtirtbu26/08/2025 12:06 PM EDT URINALYSIS ZEWPOBPbacrih66/08/2025 12:06 PM EDT 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 (HCC) B-TYPE NATRIURETIC VXIBGGWAmsmlnc09/08/2025 11:50 AM EDT 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 (HCC) PROTHROMBIN TIME-LZSChxfbcc01/08/2025 11:50 AM EDT 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 (HCC) PHOSPHATE ( PHOSPHORUS)Vpajqou4407/29/2025 11:50 AM EDT 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 (HCC) KFASYLTUYPwemndl35/08/2025 11:50 AM EDT 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 (HCC) URIC WKVAShuzyss07/08/2025 11:50 AM EDT 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 (HCC) CBC (INCLUDES DIFF/PLT)Radxdbs5807/29/2025 11:50 AM EDT 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 (HCC) COMPREHENSIVE METABOLIC RODJZMirrghu41/08/2025 11:50 AM EDT 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 (HCC) TRANSTHORACIC ECHO (TTE) HPKAUWLP07/30/2025 11:52 AM EDT DIABETIC RETINOPATHY SCREENING - OU - BOTH YSNWAipflww49/26/2025 11:33 AM EDT HEMOGLOBIN V9ACtspipa95/07/2025 2:14 PM EDT Type 2 diabetes mellitus without complication, without long-term current use of insulin (HCC) MICROALBUMIN / CREATININE URINE VVWZBZkxkpiz07/17/2024 8:37 AM EDT Glucose intolerance (impaired glucose tolerance) from Last 3 Months or Most Recently Relevant to Health Maintenance Results * (ABNORMAL) Hepatic function panel (09/06/2025 5:30 AM EST) Only the most recent of2 resultswithin the time period is included. ComponentValueRef RangeTest MethodAnalysis TimePerformed AtPathologist Signature BILIRUBIN,DIRECT1.60(H)0.03 - 0.18 mg/dL09/06/2025 6:24 AM [facility] CtrBILIRUBIN,INDIRECT0.9mg/dL09/06/2025 6:24 AM [facility] CtrSpecimen (Source)Anatomical Location / LateralityCollection Method / VolumeCollection TimeReceived TimeOtherTopography unknown / Becfdql6809/06/2025 5:30 AM EST09/06/2025 5:46 AM EST Narrative Authorizing ProviderResult TypeResult StatusKristmj NOGUERA BLOOD ORDERABLESFinal ResultPerforming OrganizationAddressCity/State/ZIP CodePhone Number [facility] [address] [place] [address], [facility] [address] [place] [address] * (ABNORMAL) Comprehensive metabolic panel (09/06/2025 5:30 AM EST) Only the most recent of3 resultswithin the time period is included. ComponentValueRef RangeTest MethodAnalysis TimePerformed AtPathologist Signature Tjjiald571(H)70 - 100 mg/dL09/06/2025 6:24 AM [facility]tr Comment: Random Glucose Reference Range is dependent on time and content of last meal. Glucose of more than 200 mg/dL in a nonstressed, ambulatory subject supports the diagnosis of Diabetes Mellitus. ADA recommended reference range BUN66(H)7 - 25 mg/dL09/06/2025 6:24 AM [facility]tr CREATININE2.05(H)0.70 - 1.30 mg/dL09/06/2025 6:24 AM [facility] CtrESTIMATED GFR31.6280109/06/2025 6:24 AM [facility] RodYgdwie022(L)136 - 145 mmol/L111/06/2024 6:24 AM [facility] CtrPotassium, Bld5.2(H)3.5 - 5.1 mmol/L111/06/2024 6:24 AM [facility] BkqGmnizuvn74932 - 107 mmol/L111/06/2024 6:24 AM [facility] CtrCarbon Ovauhki58.7(L)21.0 - 31.0 mmol/L111/06/2024 6:24 AM [facility] CtrAnion Gap10.56.0 - 15.011 6:24 AM [facility] CtrCalcium7.9(L)8.6 - 10.3 mg/dL09/06/2025 6:24 AM [facility] CtrTOTAL PROTEIN5.3(L)6.4 - 8.9 g/dL09/06/2025 6:24 AM [facility] CtrALBUMIN LEVEL2.8(L)3.5 - 5.7 g/dL 09/06/2025 6:24 AM [facility] CtrGLOBULIN2.5g/dL09/06/2025 6:24 AM [facility] CtrALBUMIN/GLOBULIN RATIO1.111 6:24 AM [facility] CtrBILIRUBIN,TOTAL2.5(H)0.3 - 1.0 mg/dL 09/06/2025 6:24 AM [facility] CtrComment: Samples from patients who have taken Naproxen have shown spurious elevation in Total Bilirubin levels. ??A metabolite of Naproxen, O-desmethylnaproxen, has been shown to interfere with the Amy method for measuring Total Bilirubin. ASPARTATE AMINO ZMBBSAJWNDT7018 - 39 U/L111/06/2024 6:24 AM [facility] CtrALANINE FBQNCBJNSCZTWPQK958 - 52 U/L111/06/2024 6:24 AM [facility] CtrALKALINE KXAGXHXUJJK746(H)34 - 104 U/L111/06/2024 6:24 AM [facility] CtrCREATININE CLR CALC COSTRJGT07.80111/06/2024 6:24 AM [facility] CtrSpecimen (Source)Anatomical Location / LateralityCollection Method / VolumeCollection TimeReceived TimeOtherTopography unknown / Oaqygwl3309/06/2025 5:30 AM EST09/06/2025 5:46 AM EST Narrative Authorizing ProviderResult TypeResult StatusFredric H Itzkoclovis [facility] BLOOD ORDERABLESFinal ResultPerforming OrganizationAddressCity/State/ZIP CodePhone Number [facility] [address] [place] [address], [facility] [address] [place] [address] * (ABNORMAL) DIFF AND CBC (09/06/2025 5:00 AM EST)ComponentValueRef RangeTest MethodAnalysis TimePerformed AtPathologist SignatureWBC7.14.1 - 10.5 [CFU]/mL 09/06/2025 5:53 AM [facility] CtrUNCORRECTED WHITE BLOOD COUNT7.14.1 - 10.5 10*3/uL09/06/2025 5:53 AM [facility] RBC3.29(L)3.90 - 5.60 10*6/uL09/06/2025 5:53 AM [facility] CtrHEMOGLOBIN8.6(L)13.0 - 17.0 g/dL09/06/2025 5:53 AM [facility] WplVKESNOZKPF44.7(L)38.8 - 50.0 %09/06/2025 5:53 AM [facility] YdgLTI60.3(L)83.5 - 101 fL09/06/2025 5:53 AM [facility] AjhNRO80.1(L)27.5 - 35.2 pg09/06/2025 5:53 AM [facility] SovCNJE26.1(L)32.5 - 35.6 g/dL09/06/2025 5:53 AM [facility] CtrRED CELL DISTRIBUTION WIDTH, RDW20.5(H)12.0 - 14.8 % 09/06/2025 5:53 AM [facility] CtrPLATELET WABOI022(L)150 - 450 10*3/uL09/06/2025 5:53 AM [facility] CtrMEAN PLATELET VOLUME, MPV7.96.6 - 10.1 fL09/06/2025 5:53 AM [facility] CtrSEGMENTED WTVCUOHECEC39(H)50 - 70 %09/06/2025 6:30 AM [facility] CtrLYMPHOCYTES5(L)18 - 42 %09/06/2025 6:30 AM [facility] CtrMONOCYTES1(L)2 - 11 %09/06/2025 6:30 AM [facility] QjiFJXXPPKBPSP73 - 3 %09/06/2025 6:30 AM [facility] TbaFSNLSXQAYECZWVatjjlce05/16/2025 6:30 AM [facility] Ctr JGBRDTOPECBAYTqnriafs64/16/2025 6:30 AM [facility] Ctr HRWOFJEYDRFOAMAmlqkp91/16/2025 6:30 AM [facility] Ctr ZPKBTOUXVRGOFfjvtjun94/16/2025 6:30 AM [facility] Ctr NKAIFFNWAQVMDqawfl74/16/2025 6:30 AM [facility] Ctr QKHZOBDARHQdflci12/16/2025 6:30 AM [facility] CtrCRENATED OQSAeltcr41/16/2025 6:30 AM [facility] CtrTOXIC GRANULATION Sgngkchf96/16/2025 6:30 AM [facility] CtrTOXIC VACUOLATION Wuzjpe3009/06/2025 6:30 AM [facility] CtrPLATELET ESTIMATE IarjiitcbOlusre61/16/2025 6:30 AM [facility] CtrPLATELET LDKAOFZXWBEovnypOqqunq15/16/2025 6:30 AM [facility]tr Specimen (Source)Anatomical Location / LateralityCollection Method / Volume Collection TimeReceived TimeBlood (Blood)09/06/2025 5:00 AM EST09/06/2025 5:46 AM EST Narrative Authorizing ProviderResult TypeResult StatusFredric H Itzabran DOLAB BLOOD ORDERABLESFinal ResultPerforming OrganizationAddressCity/State/ZIP CodePhone Number [facility] [address] [place] [address], [facility] [address] [place] [address] * NM hepatobiliary (08/28/2025 7:10 PM EST)Anatomical RegionLateralityModality BodyNuclear MedicineSpecimen (Source)Anatomical Location / Laterality Collection Method / VolumeCollection TimeReceived Time08/28/2025 7:10 PM EST Impressions 08/28/2025 7:17 PM EST Homogeneous uptake of the liver with uptake identified in the drain. No uptake identified within the common bile duct or bowel at the 2 hour delayed image. ??Consideration for assessment of the common bile duct to exclude obstruction. ??This may be further assessed with MRI of the abdomen with MRCP and/or ERCP. ??No uptake to suggest a bile leak. ? Impression dictated by: Bam Retana M.D. ??08/28/2025 7:15 PM ? Dictation Location: RADIO-PC-20 ? Transcribed By: ? PWS ?08/28/251914 ? Dictated By: ?Bam Retana DO ?08/28/251909 ? Signed By: <Electronically signed by Bam Retana, DO in OV> ? 08/28/251914 Narrative 08/28/2025 7:17 PM EST [facility] ?[facility] [place] ?[address] ? [place] [address] ?Nuclear Medicine Report ? Signed ? Patient: Davis,Cordell P ?MR#: [id number] ?? 31 ? : 1940 ?Acct:[id number] ? Age/Sex: 85 / M ?ADM Date: 08/18/25 ? Loc: 3T ?Room: ??1O8780-7 ?Type: ADM IN ?? Attending Dr: Brian Johnston DO ?? Copies to: Dieudonne Maldonado MD ?? Brian Johnston, DO ?? Bam Retana DO ? Ordering Provider: Dieudonne Maldonado MD ?? Date of Service: 08/28/25 ?? NM/NM hepatobiliary wo pharm: rule out bile leak ? Nuclear Medicine Hepatobiliary imaging ? TECHNIQUE: 6.6mCi of technetium 99m labeled mebrofenin was administered intravenously. ??Sequential planar imaging of the upper abdomen performed. ? HISTORY: Abdominal pain. ??Findings postop laparoscopic cholecystectomy. ? COMPARISON:CT of the abdomen and pelvis 08/25/2025 drinks thousand 2 within the gallbladder fossa. ? Homogeneous uptake of the liver identified. ??This persist at the 2 hour film. ??There is uptake identified in the drain. ??There is no uptake identified in the common bile duct or the bowel. ? NM/NM hepatobiliary wo pharm ?? Procedure Note Radiology, Radiologist, - 08/28/2025 [facility] [place] [address] [place] [address] Nuclear Medicine Report Signed Patient: Cordell Davis PMR#: [id number] 30 : 1Acct:[id number] Age/Sex: 85 / MADM Date: 08/18/25 Loc: 3T Room: [id number]: ADM IN Attending Dr: Brian Johnston DO Copies to: MD Brian Garland DO Ward, Jeffrey S DO Ordering Provider: Dieudonne Maldonado MD Date of Service: 08/28/25 NM/NM hepatobiliary wo pharm: rule out bileleak Nuclear Medicine Hepatobiliary imaging TECHNIQUE: 6.6mCi of technetium 99m labeled mebrofenin was administered intravenously. Sequential planar imaging of the upper abdomen performed. HISTORY: Abdominal pain. Findings postop laparoscopic cholecystectomy. COMPARISON:CT of the abdomen and pelvis 08/25/2025 drinks thousand 2 withinthe gallbladder fossa. Homogeneous uptake of the liver identified. This persist at the 2 hourfilm. There is uptake identified in the drain. There is no uptake identified in the common bileduct or the bowel. NM/NM hepatobiliary wo pharm IMPRESSION: Homogeneous uptake of the liver with uptake identified in the drain. Nouptake identified within the common bile duct or bowel at the 2 hour delayedimage. Consideration for assessment of the common bile duct to exclude obstruction. This may befurther assessed with MRI of the abdomen with MRCP and/or ERCP. No uptake to suggest a bile leak. Impression dictated by: Bam Retana M.D. 08/28/2025 7:15 PM Dictation Location: [place] [address] Transcribed By: [facility] 08/28/251914 Dictated By: Bam Retana DO 08/28/251909 Signed By: <Electronically signed by Bam Retana DO in OV> 08/28/251914 Authorizing ProviderResult TypeResult StatusAlbert KAMLA Nichole DE PROCEDURES Final Result * (ABNORMAL) C-reactive protein (08/26/2025 3:42 AM EST)ComponentValueRef Range Test MethodAnalysis TimePerformed AtPathologist SignatureC-REACTIVE PROTEIN 11.4(H)0.0 - 0.5 mg/dL08/26/2025 5:07 AM ESTSelect [facility] Specimen (Source)Anatomical Location / LateralityCollection Method / Volume Collection TimeReceived TimeOtherTopography unknown / Qngewor1308/26/2025 3:42 AM EST08/26/2025 4:31 AM EST Narrative Authorizing ProviderResult TypeResult StatusBrian Johnston MDMEADOWBROOK RE[facility]IL[facility] BLOOD ORDERABLESFinal ResultPerforming OrganizationAddressCity/State/ZIP CodePhone Number [address] [address], [facility] [address] [place] [address] * (ABNORMAL) HEMOGRAM CBC WITHOUT DIFF ([facility]) (08/24/2025 5:12 AM EST)Component ValueRef RangeTest MethodAnalysis TimePerformed AtPathologist SignatureWBC9.4 4.1 - 10.5 [CFU]/mL08/24/2025 5:35 AM [facility] CtrRBC3.80 (L)3.90 - 5.60 10*6/uL08/24/2025 5:35 AM [facility] Ctr HEMOGLOBIN9.9(L)13.0 - 17.0 g/dL08/24/2025 5:35 AM [facility] IwpMDYILVTEGL43.4(L)38.8 - 50.0 %08/24/2025 5:35 AM [facility] PusXMP66.0(L)83.5 - 101 fL08/24/2025 5:35 AM [facility] NgoUIV76.2(L)27.5 - 35.2 pg08/24/2025 5:35 AM [facility] EznZVUA06.732.5 - 35.6 g/dL08/24/2025 5:35 AM [facility] CtrRED CELL DISTRIBUTION WIDTH, RDW22.0(H)12.0 - 14.8 % 08/24/2025 5:35 AM [facility] CtrPLATELET OTNFV567004 - 450 10*3/uL08/24/2025 5:35 AM [facility] CtrMEAN PLATELET VOLUME, MPV8.26.6 - 10.1 fL08/24/2025 5:35 AM [facility] CtrSpecimen (Source)Anatomical Location / LateralityCollection Method / Volume Collection TimeReceived TimeBlood (Blood)08/24/2025 5:12 AM EST08/24/2025 5:26 AM EST Narrative Authorizing ProviderResult TypeResult StatusAlbert Maldonado V, MDLAB BLOOD ORDERABLESFinal ResultPerforming OrganizationAddressCity/State/ZIP CodePhone Number [facility] [address] [place] [address], [facility] [address] [place] [address] * (ABNORMAL) Basic metabolic panel (08/24/2025 5:12 AM EST)ComponentValueRef RangeTest MethodAnalysis TimePerformed AtPathologist EfryioiusFzomdqh608(H)70 - 100 mg/dL08/24/2025 5:51 AM [facility] CtrComment: Random Glucose Reference Range is dependent on time and content of last meal. Glucose of more than 200 mg/dL in a nonstressed, ambulatory subject supports the diagnosis of Diabetes Mellitus. ADA recommended reference range BUN92(H)7 - 25 mg/dL08/24/2025 5:51 AM [facility] Ctr CREATININE2.85(H)0.70 - 1.30 mg/dL08/24/2025 5:51 AM [facility] CtrESTIMATED GFR21.2885408/24/2025 5:51 AM [facility] HxaVcshdw384(L)136 - 145 mmol/L110/24/2024 5:51 AM [facility] CtrPotassium, Bld4.63.5 - 5.1 mmol/L110/24/2024 5:51 AM [facility] IutJtzajziz70403 - 107 mmol/L110/24/2024 5:51 AM [facility] CtrCarbon Knoagfe12.3(L)21.0 - 31.0 mmol/L110/24/2024 5:51 AM [facility] CtrAnion Gap12.36.0 - 15.011 5:51 AM [facility] CtrCalcium7.7(L)8.6 - 10.3 mg/dL08/24/2025 5:51 AM [facility] CtrCREATININE CLR CALC QOIZHTON64. 5:51 AM [facility] CtrSpecimen (Source)Anatomical Location / LateralityCollection Method / VolumeCollection TimeReceived TimeOtherTopography unknown / Spieqcu4808/24/2025 5:12 AM EST08/24/2025 5:26 AM EST Narrative Authorizing ProviderResult TypeResult CHUCKIE Jalloh BLOOD ORDERABLESFinal ResultPerforming OrganizationAddressCity/State/ZIP CodePhone Number [facility] [address] [place] [address], [facility] [address] [place] [address] * (ABNORMAL) Hemoglobin and hematocrit, blood (08/22/2025 3:55 PM EDT) Only the most recent of2 resultswithin the time period is included. ComponentValueRef RangeTest MethodAnalysis TimePerformed AtPathologist Signature MOURTOGIRM32.1(L)13.0 - 17.0 g/dL08/22/2025 4:09 PM [facility] ZlyUFLSEGQTKE79.6(L)38.8 - 50.0 %08/22/2025 4:09 PM [facility] CtrSpecimen (Source)Anatomical Location / LateralityCollection Method / VolumeCollection TimeReceived TimeBlood (Blood)08/22/2025 3:55 PM EDT 08/22/2025 3:59 PM EDT Narrative Authorizing ProviderResult TypeResult StatusCHUCKIE Lozano BLOOD ORDERABLESFinal ResultPerforming OrganizationAddressCity/State/ZIP CodePhone Number [facility] [address] [place] [address], [facility] [address] [place] [address] * ANAEROBIC CULTURE (08/21/2025 2:25 PM EDT)ComponentValueRef RangeTest Method Analysis TimePerformed AtPathologist SignatureFRMC NOTENo Anaerobes Isolated 3 Days08/24/2025 11:07 AM [facility] CtrSpecimen (Source) Anatomical Location / LateralityCollection Method / VolumeCollection Time Received TimeBile (Bile)08/21/2025 2:25 PM EDT1 3:29 PM EDT Narrative Authorizing ProviderResult TypeResult CHUCKIE Jalloh BLOOD ORDERABLESFinal ResultPerforming OrganizationAddressCity/State/ZIP CodePhone Number [facility] [address] [place] [address], [facility] [address] [place] [address] * AEROBIC CULTURE (08/21/2025 2:25 PM EDT)ComponentValueRef RangeTest Method Analysis TimePerformed AtPathologist SignatureFRMC NOTENo Growth 2 Days 08/23/2025 10:18 AM [facility] CtrSpecimen (Source) Anatomical Location / LateralityCollection Method / VolumeCollection Time Received TimeBile (Bile)08/21/2025 2:25 PM EDT1 3:29 PM EDT Narrative Authorizing ProviderResult TypeResult CHUCKIE Jalloh BLOOD ORDERABLESFinal ResultPerforming OrganizationAddressCity/State/ZIP CodePhone Number [address] [address], [facility] [address] [place] [address] * (ABNORMAL) Gram stain (08/21/2025 2:25 PM EDT)ComponentValueRef RangeTest MethodAnalysis TimePerformed AtPathologist SignatureGRAM STAINRare White Blood Cells(A)08/22/2025 2:19 PM [facility] CtrGRAM STAINNo Bacteria Seen08/22/2025 2:19 PM [facility] CtrSpecimen (Source)Anatomical Location / LateralityCollection Method / VolumeCollection TimeReceived TimeBile (Bile)08/21/2025 2:25 PM EDT1 3:29 PM EDT Narrative Authorizing ProviderResult TypeResult CHUCKIE Jalloh MICROBIOLOGY - GENERAL ORDERABLESFinal ResultPerforming OrganizationAddressty/State/ZIP CodePhone Number [address] [address], [facility] [address] [place] [address] * GENERAL PATHOLOGY (08/21/2025 1:57 PM EDT) Narrative Authorizing ProviderResult TypeResult MARCE JallohLINISYNCFinal Result * NOTE (07/29/2025 12:06 PM EDT)ComponentValueRef RangeTest MethodAnalysis Time Performed AtPathologist SignatureNOTEQUESTComment: This urine was analyzed for the presence of WBC, RBC, bacteria, casts, and other formed elements. Only those elements seen were reported. Specimen (Source)Anatomical Location / LateralityCollection Method / Volume Collection TimeReceived Time07/29/2025 12:06 PM EDT1 12:07 PM EDT Narrative Resulting Agency Comment Performing Organization Information ?Site ID: QPT ?Name: [facility] ?Address: [address] [place] [address], [address] [place] [address] ?Director: Agustín Galvan MD Authorizing ProviderResult TypeResult Julieta Bo MDQUESTFinal Result Performing OrganizationAddressCity/State/ZIP CodePhone Number [facility] * (ABNORMAL) Urinalysis with reflex microscopic (catheter) (07/29/2025 12:06 PM EDT)ComponentValueRef RangeTest MethodAnalysis TimePerformed AtPathologist SignatureCOLORYELLOWYELLOWQUESTAPPEARANCECLEARCLEARQUESTSPECIFIC GRAVITY1.010 1.001 - 1.035QUESTPH< OR = 5.0(A)5.0 - 8.8MSSZMGOIEKNW5+(A)NEGATIVEQUEST BILIRUBINNEGATIVENEGATIVEQUESTKETONESNEGATIVENEGATIVEQUESTOCCULT BLOODNEGATIVE NEGATIVEQUESTPROTEINNEGATIVENEGATIVEQUESTNITRITENEGATIVENEGATIVEQUESTLEUKOCYTE ESTERASE1+(A)MBPXCNWJLOZJVESU31-99(A)< OR = 5 /HPFQUESTRBCNONE SEEN< OR = 2 /HPFQUESTSQUAMOUS EPITHELIAL CELLS0-5< OR = 5 /HPFQUESTBACTERIANONE SEENNONE SEEN /HPFQUESTHYALINE CAST6-10(A)NONE SEEN /LPFQUESTSpecimen (Source) Anatomical Location / LateralityCollection Method / VolumeCollection Time Received TimeUrineUrine specimen from urinary conduit / Urthuvh5407/29/2025 12:06 PM EDT1 12:07 PM EDT Narrative Resulting Agency Comment Performing Organization Information ?Site ID: QPT ?Name: [facility] ?Address: [address] [place] [address], [address] [place] [address] ?Director: Agustín Galvan MD Authorizing ProviderResult TypeResult Julieta Bo MDLAB URINE ORDERABLES Final ResultPerforming OrganizationAddressCity/State/ZIP CodePhone Number [facility] * (ABNORMAL) Protime-INR (07/29/2025 11:50 AM EDT)ComponentValueRef RangeTest MethodAnalysis TimePerformed AtPathologist SignatureINR1.9(H)QUESTComment: Reference Range ? 0.9-1.1 Moderate-intensity Warfarin Therapy 2.0-3.0 Higher-intensity Warfarin Therapy ?? 3.0-4.0 PT19.4(H)9.0 - 11.5 secQUESTComment: For additional information, please refer to http://education.Mojeek/faq/GOQ733 (This link is being provided for informational/ educational purposes only.) Specimen (Source)Anatomical Location / LateralityCollection Method / Volume Collection TimeReceived TimeBloodVenous blood specimen / Bbatrej9207/29/2025 11:50 AM EDT1 11:51 AM EDT Narrative [facility] - 07/30/2025 9:57 AM EDT MULTIPLE COLLECTION TIMES FOR SAME TEST TYPE. Resulting Agency Comment Performing Organization Information ?Site ID: QPT ?Name: [facility] ?Address: [address] [place] [address], [address] [place] [phone] ?Director: Agustín Galvan MD Authorizing ProviderResult TypeResult StatusSuyapa NOGUERA BLOOD ORDERABLES Final ResultPerforming OrganizationAddressCity/State/ZIP CodePhone Number [facility] * (ABNORMAL) CBC and differential (07/29/2025 11:50 AM EDT)ComponentValueRef RangeTest MethodAnalysis TimePerformed AtPathologist SignatureWHITE BLOOD CELL COUNT3.93.8 - 10.8 Thousand/uLQUESTRED BLOOD CELL COUNT4.674.20 - 5.80 Million/dGVQQABACEIGHKFXY03.8(L)13.2 - 17.1 g/cCLSVNFNATETUXDCM12.738.5 - 50.0 %FTPRRNKZ72.080.0 - 100.0 iOQNSNYIBS13.3(L)27.0 - 33.0 slBRKURMTZA48.7(L)32.0 - 36.0 g/dLQUESTComment: For adults, a slight decrease in the calculated MCHC value (in the range of 30 to 32 g/dL) is most likely not clinically significant; however, it should be interpreted with caution in correlation with other red cell parameters and the patient's clinical condition. RDW18.8(H)11.0 - 15.0 %QUESTPLATELET LGEBJ467(L)140 - 400 Thousand/uLQUESTMPV 10.27.5 - 12.5 fLQUESTABSOLUTE NEUTROPHILS2,2271,500 - 7,800 cells/uLQUEST ABSOLUTE FIZYSEVNQUD865(L)850 - 3,900 cells/uLQUESTABSOLUTE JTAGDUBGG699749 - 950 cells/uLQUESTABSOLUTE EAUQCQNQWXO74156 - 500 cells/uLQUESTABSOLUTE BASOPHILS 510 - 200 cells/oNXIXDNRFAWXVSFCCE31.1%RSXQVZWDWIPYAUKA96.6%HBZBYQFEGEZKKM71.7% QUESTEOSINOPHILS3.3%QUESTBASOPHILS1.3%QUESTSpecimen (Source)Anatomical Location / LateralityCollection Method / VolumeCollection TimeReceived TimeBloodVenous blood specimen / Uivafpa8907/29/2025 11:50 AM EDT1 11:51 AM EDT Narrative [facility] - 07/30/2025 9:57 AM EDT MULTIPLE COLLECTION TIMES FOR SAME TEST TYPE. Resulting Agency Comment Performing Organization Information ?Site ID: QPT ?Name: [facility] ?Address: [address] [place] [address], [address] [place] [phone] ?Director: Agustín Galvan MD Authorizing ProviderResult TypeResult StatusSuyapa Bo MDLAB BLOOD ORDERABLES Final ResultPerforming OrganizationAddressCity/State/ZIP CodePhone Number [facility] * Uric acid (07/29/2025 11:50 AM EDT)ComponentValueRef RangeTest MethodAnalysis TimePerformed AtPathologist SignatureURIC ACID6.14.0 - 8.0 mg/dLQUESTComment: Therapeutic target for gout patients: <6.0 mg/dL ?? Specimen (Source)Anatomical Location / LateralityCollection Method / Volume Collection TimeReceived TimeBloodVenous blood specimen / Oqzilbn6807/29/2025 11:50 AM EDT1 11:51 AM EDT Narrative [facility] - 07/30/2025 9:57 AM EDT MULTIPLE COLLECTION TIMES FOR SAME TEST TYPE. Resulting Agency Comment Performing Organization Information ?Site ID: QPT ?Name: [facility] ?Address: [address] [place] [address], [address] [place] [address] ?Director: Agustín Galvan MD Authorizing ProviderResult TypeResult StatusSuyapa Bo MDMEADOWBROOK REHABILIT[facility] BLOOD ORDERABLES Final ResultPerforming OrganizationAddSelect Specialty Hospital - Johnstownty/[facility] CodePhone Number [facility] * (ABNORMAL) Phosphorus (07/29/2025 11:50 AM EDT)ComponentValueRef RangeTest MethodAnalysis TimePerformed AtPathologist SignaturePHOSPHATE ( PHOSPHORUS) 4.4(H)2.1 - 4.3 mg/dLQUESTSpecimen (Source)Anatomical Location / Laterality Collection Method / VolumeCollection TimeReceived TimeBloodVenous blood specimen / Bqljvmu3307/29/2025 11:50 AM EDT1 11:51 AM EDT Narrative [facility] - 07/30/2025 9:57 AM EDT MULTIPLE COLLECTION TIMES FOR SAME TEST TYPE. Resulting Agency Comment Performing Organization Information ?Site ID: QPT ?Name: [facility] ?Address: [address] [place] [address], [address] [place] [address] ?Director: Agustín Galvan MD Authorizing ProviderResult TypeResult Julieta Bo MDMEADOWBROOK RE[facility] BLOOD ORDERABLES Final ResultPerforming [facility] DepartmentAddK[facility] CodePhone Number [facility] * (ABNORMAL) B-type natriuretic peptide (07/29/2025 11:50 AM EDT)ComponentValue Ref RangeTest MethodAnalysis TimePerformed AtPathologist SignatureB TYPE NATRIURETIC PEPTIDE (BNP)981(H)<100 pg/mLQUESTComment: BNP levels increase with age in the general population with the highest values seen in individuals greater than 75 years of age. Reference: J. Am. Gloria. Cardiol. 2002; 40:976-982. Specimen (Source)Anatomical Location / LateralityCollection Method / Volume Collection TimeReceived TimeBloodVenous blood specimen / Yboiyam5907/29/2025 11:50 AM EDT1 11:51 AM EDT Narrative [facility] - 07/30/2025 9:57 AM EDT MULTIPLE COLLECTION TIMES FOR SAME TEST TYPE. Resulting Agency Comment Performing Organization Information ?Site ID: QPT ?Name: [facility] ?Address: [address] [place] [address] ?Director: Agustín Galvan MD Authorizing ProviderResult TypeResult Julieta Bo MDLAB BLOOD ORDERABLES Final ResultPerforming OrganizationAddressCity/State/[facility] CodePhone Number [facility] * Magnesium (07/29/2025 11:50 AM EDT)ComponentValueRef RangeTest MethodAnalysis TimePerformed AtPathologist SignatureMAGNESIUM2.31.5 - 2.5 mg/dLQUESTSpecimen (Source)Anatomical Location / LateralityCollection Method / VolumeCollection TimeReceived TimeBloodVenous blood specimen / Qvyuerw0007/29/2025 11:50 AM EDT 07/29/2025 11:51 AM EDT Narrative [facility] - 07/30/2025 9:57 AM EDT MULTIPLE COLLECTION TIMES FOR SAME TEST TYPE. Resulting Agency Comment Performing Organization Information ?Site ID: QPT ?Name: [facility] ?Address: [address] [place] [address] ?Director: Agustín Galvan MD Authorizing ProviderResult TypeResult Julieta Bo MDLAB BLOOD ORDERABLES Final ResultPerforming OrganizationAddressCity/[facility]/ZIP CodePhone Number [facility] * Transthoracic echo (TTE) complete (07/21/2025 11:52 AM EDT)Anatomical Region LateralityModalityUltrasoundSpecimen (Source)Anatomical Location / Laterality Collection Method / VolumeCollection TimeReceived Time07/21/2025 11:52 AM EDT Narrative 07/23/2025 6:45 PM EDT ?[address], [address] [place] [id number] ? TRANSTHORACIC ECHOCARDIOGRAM REPORT Patient Name: ? CORDELL Pillai DAVIS ?Reading Physician: ?[id number] Snyder ?IbrahimMD, FACC Study Date: ? 07/21/2025 ? Ordering Provider: ?[id number] GARETT K ?MARIO MRN/PID: ?[id number] ?Fellow: Accession#: ? [id number] ?Nurse: Date of /Age: ??1940 / 85 ?Ward Secretary: ?Brenna Golden RDCS ?years Gender Assigned at ??M ? Additional Staff: : Height: ? 195.58 cm ? Admit Date: Weight: ? 90.72 kg ?Admission Status: ? Outpatient BSA / BMI: ?2.24 m2 / 23.72 ? Department Location: ??[facility] ?kg/m2 ? 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 Aortic aneurysm repair CPT Codes: ? Echo Complete w Full Doppler-[id number] Study Detail: The following Echo studies were [...] aortic valve area by VTI is 2.54 cm?? with a peak velocity of 1.23 m/s. [...] ?Normal Ranges: RVOT Vmax: ?0.51 m/s (0.6-0.9m/s) MN Vmax: ?2.24 m/s AORTA: Asc Ao Diam 3.85 cm [id number] Claudio Gar MD, [facility] Electronically signed on 07/23/2025 at 6:45:48 PM Final CONCLUSIONS: 1. Left ventricular ejection fraction is [...] IVC inspiratory collapse is not well visualized. Procedure Note Radiology, Radiologist, MD - 07/23/[address], [address], [place] [address] TRANSTHORACIC ECHOCARDIOGRAM REPORT Patient Name: CORDELL Freya DAVIS Reading Physician: [id number] Gar MD,[facility] Study Date: 07/21/2025 Ordering Provider: [id number] TAYLOR MARIO MRN/PID: [id number] Fellow: Nurse: Date of /Age: 5 1940 Ward Secretary: Brenna olmstead Gender Assigned at M Additional Staff: : Height: 195.58 cm Admit Date: Weight: 90.72 kg Admission Status: Outpatient BSA / BMI: 2.24 m2 / 23.72 Department Location: [facility] kg/m2 [place] Blood Pressure: 110 /58 mmHg Study Type: TRANSTHORACIC ECHO (TTE) COMPLETE Diagnosis/ICD: Localized edema-R60.0; Presence of prosthetic heartvalve-Z95.2 Indication: Non-sustained V-tach, CKD, CAD, HTN, Edema, Murmur, PTCA,CT, Aortic aneurysm repair CPT Codes: Echo Complete w Full Doppler-99900 Study Detail: The following Echo studies were [...] The aortic valve area byVTI is 2.54 cm?? with a peak velocity of 1.23 m/s. [...] Normal Ranges: RVOT Vmax: 0.51 m/s (0.6-0.9m/s) MN Vmax: 2.24 m/s AORTA: Asc Ao Diam 3.85 cm [id number] Claudio Gar MD, FACC Electronically signed on 07/23/2025 at 6:45:48 PM Final CONCLUSIONS: 1. Left ventricular ejection fraction is [...] is not well visualized. Authorizing ProviderResult TypeResult StatusGeneric External Data ProviderCV ECHO PROCEDURESFinal Result * Diabetic Retinopathy Screening - OU - Both Eyes (04/16/2025 11:33 AM EDT) Anatomical RegionLateralityModalityHeadOther Narrative Authorizing ProviderResult TypeResult StatusSuyapa Bo MDOPHTH PHOTOGRAPHY Final Result * (ABNORMAL) Hemoglobin A1c (01/26/2025 2:14 PM EDT)ComponentValueRef RangeTest MethodAnalysis TimePerformed AtPathologist SignatureHemoglobin A1C7.0(H)<5.7 % of total HgbQUESTComment: For someone without known diabetes, a hemoglobin A1c value of 6.5% or greater indicates that they may have diabetes and this should be confirmed with a follow-up test. For someone with known diabetes, a value <7% indicates that their diabetes is well controlled and a value greater than or equal to 7% indicates suboptimal control. A1c targets should be individualized based on duration of diabetes, age, comorbid conditions, and other considerations. Currently, no consensus exists regarding use of hemoglobin A1c for diagnosis of diabetes for children. Specimen (Source)Anatomical Location / LateralityCollection Method / Volume Collection TimeReceived TimeBloodVenous blood specimen / Pszurks8301/26/2025 2:14 PM EDT01/26/2025 2:15 PM EDT Narrative Resulting Agency Comment Performing Organization Information ?Site ID: QPT ?Name: [facility] ?Address: [address] [place] [address], [address] [place] [phone] ?Director: Agustín Galvan MD Authorizing ProviderResult TypeResult StatusSuyapa Bo MDLAB BLOOD ORDERABLES Final ResultPerforming OrganizationAddressCity/State/ZIP CodePhone Number QUEST * Microalbumin / creatinine urine ratio (07/08/2024 8:37 AM EDT)ComponentValue Ref RangeTest MethodAnalysis TimePerformed AtPathologist SignatureCREATININE, RANDOM [id number] - 320 mg/dLQUESTALBUMIN, URINE1.6See Note: mg/dLQUEST Comment: Reference Range: Reference Range Not established ALBUMIN/CREATININE RATIO, RANDOM URINE13<30 mg/g creatQUESTComment: The ADA defines abnormalities in albumin excretion as follows: Albuminuria Category ?Result (mg/g creatinine) Normal to Mildly increased <30 Moderately increased ? 30-299 Severely increased > OR = 300 The ADA recommends that at least two of three specimens collected within a 3-6 month period be abnormal before considering a patient to be within a diagnostic category. Specimen (Source)Anatomical Location / LateralityCollection Method / Volume Collection TimeReceived TimeUrineUrine specimen obtained by clean catch procedure / Tdpzkpa9407/08/2024 8:37 AM EDT07/08/2024 2:55 PM EDT Narrative Resulting Agency Comment Performing Organization Information ?Site ID: QPT ?Name: [facility] ?Address: [address] [place] [address], [address] [place] [phone] ?Director: Agustín Galvan MD Authorizing ProviderResult TypeResult StatusSuyapa Bo MDLAB URINE ORDERABLES Final ResultPerforming OrganizationAddressCity/State/ZIP CodePhone Number QUEST from Last 3 Months or Most Recently Relevant to Health Maintenance Insurance Care Teams Team MemberRelationshipSpecialtyStart DateEnd Date Suyapa Bo MD [address] [place], [place] [phone] PCP - O [facility]03/15/23 Suyapa Bo MD [address] [place], [place] [phone] [facility] - [facility] Erika Chris DO [address] [place] [address] Referring IueqppwaeGvelevxmm99/29/24 Yanelis Garcia NP Nurse WllmxbvhvpbeMnfnidfkf82/29/24
--- OUTSIDE RECORDS SUMMARY | 2025-10-01 18:00 | XMS_ITS | Encounter Summary ---
Author Organization [facility] Address [address] [place] [address] Care Team Providers Care Subgrade Roller Operator Name Role Phone Suyapa Bo MD Unavailable Suyapa Bo MD Primary Care Provider [phone] DotRonnyle DO Unavailable [phone] Yanelis Garcia PANEL MACHINE TENDER Unavailable [phone] Encounter Details DateTypeDepartmentCare Team (Latest Contact Info)Pgasxnxxnxv65/08/2025Travel Social History Tobacco UseTypesPacks/DayYears UsedDateSmoking Tobacco: FormerCigarettesAlcohol UseStandard Drinks/WeekCommentsNot Currently0 (1 standard drink = 0.6 oz pure alcohol)caffeine: 0PHQ-2AnswerDate RecordedPatient Health Questionnaire-2 Score0 07/29/2025Sex and Gender InformationValueDate RecordedSex Assigned at BirthNot on fileLegal SziNlkj9001/03/2023 6:40 PM EDTGender IdentityNot on fileSexual OrientationNot on filedocumented as of this encounter Plan of Treatment DateTypeDepartmentCare Team (Latest Contact Info)Kxkdmxcferr86/12/2025 9:30 AM ESTOffice Visit [facility] [address] [facility] [address] [place] [address] Dieudonne Maldonado MD [address] [facility] [address] [place] [address] 10/29/2025 8:00 AM ESTOffice Visit [facility] [address] [facility] [place] [address] Suyapa Bo MD [address] [facility] [address] [place], [place] [phone] documented as of this encounter Visit Diagnoses Not on filedocumented in this encounter Additional Health Concerns AssessmentNoted TimePHQ-9 Depression Total Score: 11:00 AM EDT documented as of this encounter Care Teams Team MemberRelationshipSpecialtyStart DateEnd Date Suyapa Bo MD [address] [facility] [address] [place], [place] [phone] PCP - ACO [facility]03/15/23 Suyapa Bo MD [address] [facility] [address] [place], [place] [phone] PCP - GeneralFamily Medicine04/03/23 Erika Chris DO [address] [place] [address] Referring DfwhfjtbqEemdkankw48/29/24 Yanelis Garcia NP Nurse JvayiwvemwunRnzioisnj31/29/24documented as of this encounter
--- OUTSIDE RECORDS SUMMARY | 2025-10-01 18:00 | XMS_ITS | Encounter Summary ---
Author Organization [facility] Address [address] [place] [address] Care Team Providers Care Refuse Laborer Name Role Phone Suyapa Bo MD Unavailable Suyapa Bo MD Primary Care Provider [phone] Erika Chris DO Unavailable [phone] Yanelis Garcia NP Unavailable [phone] Encounter Details DateTypeDepartmentCare Team (Latest Contact Info)Rjjkbhkhdim12/03/2025Patient Outreach [facility] [address] [place] [phone] Rupinder Mandel, SANCHEZ [address] [place] [address] Social History Tobacco UseTypesPacks/DayYears UsedDateSmoking Tobacco: FormerCigarettesAlcohol UseStandard Drinks/WeekCommentsNot Currently0 (1 standard drink = 0.6 oz pure alcohol)caffeine: 0PHQ-2AnswerDate RecordedPatient Health Questionnaire-2 Score0 07/29/2025Sex and Gender InformationValueDate RecordedSex Assigned at BirthNot on fileLegal GamDbvs4501/03/2023 6:40 PM EDTGender IdentityNot on fileSexual OrientationNot on filedocumented as of this encounter Progress Notes * Rupinder Mandel RN - 09/23/2025 3:04 PM EST <September 23, 2025, 15:05 - Rupinder Mandel RN> Rec incoming call from . She reported thatpt continues to be in rehab in [place]. This coming Sunday he may get moved to [place] for a couple of weeks. He is improving and she hopes he can get good enough to come home and she can handlehim. She denies needs for pt at this time. She just wanted to let us know. Enc to call for concerns. She vu. documented in this encounter Plan of Treatment DateTypeDepartmentCare Team (Latest Contact Info)Ywzszqbgoxa65/12/2025 9:30 AM ESTOffice Visit [facility] [address] [place] [phone] Dieudonne Maldonado MD [address] [place] [address] 10/29/2025 8:00 AM ESTOffice Visit [facility] [address] [place] [address] Suyapa Bo MD [address] [place] [address] documented as of this encounter Visit Diagnoses Diagnosis Type 2 diabetes mellitus without complication, without long-term current use of insulin (HCC)- Primary Essential hypertension Unspecified essential hypertension documented in this encounter Additional Health Concerns AssessmentNoted TimePHQ-9 Depression Total Score: 11:00 AM EDT documented as of this encounter Care Teams Team MemberRelationshipSpecialtyStart DateEnd Date Suyapa Bo MD [address] [place] [address] PCP - ACO [facility]03/15/23 Suyapa Bo MD [address] [facility] [place] [address] PCP - GeneralFamily Medicine04/03/23 Erika Chris DO [address] [place] [address] Referring GzvmqzcfpZdeambybe61/29/24 Yanelis Garcia NP Nurse NdhejxoxsxyzCvngzcvga24/29/24documented as of this encounter
--- OUTSIDE RECORDS SUMMARY | 2025-10-01 18:00 | XMS_ITS | Encounter Summary ---
Author Organization [facility] Address [address] [place] [address] Care Team Providers Care Electrolytic De Scaler Name Role Phone Suyapa Bo MD Unavailable Suyapa Bo MD Primary Care Provider [phone] Erika Chris DO Unavailable [phone] Yanelis Garcia NP Unavailable [phone] Encounter Details DateTypeDepartmentCare Team (Latest Contact Info)Gykktatwtgu68/09/2025Patient Outreach [facility] [address] [place] [phone] Macy Perera LPN Social History Tobacco UseTypesPacks/DayYears UsedDateSmoking Tobacco: FormerCigarettesAlcohol UseStandard Drinks/WeekCommentsNot Currently0 (1 standard drink = 0.6 oz pure alcohol)caffeine: 0PHQ-2AnswerDate RecordedPatient Health Questionnaire-2 Score0 07/29/2025Sex and Gender InformationValueDate RecordedSex Assigned at BirthNot on fileLegal TraFotz2901/03/2023 6:40 PM EDTGender IdentityNot on fileSexual OrientationNot on filedocumented as of this encounter Progress Notes * Macy Perera LPN - 09/29/2025 8:57 AM EST Images from the original note were not included. Flowsheet Row Patient Outreach from 09/29/2025 in [facility] with Macy Perera LPN Hospital Information ED, Hospital or Jail Facility Discharge? Hospital Patient has been contacted within two business days of discharge No [DUE TO GOING TO SNF] Have two attempts been made to contact the patient within two business days of being discharged? No Diagnosis HYPERKALEMIA, CKD3, NEUROGENIC BLADDER, ILEOSOTOMY INPLACE Discharge Date 09/26/25 Discharged To: Jail Facility (specify SNF in comments) Discharge [facility] Admission Date 09/09/25 Medications Appointments Self Management Patient Teaching Wrap Up documented in this encounter Plan of Treatment DateTypeDepartmentCare Team (Latest Contact Info)Yzgyjfjkyem81/12/2025 9:30 AM ESTOffice Visit [facility] [address] [place] [phone] Dieudonne Maldonado MD [address] [place] [address] 10/29/2025 8:00 AM ESTOffice Visit [facility] [address] [place] [address] Suyapa Bo MD [address] [place] [address] documented as of this encounter Visit Diagnoses Not on filedocumented in this encounter Additional Health Concerns AssessmentNoted TimePHQ-9 Depression Total Score: 11:00 AM EDT documented as of this encounter Care Teams Team MemberRelationshipSpecialtyStart DateEnd Date Suyapa Bo MD [address] [facility] [place] [address] PCP - A[facility]03/15/23 Suyapa Bo MD [address] [facility] [place] [address] PCP - GeneralFamily Medicine04/03/23 Erika Chris DO [address] [place] [address] Referring FuiryhfvxVlaiowlor12/29/24 Yanelis Garcia NP Nurse AfpqvpazivzjFhcnoutcl41/29/24documented as of this encounter
--- OUTSIDE RECORDS SUMMARY | 2025-10-01 18:01 | XMS_ITS ---
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 3b chronic kidney lbqtbio2208/07/2025 Assessment & Plan (08/07/2025 2:42 PM EDT): Stable monitor labs Orders: Comprehensive metabolic panel; Future CBC and differential; Future Uric acid; Future Magnesium; Future Phosphorus; Future Urinalysis with reflex microscopic (catheter); Future Protime-INR; Future B-type natriuretic peptide; Future Cardiorenal zsnwkoci54/07/2025holesterolosis of ztdqmeohyed32/07/2025MI 23.0- 23.9, adult04/03/2025Localized edema04/03/2025MI 26.0-26.9,adult02/19/2025 Shortness of ntgixm0102/19/2025 Assessment & Plan (06/15/2025 5:15 PM EDT): Orders: XR chest 2 views; Future B-type natriuretic peptide; Future Basic metabolic panel; Future Bwzoxvysnhzt88/07/2025NSVT (nonsustained ventricular tachycardia)01/26/2025 Pleural cbmqiyfu75/07/2025Steroid-induced upfsfiucuexdb93/07/2025Urinary qlgobzrvf24/07/2025Acute non-ST elevation myocardial infarction (NSTEMI) 01/20/20259739Hqkfiiocieimkf38/01/2025High risk medication use01/20/2025Never smoked evalipx6501/20/2025Postsurgical percutaneous transluminal coronary angioplasty (PTCA) ytrrko265Acute UTI06/03/2024KI (acute kidney injury)06/03/2024 Rxbvfmkav95/13/3775Jnhdzx10/13/2024Encounter for prophylactic measures, nroniweqped17/13/3012Qpcnmuxuzwadqu50/13/2024Ileostomy zjkqxw2806/03/2024 Assessment & Plan (08/07/2025 2:42 PM EDT): Nausea & /13/2024Skin pugicf9906/03/2024Supratherapeutic INR06/03/2024 Memory loss04/08/2024erebral infarction, left bjwrgvoibd46/18/2024 Cerebrovascular jffpevq7104/08/2024ramps of lower iyunxqxhf78/18/2024TMJ pain dysfunction pjkaybnj81/10/5649Cqmmrulqwyp95/10/2024Ulcerative bkhauvn8705/22/2023 Assessment & Plan (08/07/2025 2:42 PM EDT): stable Assessment & Plan (04/28/2025 10:47 PM EDT): stable uses colostomy Stage 3a chronic kidney urvzhnl1705/22/2023 Assessment & Plan (08/07/2025 2:42 PM EDT): Assessment & Plan (04/28/2025 10:47 PM EDT): stable Type 2 diabetes mellitus without complication, without long-term current use of rchwrvf4605/22/2023 Assessment & Plan (08/07/2025 2:42 PM EDT): Good bs control on jardiance Assessment & Plan (04/27/2025 2:22 PM EDT): Lab Results Component Value Date HGBA1C 7.0 (H) 01/26/2025 Short-term memory loss05/22/2023ure nsmjqppadsrsvbqfiibm37/01/2023Mitral valve mndfujqbaopsh75/01/9137Jllyfpgmxthw33/01/2023 Assessment & Plan (05/24/2023 4:18 PM EDT): Check labs today 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 vzypqixny28/01/2023 Assessment & Plan (08/07/2025 2:42 PM EDT): Stable monitor Ileostomy kjuwxmkkzoh03/01/2023iabetic renal gkpjmev1805/22/2023 Assessment & Plan (07/02/2025 3:25 PM EDT): Lab Results Component Value Date HGBA1C 7.0 (H) 01/26/2025 stable Alzheimer's ropabrn9105/22/2023 Overview (05/24/2023): Managed by neurology Assessment & Plan (08/07/2025 2:42 PM EDT): Stable managed by neurology Assessment & Plan (07/02/2025 3:25 PM EDT): stable 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 Skin around stoma is without irritation Abdominal tysveytfi02/04/2022Essential gjckrtefiapt38/06/2022 Assessment & Plan (08/07/2025 2:42 PM EDT): Good control Assessment & Plan (07/02/2025 3:25 PM EDT): Good control Chronic obstructive pulmonary yfshqag7607/27/2022 Assessment & Plan (08/07/2025 2:42 PM EDT): Stable not currently o2 dependant . Managed by pulmonology Assessment & Plan (07/02/2025 3:25 PM EDT): stable Impaired glucose updduhfei12/25/2019 Assessment & Plan (08/07/2025 2:42 PM EDT): terminal clerk current use of anticoagulant qrcrkox1408/10/2019Ventricular premature nefbynnkapfdsv80/27/2018Transient ischemic dqkiwo9209/06/2016History of aortic valve xljskdstgcy72/16/2016 Overview (05/24/2023): Managed by cardiology Assessment & Plan (08/07/2025 2:42 PM EDT): History of cerebrovascular zoeeixns03/06/2016 Assessment & Plan (08/07/2025 2:42 PM EDT): Statin not cqesubolz79/06/2016 Current Treatment and Therapy Plans No current plan information found. Past Treatment and Therapy Plans No past plan information found. Lifetime Dose Tracking * ChemicalLifetime DoseAutomatic EntryManual EjnuqFgopkyxzy70.97 mSv20.97 mSv0 mSv Resolved Problems ProblemNoted DateDiagnosed DateResolved DateParietoalveolar pneumopathy Moderate persistent allergic qibuzr86Lung pshbjd60H/O afwhqaivc61lucose intolerance ementiaSmall bowel obstruction due to iiijkyzbq00neumoniaortic valve disorder
[2025-10-01 19:00] VITALS: TEMP 39.2
[2025-10-01 20:35] VITALS: BP 102/60; TEMP 36.7
[2025-10-01] MEDS: MORPHINE SULFATE 2 MG/ML SYRINGE IV (20:49)
[2025-10-01 20:51] LABS: Lactate/Lactic Acid 4.5 mmol/L (0.4-2.0)
[2025-10-01] MEDS: VANCOMYCIN HCL 2,000 MG in 0.9 % SODIUM CHLORIDE 500 ML 250 MG IV (21:06)
[2025-10-02 05:22] LABS: A. calcoaceticus-baumannii Cpx NOT DETECTED (NOT DETECTE); Bacteroides fragilis NOT DETECTED (NOT DETECTE); Candida auris NOT DETECTED (NOT DETECTE); Candida glabrata NOT DETECTED (NOT DETECTE); Enterococcus faecalis NOT DETECTED (NOT DETECTE); Enterococcus faecium NOT DETECTED (NOT DETECTE); Klebsiella aerogenes NOT DETECTED (NOT DETECTE); Klebsiella pneumoniae group NOT DETECTED (NOT DETECTE); Proteus spp. NOT DETECTED (NOT DETECTE); Salmonella spp. NOT DETECTED (NOT DETECTE); Serratia marcescens NOT DETECTED (NOT DETECTE); Source BLOOD; Staphylococcus epidermidis NOT DETECTED (NOT DETECTE); Staphylococcus lugdunensis NOT DETECTED (NOT DETECTE); Staphylococcus spp. NOT DETECTED (NOT DETECTE); Stenotrophomonas maltophilia NOT DETECTED (NOT DETECTE); Streptococcus pyogenes NOT DETECTED (NOT DETECTE); Streptococcus spp. NOT DETECTED (NOT DETECTE)
[2025-10-02 06:33] LABS: CTX-M NOT DETECTED (NOT DETECTE); IMP NOT DETECTED (NOT DETECTE); KPC NOT DETECTED (NOT DETECTE); NDM NOT DETECTED (NOT DETECTE); OXA-48-like NOT DETECTED (NOT DETECTE); VIM NOT DETECTED (NOT DETECTE); mcr-1 NOT DETECTED (NOT DETECTE)
[2025-10-02 06:36] LABS: Enterobacterales DETECTED (NOT DETECTE)
--- NOTE | 2025-10-02 09:07 | SWNOTE1 ---
Sophie at [facility] reached out as pt was from there facility and they were unsure if he was still at hospital. RIYA informed Sophie that pt was transferred to [facility].
--- NOTE | 2025-10-04 09:39 | PC.NURSE ---
10/04/25: CULTURE RESULTS AND PRELIMINARY RESULTS FAXED TO [facility] [phone]
== END 2025-10-01 23:05 | disposition short-term general hospital (02) ==
PROVIDERS: Emergency Provider Emergency Medicine; PCP Family Medicine
DX: N10 Acute pyelonephritis (principal); I50.9 Heart failure, unspecified; Z99.81 Dependence on supplemental oxygen; Z93.3 Colostomy status; R50.9 Fever, unspecified; Z90.49 Acquired absence of other specified parts of digestive tract
CPT/HCPCS: 36415; 70450; 71045; 74177; 80048; 80076; 81001; 82150; 83605; 83690; 84484; 85025; 87040; 87077; 87086; 87088; 87150; 87186; 87804; 87811; 93005; 96361; 96365; 96366; 96367; 96375; 99285; J0696; J2270; J3373; Q9967